=== PATIENT | female | born 1960 | race Caucasian/White ===

== ENCOUNTER 2018-03-06 05:23 | Inpatient (IN) ==
[2018-03-06] MEDS ORDERED: Scopalamine 1.5 MG Patch T-DERMAL SCH (06:45)
[2018-03-06] MEDS ORDERED: ceFAZolin 2 GM IV; once IV.SIG SCH (06:45)
[2018-03-06] MEDS ORDERED: Metoprolol Tartrate 25 MG Tablet PO SCH (06:45)
[2018-03-06] MEDS ORDERED: Chlorhexidine Gluconate 2% 1 Pack (2 Cloths) TOPICAL SCH (06:45)
[2018-03-06] MEDS ORDERED: Propofol Inj 500 MG/50 ML Vial ONE (06:48)
[2018-03-06] MEDS ORDERED: Sugammadex Inj 200 MG/2 ML Vial IV.PUSH ONE (06:48)
[2018-03-06] MEDS ORDERED: Dexmedetomidine Inj 200 MCG/2 ML Vial ONE (06:48)
[2018-03-06] MEDS ORDERED: Ketamine Inj 50 MG/5 ML Syringe IV.PUSH ONE (06:49)
[2018-03-06] MEDS ORDERED: Sodium Chlor 0.9% Inj 500 ML IV.SIG SCH (07:00)
[2018-03-06] MEDS ORDERED: Bupivacaine/Epinephrine 0.5% Inj 50 ML Vial ONE (07:02)
[2018-03-06] MEDS ORDERED: Bupivacaine PF 0.25% Inj 30 ML Vial ONE (07:07)
[2018-03-06] MEDS ORDERED: Acetaminophen-HYDROcodone 325/7.5 Liq 15 ML UDC PO PRN (09:27)
[2018-03-06] MEDS ORDERED: Post-op Orders (for Pharmacy) OTHER STA (09:27)
[2018-03-06] MEDS ORDERED: diphenhydrAMINE HCl 12.5 MG/5 ML Elixir UDC PO PRN (09:27)
[2018-03-06] MEDS ORDERED: Dextrose 50% in Water 50 ML Vial IV.PUSH PRN (09:31)
[2018-03-06] MEDS ORDERED: Morphine Inj 30 MG/30 ML PCA.VIAL PCA PRN (09:34)
[2018-03-06] MEDS ORDERED: Naloxone Inj 0.4 MG/ML Vial IV.PUSH PRN (09:34)
[2018-03-06] MEDS ORDERED: *morphine SULFATE 4 MG/ML PERIprocedure ONLY ONE ×2 (09:45→09:56)
[2018-03-06] MEDS ORDERED: Morphine Inj 4 MG/ML Vial ONE (09:47)
[2018-03-06] MEDS ORDERED: *Meperidine Inj 25 MG/ML Vial PERIprocedural Use ONLY ONE (09:52)
[2018-03-06] MEDS ORDERED: HYDROmorphone PF Inj 2 MG/ML Vial ONE (09:59)
[2018-03-06] MEDS: KCL 20 mEq/NACL 0.45% Inj 1,000 ML IV.CONT SCH ×4 (10:45→20:00)
[2018-03-06] MEDS ORDERED: Phenylephrine/NS 1000 MCG/10ML Syringe IV.PUSH ONE (12:00)
[2018-03-06] MEDS ORDERED: Glycopyrrolate Inj 1 MG/5 ML Syringe IV.PUSH ONE (12:00)
[2018-03-06] MEDS ORDERED: Lidocaine PF 1% Inj 5 ML Syringe INFILTRATN ONE (12:00)
[2018-03-06] MEDS ORDERED: Neostigmine Inj 5 MG/5 ML Syringe IV.PUSH ONE (12:00)
[2018-03-06] MEDS ORDERED: Ketorolac Inj 30 MG/ML (IVP) Vial IV.PUSH ONE (12:00)
[2018-03-06] MEDS: Enoxaparin Inj 40 MG/0.4 ML Syringe SQ SCH (13:40)
[2018-03-06] MEDS: Verapamil SR 240 MG Tablet PO SCH (13:41)
[2018-03-06] MEDS: Insulin NovoLIN Regular Correctional Sugar Inj SQ SCH (18:02)
[2018-03-07] MEDS: KCL 20 mEq/NACL 0.45% Inj 1,000 ML IV.CONT SCH (04:08)
[2018-03-07 05:43] LABS: Hematocrit 37.5 % (35.0-46.0); Hemoglobin 12.7 gm/dL (11.6-15.3); Lymph # (Auto) 1.1 th/mm3 (1.0-4.8); Lymph % (Auto) 9.2 % (9.0-44.0); Mean Corpuscular HGB Conc 33.9 % (32.0-36.0); Mean Corpuscular Hemoglobin 28.5 pg (27.0-34.0); Mean Corpuscular Volume 84.1 fL (80.0-100.0); Mean Platelet Volume 8.5 fL (7.0-11.0); Mono # (Auto) 0.4 th/mm3 (0.0-0.9); Mono % (Auto) 3.5 % (0.0-8.0); Neut # (Auto) 10.7 th/mm3 (1.8-7.7); Neut % (Auto) 87.3 % (16.0-70.0); Platelet Count 274 th/mm3 (150-450); Red Blood Count 4.46 mil/mm3 (4.00-5.30); Red Cell Distribution Width 13.7 % (11.6-17.2); White Blood Count 12.3 th/mm3 (4.0-11.0)
[2018-03-07] MEDS: Insulin NovoLIN Regular Correctional Sugar Inj SQ SCH ×5 (05:44→23:54)
[2018-03-07 05:46] LABS: Calcium 9.2 mg/dL (8.5-10.1); Carbon Dioxide 24.7 meq/L (21.0-32.0); Magnesium 2.4 mg/dL (1.5-2.5); Potassium 5.9 meq/L (3.5-5.1)
[2018-03-07] MEDS: Verapamil SR 240 MG Tablet PO SCH (08:18)
--- NOTE | 2018-03-07 08:38 | MP ---
cc: Chip Trotter MD DATE OF OPERATION: 03/06/2018 DATE OF OPERATION: 03/06/2018 PREOPERATIVE DIAGNOSIS: Severe obesity with a body mass index of 36, complicated by hypercholesterolemia, hypertension, type 2 diabetes. POSTOPERATIVE DIAGNOSIS: Severe obesity with a body mass index of 36, complicated by hypercholesterolemia, hypertension, type 2 diabetes. PROCEDURE PERFORMED: Laparoscopic vertical sleeve gastrectomy over a 36-T[place]is[place] ViSiGi bougie. SURGEON: Chip Trotter MD ANESTHESIA: General endotracheal anesthesia. ESTIMATED BLOOD LOSS: Scant. FINDINGS: Fatty liver. SPECIMENS: None. COMPLICATIONS: None. PROCEDURE IN DETAIL: The patient was brought to the operating room and placed on the operating table in supine position, bilateral sequential inflation device placed on lower extremities. General anesthesia was instituted. Antibiotics was initiated. The abdomen was prepped and draped sterilely. A point 15 cm distal to the xiphoid in the midline was anesthetized with 0.25% Marcaine with epinephrine. A skin incision was made, 5-mm OptiView port placed under direct vision and pneumoperitoneum created. Under direct vision, three 5-mm left upper quadrant, a 15-mm right upper quadrant, 5-mm right upper quadrant ports placed. Prior to placement of all ports the skin and peritoneum were anesthetized with 0.25% Marcaine with epinephrine. The patient was placed in reverse Trendelenburg position left side up, the Kelly-Flex retractor was placed. The left lobe of the liver was retracted. The vasculature along the greater curvature of the stomach was using harmonic scalpel starting a distance 5-cm proximal to the pylorus and carried towards the angle of His. The angle of His was taken down bluntly. Posterior ligamentous attachments were sharply . A 36-[place] ViSiGi bougie was placed at the start of the case, was placed on suction. Division of the stomach started 5 cm proximal to the pylorus and carried towards the angle of His to completely excise approximately 80% of the stomach. This was performed using an [employer] Flex stapler at the pylorus. The first firing was with a black load, followed by a green load and four gold loads. All staple loads were reinforced with SeamGuard. A distance of 2 cm was left from the angle incisura and the staple line and a distance of 1 cm left from the GE junction and the staple line. The pylorus was then occluded, methylene blue tinged saline was instilled. There was no evidence of extravasation. The gastrocolic ligament was then sutured to the posterior leaflet of the SeamGuard using a 2-0 Vicryl suture. Bleeding points were controlled with Evicel. The excised stomach was removed from the peritoneal cavity through the 15-mm port site. The fascia at the 15-mm port site was approximated with 0 Vicryl suture. The CO2 was then released, all ports were removed, all skin incisions closed with 4-0 Monocryl. The abdominal wall was cleaned. A sterile dressing was placed. The patient was awakened and taken to the recovery room. MD LALYA Hatfield/KEITH , 08:27 AM , 08:37 AM [place]
[2018-03-07] MEDS: Sod Chloride 0.9% Inj 1,000 ML IV.CONT SCH (09:56)
[2018-03-07] MEDS: Enoxaparin Inj 40 MG/0.4 ML Syringe SQ SCH (12:30)
--- NOTE | 2018-03-07 13:28 | P.PNGS ---
Subjective Patient reports: no new complaints Physical Exam Vital signs: Vital Signs 03/06/18 13:24 03/06/18 16:00 03/06/18 16:38 Temperature 98.7 F Pulse Rate 51 L Respiratory Rate 18 Blood Pressure 113/57 L Pulse Oximetry 97 99 98 03/06/18 20:00 03/06/18 22:36 03/07/18 00:00 Temperature 97.2 F L 97.6 F Pulse Rate 72 50 L Respiratory Rate 18 18 18 Blood Pressure 119/61 123/57 L Pulse Oximetry 98 98 03/07/18 04:00 03/07/18 08:00 03/07/18 08:18 Temperature 97.5 F L 98.1 F Pulse Rate 56 L 60 Respiratory Rate 18 18 Blood Pressure 117/59 L 121/58 L Pulse Oximetry 100 97 96 03/07/18 12:00 Temperature 97.7 F Pulse Rate 51 L Respiratory Rate 18 Blood Pressure 114/58 L Pulse Oximetry 96 Intake & Output 03/06/18 03/07/18 03/07/18 18:59 06:59 18:59 Intake Total 1100 / 1100 1340 / 1340 Balance 1100 / 1100 1340 / 1340 Intake: IV 1100 / 1100 1100 / 1100 Potassium Chlor 20 mEq/NACL 0. 1000 / 1000 1000 / 1000 45% Inj 1,000 ML @ 125 mls/hr IV.CONT .Q8H ELIZABETH Rx#:[id number] Ancef Inj 1,000 MG In NS Inj 100 / 100 100 / 100 100 ML @ 200 mls/hr IV.SIG Q8H ELIZABETH Rx#:[id number] Oral 240 / 240 Other: # Voids 3 Narrative: Laboratory Results - last 12 hr 03/07/18 03/07/18 03/07/18 04:56 05:00 05:00 WBC 12.3 H RBC 4.46 Hgb 12.7 Hct 37.5 MCV 84.1 MCH 28.5 MCHC 33.9 RDW 13.7 Plt Count 274 MPV 8.5 Neut % (Auto) 87.3 H Lymph % (Auto) 9.2 Gray % (Auto) 3.5 Eos % (Auto) 0.0 Baso % (Auto) 0.0 Neut # (Auto) 10.7 H Lymph # (Auto) 1.1 Gray # (Auto) 0.4 Eos # (Auto) 0.0 Baso # (Auto) 0.0 WBC Differential . Differential Comment Auto diff final Sodium 140 Potassium 5.9 H Chloride 105 Carbon Dioxide 24.7 Anion Gap 10 BUN 14 Creatinine 0.70 Estimated GFR 86 L POC Glucose 228 H Random Glucose 220 H Calcium 9.2 Magnesium 2.4 03/07/18 12:26 WBC RBC Hgb Hct MCV MCH MCHC RDW Plt Count MPV Neut % (Auto) Lymph % (Auto) Gray % (Auto) Eos % (Auto) Baso % (Auto) Neut # (Auto) Lymph # (Auto) Gray # (Auto) Eos # (Auto) Baso # (Auto) WBC Differential Differential Comment Sodium Potassium Chloride Carbon Dioxide Anion Gap BUN Creatinine Estimated GFR POC Glucose 198 H Random Glucose Calcium Magnesium - Constitutional no acute distress - Routine Respiratory Exam Present: CTA bilaterally - Routine Cardiovascular Exam Present: RRR - Routine Abdominal Exam Present: tenderness Comments: surgical incisions CDI Assessment and Plan - Assessment (1) Status post laparoscopic sleeve gastrectomy Code(s): Z98.84 - Bariatric surgery status Status: Acute Onset Date: ~ - Plan Change Reglan to scheduled and add carafate for reflux 10 units Levemir QHS and watch glucose trends Increase fluids as tolerated D/C potassium in IVF, check BMP in AM Discharge Planning: D/C home tomorrow - Attending Attestation The exam, history, and the medical decision-making described in the above note were completed with the assistance of the mid-level provider. I reviewed and agree with the findings presented. I attest that I had a [id number] encounter with the patient on the same day, and personally performed and documented my assessment and findings in the medical record.
[2018-03-07] MEDS: Sucralfate Liq 1 GM/10 ML UDC PO SCH ×3 (14:09→20:25)
[2018-03-07] MEDS ORDERED: Insulin Detemir Inj 1,000 UNIT/10 ML Vial SQ SCH (21:00)
[2018-03-08] MEDS: Insulin NovoLIN Regular Correctional Sugar Inj SQ SCH ×3 (05:29→18:35)
[2018-03-08] MEDS: Verapamil SR 240 MG Tablet PO SCH (08:38)
[2018-03-08] MEDS: Sucralfate Liq 1 GM/10 ML UDC PO SCH ×3 (08:38→16:15)
[2018-03-08 09:30] LABS: Anion Gap 10 meq/L (5-15); Blood Urea Nitrogen 14 mg/dL (7-18); Calcium 8.8 mg/dL (8.5-10.1); Chloride 105 meq/L (98-107); Glomerular Filtration Rate Greater Than 89 mL/min (>89); Glucose,Random 186 mg/dL (74-106); Potassium 4.1 meq/L (3.5-5.1); Sodium 141 meq/L (136-145)
[2018-03-08] MEDS: Sod Chloride 0.9% Inj 1,000 ML IV.CONT SCH (10:03)
[2018-03-08] MEDS: Enoxaparin Inj 40 MG/0.4 ML Syringe SQ SCH (12:42)
[2018-03-08] MEDS ORDERED: Promethazine 25 MG Supp RECTAL PRN (13:08)
--- NOTE | 2018-03-08 15:00 | P.PNGS ---
Subjective Patient reports: no new complaints, flatus Physical Exam Vital signs: Vital Signs 03/07/18 16:00 03/07/18 20:00 03/08/18 00:00 Temperature 98.4 F 98.3 F 97.8 F Pulse Rate 51 L 54 L 63 Respiratory Rate 19 18 15 Blood Pressure 120/59 L 128/71 156/69 H Pulse Oximetry 97 98 95 03/08/18 08:00 03/08/18 11:29 03/08/18 12:13 Temperature 98.0 F 98.2 F Pulse Rate 63 61 Respiratory Rate 24 17 Blood Pressure 156/72 H 164/75 H Pulse Oximetry 95 95 96 Intake & Output 03/07/18 03/08/18 03/08/18 18:59 06:59 18:59 Intake Total 640 / 640 240 / 240 1000 / 1000 Balance 640 / 640 240 / 240 1000 / 1000 Weight 100 kg Intake: IV 1000 / 1000 NS Inj 1,000 ML @ 42 mls/hr IV. 1000 / 1000 CONT .[id number] ELIZABETH Rx#:[id number] Oral 640 / 640 240 / 240 Other: # Voids 8 Narrative: Laboratory Results - last 12 hr - Constitutional no acute distress - Routine Abdominal Exam Present: soft, tenderness (normal post operative tenderness, surgical incisions CDI) Assessment and Plan - Assessment (1) Status post laparoscopic sleeve gastrectomy Code(s): Z98.84 - Bariatric surgery status Status: Acute Onset Date: ~ - Plan Will D/C home today with Carafate Meds as per discharge orders Continue to increase fluids as tolerated Continue with frequent ambulation Discharge Planning: D/C home today - Attending Attestation The exam, history, and the medical decision-making described in the above note were completed with the assistance of the mid-level provider. I reviewed and agree with the findings presented. I attest that I had a [id number] encounter with the patient on the same day, and personally performed and documented my assessment and findings in the medical record.
== END 2018-03-08 18:45 | disposition home or self-care (01) ==
LOC: HSDI 05:23 → N07 12:47
PROVIDERS: ADMIT Surgery; ATTEND Surgery
DX: Z85.828 Personal history of other malignant neoplasm of skin; K21.9 Gastro-esophageal reflux disease without esophagitis; I10 Essential (primary) hypertension; E78.00 Pure hypercholesterolemia, unspecified; E11.9 Type 2 diabetes mellitus without complications; E66.01 Morbid (severe) obesity due to excess calories; Z68.35 Body mass index [BMI] 35.0-35.9, adult; Z88.8 Allergy status to other drugs, medicaments and biological substances; Z79.4 Long term (current) use of insulin; K76.0 Fatty (change of) liver, not elsewhere classified

== ENCOUNTER 2018-05-12 03:30 | Inpatient (IN) ==
[2018-05-12 04:04] LABS: Baso # (Auto) 0.1 th/mm3 (0.0-0.2); Baso % (Auto) 0.6 % (0.0-2.0); Eos % (Auto) 0.1 % (0.0-4.0); Hematocrit 48.6 % (35.0-46.0); Hemoglobin 16.2 gm/dL (11.6-15.3); Lymph # (Auto) 1.8 th/mm3 (1.0-4.8); Lymph % (Auto) 14.1 % (9.0-44.0); Mean Corpuscular HGB Conc 33.4 % (32.0-36.0); Mean Corpuscular Hemoglobin 29.5 pg (27.0-34.0); Mean Corpuscular Volume 88.2 fL (80.0-100.0); Mean Platelet Volume 8.5 fL (7.0-11.0); Mono # (Auto) 0.9 th/mm3 (0.0-0.9); Mono % (Auto) 6.9 % (0.0-8.0); Neut # (Auto) 10.1 th/mm3 (1.8-7.7); Neut % (Auto) 78.3 % (16.0-70.0); Platelet Count 335 th/mm3 (150-450); Red Blood Count 5.51 mil/mm3 (4.00-5.30); Red Cell Distribution Width 15.7 % (11.6-17.2); White Blood Count 12.9 th/mm3 (4.0-11.0)
[2018-05-12] MEDS ORDERED: Pantoprazole Inj 80 MG in Sodium Chlor 0.9% Inj 35 ML IV.SIG ONE (04:08)
[2018-05-12] MEDS ORDERED: Sod Chloride 0.9% Inj 1,000 ML IV.SIG SCH ×2 (04:15→06:00)
[2018-05-12 04:19] LABS: Alanine Aminotransferase 23 U/L (10-53); Albumin 4.7 g/dL (3.4-5.0); Anion Gap 21 meq/L (5-15); Aspartate Aminotransferase 17 U/L (15-37); Blood Urea Nitrogen 14 mg/dL (7-18); Calcium 9.9 mg/dL (8.5-10.1); Carbon Dioxide 9.9 meq/L (21.0-32.0); Chloride 110 meq/L (98-107); Glomerular Filtration Rate 54 mL/min (>89); Glucose,Random 174 mg/dL (74-106); Potassium 4.4 meq/L (3.5-5.1); Sodium 141 meq/L (136-145)
[2018-05-12 04:23] LABS: Alkaline Phosphatase 95 U/L (45-117); Total Protein 9.4 g/dL (6.4-8.2)
--- NOTE | 2018-05-12 04:36 | ED ---
HPI General Chief complaint: Chest Pain Stated complaint: vomiting, shoulder pain Time Seen by Provider: 05/12/18 03:45 Source: patient and old records reviewed Mode of arrival: ambulatory Limitations: no limitations History of Present Illness HPI narrative: This patient presents with a chief complaint of chest pain and inability to tolerate oral food or fluids. Onset was about 2 days ago. She reports 1 or 2 episodes of emesis. This patient's pertinent history is that she is status post gastric sleeve gastrectomy on 03/06. This was done by Dr. Mobley. She is on a proton pump inhibitor and has been compliant with her medication. She states that she was doing well until a couple of days ago when her symptoms started. She is feeling weak and dizzy. Her mouth is dry. Onset (ago): day(s) (2) Severity: moderate Relieving factors: none Exacerbating factors: none Associated symptoms: chest pain, loss of appetite, nausea/vomiting and weakness Related Data Home Medications Medication Instructions Recorded Confirmed pantoprazole 40 mg PO DAILY 03/03/18 05/12/18 pravastatin 40 mg PO DAILY 03/03/18 05/12/18 verapamil 240 mg PO QAM 03/03/18 05/12/18 empagliflozin [Jardiance] 25 mg PO DAILY 05/12/18 05/12/18 Allergies Allergy/AdvReac Type Severity Reaction Status Date / Time epinephrine Allergy Severe HEART Verified 05/12/18 03:35 RACES SVT Review of Systems ROS: all other systems reviewed are negative [facility] Medical History Medical History Diabetes (Acute) High cholesterol (Acute) Hx of fracture of patella (Acute) Hypertension (Acute) Obesity (Acute) Pain, joint, knee, left (Acute) Pain, joint, knee, right (Acute) Surgical History Surgical History History of (Acute) History of cervical discectomy (Acute) History of renal stent (Acute) Hx of cataract removal with insertion of prosthetic lens (Acute) Hx of cholecystectomy (Acute) Hx of tonsillectomy (Acute) Social History Social History Substance History: No History of Abuse Second Hand Smoke Exposure: No Smoking Status: Never smoker How Often Do You Have a Drink Containing Alcohol: Never Recent Travel in [facility] within the Last 8 Weeks: No Recent Out of Country Travel within the Last 8 Weeks: No Immunization History Tetanus Immunization: >5 Years Hx Influenza Vaccine This Season: No Exam Const General: cooperative, healthy appearing, comfortable, no acute distress and well developed Orientation: alert, awake and oriented x3 HENMT Head: normal to inspection, normocephalic and atraumatic Mouth: moist mucous membranes abnormal (Mucous membranes are slightly dry) Eyes Alignment and Position: alignment normal and position abnormal Conjunctivae: conjunctivae normal Sclera: sclerae normal EOM: EOM intact bilaterally Neck Neck: normal visual inspection and full ROM Chest Chest: normal inspection of the chest Resp Effort & Inspection: normal respiratory effort and able to speak in complete sentences Auscultation: clear to auscultation bilaterally Cardio Rate: regular rate Rhythm: regular rhythm GI Inspection: normal to inspection Palpation: soft Back/Spine/Pelvis Cervical Spine: cervical ROM normal Thoracic/Lumbar Spine: thoraco-lumbar ROM normal Skin General: no rashes or lesions noted, turgor normal and dry skin Neuro General: alert, awake, oriented x3, moves all extremities and CN's II-XI intact bilaterally Extrem General: normal to inspection and full ROM Psych Appearance: grossly normal Mental Status: mental status grossly normal Speech and Movement: speech and movement normal Mood: congruent mood Affect: normal affect Attitude: cooperative Thought Process: normal Thought Content: normal Judgment: judgment good Course Reevaluation(s) Reevaluation #1: I have explained the laboratory findings with the patient and her and have told her that she needs to be admitted to the hospital for further evaluation and treatment. She is feeling much better. Time: 05:53 Consultations Consultation #1: Dr. Paniagua will see the patient. She will be admitted to their service. He has suggested an upper GI series which has been ordered. Time: 05:52 Initial Documented Vital Signs Temperature 98.1 F 05/12/18 03:35 Pulse Rate 88 05/12/18 03:35 Respiratory Rate 16 05/12/18 03:35 Blood Pressure 146/74 H 05/12/18 03:35 Pulse Oximetry 100 05/12/18 03:35 Last Documented Vital Signs Temperature 98.1 F 05/12/18 03:35 Pulse Rate 87 05/12/18 03:51 Respiratory Rate 16 05/12/18 03:35 Blood Pressure 146/74 H 05/12/18 03:35 Pulse Oximetry 98 05/12/18 03:53 Medical Decision Making MDM Narrative Medical decision making narrative: This patient is 2 months status post gastric sleeve gastrectomy. She has been doing well postoperatively until couple of days ago. She has developed some chest discomfort associated with inability to tolerate oral fluids or food. She reports compliance with her PPI. An IV has been started. She is being given a fluid bolus. She is being given a dose of IV Reglan as well as a Protonix bolus and drip. Laboratory evaluation is concerning for acidosis. A lactic acid level has been added. Medical Screen Exam Complete: Yes Emergency Medical Condition: Yes Differential Diagnosis Differential Diagnosis: Differential diagnosis includes but is not limited to viral gastritis, food poisoning, pancreatitis, pneumonia, hepatitis, acute coronary syndrome, Medical Records Medical records reviewed: Yes I reviewed the patient's medical records. Lab Data Lab results reviewed: Yes I reviewed the patient's lab results. Result diagrams: 05/12/18 03:55 05/12/18 03:55 Lab Results 05/12/18 05/12/18 05/12/18 Range/Units 03:55 03:55 05:04 WBC 12.9 H (4.0-11.0) th/mm3 RBC 5.51 H (4.00-5.30) mil/mm3 Hgb 16.2 H (11.6-15.3) gm/dL Hct 48.6 H (35.0-46.0) % MCV 88.2 (80.0-100.0) fL MCH 29.5 (27.0-34.0) pg MCHC 33.4 (32.0-36.0) % RDW 15.7 (11.6-17.2) % Plt Count 335 (150-450) th/mm3 MPV 8.5 (7.0-11.0) fL Neut % (Auto) 78.3 H (16.0-70.0) % Lymph % (Auto) 14.1 (9.0-44.0) % Webb % (Auto) 6.9 (0.0-8.0) % Eos % (Auto) 0.1 (0.0-4.0) % Baso % (Auto) 0.6 (0.0-2.0) % Neut # (Auto) 10.1 H (1.8-7.7) th/mm3 Lymph # (Auto) 1.8 (1.0-4.8) th/mm3 Webb # (Auto) 0.9 (0.0-0.9) th/mm3 Eos # (Auto) 0.0 (0.0-0.4) th/mm3 Baso # (Auto) 0.1 (0.0-0.2) th/mm3 WBC Differential . Differential Comment Auto diff final Sodium 141 (136-145) meq/L Potassium 4.4 (3.5-5.1) meq/L Chloride 110 H (98-107) meq/L Carbon Dioxide 9.9 L (21.0-32.0) meq/L Anion Gap 21 H (5-15) meq/L BUN 14 (7-18) mg/dL Creatinine 1.04 H (0.50-1.00) mg/dL Estimated GFR 54 L (>89) mL/min Random Glucose 174 H (74-106) mg/dL Lactic Acid 1.0 (0.4-2.0) mmol/L Calcium 9.9 (8.5-10.1) mg/dL Total Bilirubin 0.7 (0.2-1.0) mg/dL AST 17 (15-37) U/L ALT 23 (10-53) U/L Alkaline Phosphatase 95 (45-117) U/L Troponin I Less than 0.02 L (0.02-0.05) ng/mL Total Protein 9.4 H (6.4-8.2) g/dL Albumin 4.7 (3.4-5.0) g/dL Imaging Data Radiologist's impression: Chest X-Ray 05/12/18 03:48 CONCLUSION: No evidence of acute cardiopulmonary disease. ECG Data EKG Prior to Arrival: No Attestation: I personally reviewed and interpreted this ECG as follows: (EKG shows sinus rhythm with a ventricular rate of 81. No acute STT wave changes.) Discharge Plan Discharge Disposition Patient Disposition: 30 Still Patient Discharge Details Diagnosis: Acidosis, metabolic, Dysphagia Physicians Team ED Provider: Gisela Savage Primary Care Provider: Ghada Vaughn Attending Provider: Mikey Paniagua Status ED Status: Admitted Patient
[2018-05-12] MEDS ORDERED: Pantoprazole Inj 80 MG in Sodium Chlor 0.9% Inj 100 ML IV.CONT SCH (05:00)
--- NOTE | 2018-05-12 05:03 | XR ---
EXAM DATE: 05/12/2018 4:48 AM EDT AGE/SEX: 57 years / Female INDICATIONS: Chest pain. CLINICAL DATA: This is the patient's initial encounter. Patient reports that signs and symptoms have been present for 1 day and indicates a pain score of 4/10. MEDICAL/SURGICAL HISTORY: Diabetes mellitus type II. SVT. Gastric bypass. section. Cholecystectomy. C-spine discectomy. COMPARISON: No prior exams available for comparison. FINDINGS: A single AP view of the chest demonstrates the lungs to be symmetrically aerated without evidence of mass, infiltrate or effusion. The cardiomediastinal contours are unremarkable. Osseous structures a re intact. CONCLUSION: No evidence of acute cardiopulmonary disease. Electronically signed by: Javi Dawson MD 05/12/2018 5:02 AM EDT
[2018-05-12] MEDS ORDERED: Diatrizoate Meglum/Diatrizoate Sod Liq 120 ML Bottle (for RAD diag) PO ONE (09:30)
--- NOTE | 2018-05-12 10:01 | FL ---
EXAM DATE: 05/12/2018 9:47 AM EDT AGE/SEX: 57 years / Female INDICATIONS: Nausea and vomiting with loss of appetite and weakness. CLINICAL DATA: This is the patient's initial encounter. Patient reports that signs and symptoms have been present for 3 days and indicates a pain score of 0/10. MEDICAL/SURGICAL HISTORY: None. . February 2018 gastric sleeve surgery. COMPARISON: No prior exams available for comparison. FLUORO TIME: 1.9 IMAGE COUNT: 8 FINDINGS: Patient has had a gastric sleeve. There is a small gastric pouch that empties poorly in the upright p osition. Gastrografin remains pooled within the esophagus for 5 minutes. On a delayed film 50 minutes post procedure contrast is seen going through a normal-appearing sleeve into the distal stomach. CONCLUSION: Initial films have suggested obstruction of the sleeve. The sleeve is not obstructed but poorly empties even in the upright position. Electronically signed by: Javier Wright MD 05/12/2018 9:59 AM EDT
[2018-05-12] MEDS ORDERED: Morphine Sulfate Inj 2 MG/ML Vial IV.PUSH PRN (11:37)
[2018-05-12] MEDS: Sod Chloride 0.9% Inj 1,000 ML IV.CONT SCH ×2 (13:36→19:50)
--- NOTE | 2018-05-12 13:55 | P.CONGI ---
History of Present Illness Consult date: 05/12/18 Consult reason: Dysphagia with emesis post gastric sleeve. Chief complaint: Dysphagia following Gastric Sleeve, Acidosis History of Present Illness: Ms. Gandhi is a 57-year-old female who presented to the emergency room today with complaint of difficulty swallowing solid food and liquids with persistent nausea and vomiting over the last 2-3 days. Patient's history significant for gastric sleeve gastrectomy on March 06, 2018. Patient takes PPI as home medication and reports that she has been taking same without interruption. She denies use of any blood thinners. Patient n.p.o. at this time. She reports last EGD done prior to gastric sleeve surgery. Last colonoscopy done at age 48 per patient with no abnormalities found at that time. Patient denies any noted blood in emesis or stools. States she has a bowel movement every 3-4 days and that is her norm. Patient denies any abdominal pain. She endorses increasing generalized weakness over the last few days which she attributes to the nausea and vomiting. This practice has been consulted to evaluate patient for dysphagia, nausea and vomiting. Plan for EGD today. <Mary Pritchett - Last Filed: 05/12/18 13:59> Review of Systems Constitutional: Reports fatigue, Reports weakness, Denies body ache(s), Denies chills Ears, Nose, Mouth, and Throat: Reports difficulty swallowing, Reports dry mouth Cardiovascular: Reports lightheadedness, Denies chest pain Comments: Patient reported chest wall pain while driving to hospital but denies same at this time and states it was not related to eating a meal. Respiratory: Denies cough, Denies shortness of breath Gastrointestinal: Reports difficulty swallowing, Reports nausea, Reports vomiting, Denies abdominal pain, Denies bright, red blood in stools, Denies change in bowel habits, Denies change in stools, Denies coffee ground vomit, Denies heartburn, Denies vomiting blood <Mary Pritchett - Last Filed: 05/12/18 13:59> PMFSH - History History Provided By: Patient - Medical History Medical History: Medical History (Last Reviewed 05/12/18 @ 04:33 by Gisela Savage) Diabetes High cholesterol Hx of fracture of patella Hypertension Obesity Pain, joint, knee, left Pain, joint, knee, right - Surgical History Surgical History: Surgical History (Last Reviewed 05/12/18 @ 04:33 by Gisela Savage) History of History of cervical discectomy History of renal stent Hx of cataract removal with insertion of prosthetic lens Hx of cholecystectomy Hx of tonsillectomy - Tobacco History Second Hand Smoke Exposure: No Smoking Status: Never smoker - Alcohol History How Often Do You Have a Drink Containing Alcohol: Never - Substance Use History Substance History: No History of Abuse - Travel History Recent Travel in the [place] Within the Last 8 Weeks: No Recent Travel Out of the Country Within the Last 8 Weeks: No - Immunization History Tetanus Immunization: >5 Years Hx Influenza Vaccine This Season: No <Mary Pritchett - Last Filed: 05/12/18 13:59> - Medical History Medical History: Medical History (Last Reviewed 05/12/18 @ 04:33 by Gisela Savage) Diabetes High cholesterol Hx of fracture of patella Hypertension Obesity Pain, joint, knee, left Pain, joint, knee, right - Surgical History Surgical History: Surgical History (Last Reviewed 05/12/18 @ 04:33 by Gisela Savage) History of History of cervical discectomy History of renal stent Hx of cataract removal with insertion of prosthetic lens Hx of cholecystectomy Hx of tonsillectomy <Jerrell Casper - Last Filed: 05/12/18 18:17> Medications and Allergies Active Medications: Active Medications Pantoprazole Sodium 80 mg/ (Sodium Chloride) 100 mls @ 10 mls/hr IV.CONT CONT ELIZABETH Last Admin: 05/12/18 05:34 Dose: 10 mls/hr Sodium Chloride (Ns Inj) 1,000 mls @ 0 mls/hr IV.SIG BOLUS ELIZABETH Last Infusion: 05/12/18 07:19 Dose: Infused Sodium Chloride (Ns Inj) 1,000 mls @ 0 mls/hr IV.SIG BOLUS ELIZABETH Last Infusion: 05/12/18 08:31 Dose: Infused Sodium Chloride (Ns Inj) 1,000 mls @ 125 mls/hr IV.CONT .Q8H ELIZABETH Last Admin: 05/12/18 13:36 Dose: 125 mls/hr Morphine Sulfate (Morphine Inj) 2 mg IV.PUSH Q4H PRN PRN Reason: PAIN SCALE 1 TO 5 Ondansetron HCl (Zofran Inj) 4 mg IV.PUSH Q6H PRN PRN Reason: NAUSEA Last Admin: 05/12/18 12:01 Dose: 4 mg Oxycodone/Acetaminophen (Percocet 5/325 Mg) 1 tab PO Q4H PRN PRN Reason: PAIN SCALE 1 TO 5 Sodium Chloride (Ns Flush) 2 ml IV.FLUSH BID ELIZABETH Sodium Chloride (Ns Flush) 2 ml IV.FLUSH UNSCH PRN PRN Reason: FLUSH AFTER USING IV ACCESS <Mary Pritchett - Last Filed: 05/12/18 13:59> Active Medications: Active Medications Pantoprazole Sodium 80 mg/ (Sodium Chloride) 100 mls @ 10 mls/hr IV.CONT CONT ELIZABETH Last Infusion: 05/12/18 16:25 Dose: 10 mls/hr Sodium Chloride (Ns Inj) 1,000 mls @ 125 mls/hr IV.CONT .Q8H ELIZABETH Last Admin: 05/12/18 13:36 Dose: 125 mls/hr Miscellaneous Information ([facility] Nursing Information) 1 each OTHER UNSCH PRN PRN Reason: SEE LABEL COMMENTS Stop: 05/13/18 17:32 Morphine Sulfate (Morphine Inj) 2 mg IV.PUSH Q4H PRN PRN Reason: PAIN SCALE 1 TO 5 Ondansetron HCl (Zofran Inj) 4 mg IV.PUSH Q6H PRN PRN Reason: NAUSEA Last Admin: 05/12/18 12:01 Dose: 4 mg Oxycodone/Acetaminophen (Percocet 5/325 Mg) 1 tab PO Q4H PRN PRN Reason: PAIN SCALE 1 TO 5 Sodium Chloride (Ns Flush) 2 ml IV.FLUSH BID ELIZABETH Sodium Chloride (Ns Flush) 2 ml IV.FLUSH UNSCH PRN PRN Reason: FLUSH AFTER USING IV ACCESS <Jerrell Casper - Last Filed: 05/12/18 18:17> Allergies Allergy/AdvReac Type Severity Reaction Status Date / Time epinephrine Allergy Severe HEART Verified 05/12/18 03:35 RACES SVT Home Medications Medication Instructions Recorded Confirmed Type pantoprazole 40 mg PO DAILY 03/03/18 05/12/18 History pravastatin 40 mg PO DAILY 03/03/18 05/12/18 History verapamil 240 mg PO QAM 03/03/18 05/12/18 History empagliflozin [Jardiance] 25 mg PO DAILY 05/12/18 05/12/18 History Exam Vital signs: Vital Signs 05/12/18 03:35 05/12/18 03:51 05/12/18 03:53 Temperature 98.1 F Pulse Rate 88 87 Respiratory Rate 16 Blood Pressure 146/74 H Pulse Oximetry 100 98 05/12/18 07:20 05/12/18 07:21 05/12/18 08:00 Temperature Pulse Rate 92 H 87 Respiratory Rate 22 16 Blood Pressure 120/61 146/67 H Pulse Oximetry 99 99 99 05/12/18 12:00 Temperature 97.8 F Pulse Rate 85 Respiratory Rate 16 Blood Pressure 140/64 Pulse Oximetry 97 Intake & Output 05/11/18 05/12/18 05/12/18 18:59 06:59 18:59 Intake Total 35 / 35 1999 Balance 35 / 35 1999 Weight 82.554 kg Intake: IV 35 / 35 1999 Protonix Inj 80 MG In NS Inj 35 35 / 35 ML @ 420 mls/hr IV.SIG BOLUS ONE Rx#:[id number] NS Inj 1,000 ML @ Wide Open IV. 1999 SIG BOLUS ELIZABETH Rx#:[id number] - Constitutional no acute distress, mild distress - Routine HEENT Exam Head: Present: normocephalic - Routine Neck Exam Present: supple, full ROM - Routine Chest/Breast/Axilla Exam Chest wall: Absent: tenderness - Routine Respiratory Exam Present: CTA bilaterally. Absent: accessory muscle use - Routine Cardiovascular Exam Present: RRR - Routine Abdominal Exam Present: soft, normoactive bowel sounds. Absent: tenderness, distended, guarding, firm - Routine Extremities Exam Present: full ROM. Absent: edema - Routine Skin Exam Present: intact, dry, warm - Routine Neurological Exam Present: alert, oriented X3 <Pritchett,Mary - Last Filed: 05/12/18 13:59> Vital signs: Vital Signs 05/12/18 03:35 05/12/18 03:51 05/12/18 03:53 Temperature 98.1 F Pulse Rate 88 87 Respiratory Rate 16 Blood Pressure 146/74 H Pulse Oximetry 100 98 05/12/18 07:20 05/12/18 07:21 05/12/18 08:00 Temperature Pulse Rate 92 H 87 Respiratory Rate 22 16 Blood Pressure 120/61 146/67 H Pulse Oximetry 99 99 99 05/12/18 12:00 05/12/18 16:00 05/12/18 17:20 Temperature 97.8 F 98.0 F 98 F Pulse Rate 85 97 H 129 H Respiratory Rate 16 16 22 Blood Pressure 140/64 154/72 H 166/76 H Pulse Oximetry 97 97 100 05/12/18 17:30 05/12/18 17:45 05/12/18 18:00 Temperature 97.5 F L Pulse Rate 116 H 109 H 105 H Respiratory Rate 22 25 H 22 Blood Pressure 138/56 L 131/62 131/60 Pulse Oximetry 99 100 100 Intake & Output 05/11/18 05/12/18 05/12/18 18:59 06:59 18:59 Intake Total 1999 Balance 1999 Weight 82.554 kg Intake: IV 1999 Protonix Inj 80 MG In NS Inj 0 / 0 100 ML @ 10 mls/hr IV.CONT CONT ELIZABETH Rx#:[id number] Protonix Inj 80 MG In NS Inj 35 35 ML @ 420 mls/hr IV.SIG BOLUS ONE Rx#:[id number] NS Inj 1,000 ML @ Wide Open IV. 1999 SIG BOLUS ELIZABETH Rx#:[id number] <Jerrell Casper E - Last Filed: 05/12/18 18:17> Results - Labs CBC & Chem 7: 05/12/18 03:55 05/12/18 03:55 Labs: Laboratory Results - last 24 hr 05/12/18 05/12/18 05/12/18 03:55 03:55 05:04 WBC 12.9 H RBC 5.51 H Hgb 16.2 H Hct 48.6 H MCV 88.2 MCH 29.5 MCHC 33.4 RDW 15.7 Plt Count 335 MPV 8.5 Neut % (Auto) 78.3 H Lymph % (Auto) 14.1 [place] % (Auto) 6.9 Eos % (Auto) 0.1 Baso % (Auto) 0.6 Neut # (Auto) 10.1 H Lymph # (Auto) 1.8 [place] # (Auto) 0.9 Eos # (Auto) 0.0 Baso # (Auto) 0.1 WBC Differential . Differential Comment Auto diff final Sodium 141 Potassium 4.4 Chloride 110 H Carbon Dioxide 9.9 L Anion Gap 21 H BUN 14 Creatinine 1.04 H Estimated GFR 54 L POC Glucose Random Glucose 174 H Lactic Acid 1.0 Calcium 9.9 Total Bilirubin 0.7 AST 17 ALT 23 Alkaline Phosphatase 95 Troponin I Less than 0.02 L Total Protein 9.4 H Albumin 4.7 05/12/18 13:37 WBC RBC Hgb Hct MCV MCH MCHC RDW Plt Count MPV Neut % (Auto) Lymph % (Auto) [place] % (Auto) Eos % (Auto) Baso % (Auto) Neut # (Auto) Lymph # (Auto) [place] # (Auto) Eos # (Auto) Baso # (Auto) WBC Differential Differential Comment Sodium Potassium Chloride Carbon Dioxide Anion Gap BUN Creatinine Estimated GFR POC Glucose 159 H Random Glucose Lactic Acid Calcium Total Bilirubin AST ALT Alkaline Phosphatase Troponin I Total Protein Albumin - Imaging Impressions Chest X-Ray 05/12/18 03:48 CONCLUSION: No evidence of acute cardiopulmonary disease. Gastrografin Study 05/12/18 05:51 CONCLUSION: Initial films have suggested obstruction of the sleeve. The sleeve is not obstructed but poorly empties even in the upright position. <Mary Pritchett - Last Filed: 05/12/18 13:59> - Labs CBC & Chem 7: 05/12/18 03:55 05/12/18 03:55 Labs: Laboratory Results - last 24 hr 05/12/18 05/12/18 05/12/18 03:55 03:55 05:04 WBC 12.9 H RBC 5.51 H Hgb 16.2 H Hct 48.6 H MCV 88.2 MCH 29.5 MCHC 33.4 RDW 15.7 Plt Count 335 MPV 8.5 Neut % (Auto) 78.3 H Lymph % (Auto) 14.1 [place] % (Auto) 6.9 Eos % (Auto) 0.1 Baso % (Auto) 0.6 Neut # (Auto) 10.1 H Lymph # (Auto) 1.8 [place] # (Auto) 0.9 Eos # (Auto) 0.0 Baso # (Auto) 0.1 WBC Differential . Differential Comment Auto diff final Sodium 141 Potassium 4.4 Chloride 110 H Carbon Dioxide 9.9 L Anion Gap 21 H BUN 14 Creatinine 1.04 H Estimated GFR 54 L POC Glucose Random Glucose 174 H Lactic Acid 1.0 Calcium 9.9 Total Bilirubin 0.7 AST 17 ALT 23 Alkaline Phosphatase 95 Troponin I Less than 0.02 L Total Protein 9.4 H Albumin 4.7 05/12/18 05/12/18 13:37 17:46 WBC RBC Hgb Hct MCV MCH MCHC RDW Plt Count MPV Neut % (Auto) Lymph % (Auto) [place] % (Auto) Eos % (Auto) Baso % (Auto) Neut # (Auto) Lymph # (Auto) [place] # (Auto) Eos # (Auto) Baso # (Auto) WBC Differential Differential Comment Sodium Potassium Chloride Carbon Dioxide Anion Gap BUN Creatinine Estimated GFR POC Glucose 159 H 159 H Random Glucose Lactic Acid Calcium Total Bilirubin AST ALT Alkaline Phosphatase Troponin I Total Protein Albumin - Imaging Impressions Chest X-Ray 05/12/18 03:48 CONCLUSION: No evidence of acute cardiopulmonary disease. Gastrografin Study 05/12/18 05:51 CONCLUSION: Initial films have suggested obstruction of the sleeve. The sleeve is not obstructed but poorly empties even in the upright position. <Jerrell Casper E - Last Filed: 05/12/18 18:17> Assessment and Plan (1) Nausea & vomiting Status: Acute Code(s): R11.2 - Nausea with vomiting, unspecified - Plan Ms. Gandhi is a 57-year-old female who presented to the emergency room today with complaint of difficulty swallowing solid food and liquids with persistent nausea and vomiting over the last 2-3 days. Patient's history significant for gastric sleeve gastrectomy on March 06, 2018. Patient takes PPI as home medication and reports that she has been taking same without interruption. She denies use of any blood thinners. Patient n.p.o. at this time. She reports last EGD done prior to gastric sleeve surgery. Last colonoscopy done at age 48 per patient with no abnormalities found at that time. Patient denies any noted blood in emesis or stools. States she has a bowel movement every 3-4 days and that is her norm. Patient denies any abdominal pain. She endorses increasing generalized weakness over the last few days which she attributes to the nausea and vomiting. This practice has been consulted to evaluate patient for dysphagia, nausea and vomiting. Plan for EGD today. Procedure discussed with patient who verbalizes agreement and understanding. Plan: -N.p.o. status -Consent for EGD -Schedule for procedure -Supportive care -Further recommendations based on future findings This patient has been seen by myself and Dr. Casper and this note is written on his behalf - Attending Attestation Dr. Barksdale <Mary Pritchett - Last Filed: 05/12/18 13:59> (1) Nausea & vomiting Status: Acute Code(s): R11.2 - Nausea with vomiting, unspecified - Plan Patient seen and examined Agree with above Continue with current supportive care Monitor labs We will proceed with upper endoscopy next further recommendations she will follow <Jerrell Casper - Last Filed: 05/12/18 18:17>
[2018-05-12] MEDS ORDERED: Succinylcholine Inj 100 MG/5 ML Syringe IV.PUSH ONE (16:45)
[2018-05-12] MEDS ORDERED: Lidocaine PF 1% Inj 5 ML Syringe OTHER ONE (16:45)
[2018-05-12] MEDS ORDERED: *Promethazine Inj 25 MG/ML Vial PERIprocedural use ONLY ONE (17:36)
[2018-05-12] MEDS ORDERED: fentaNYL Citrate Inj 100 MCG/2 ML Ampul ONE (17:42)
--- NOTE | 2018-05-12 18:20 | P.PCN ---
Date of procedure: 05/12/18 Pre-op diagnosis: Nausea and vomiting with dysphagia, 1 month post gastric sleeve surgery Procedure: PROCEDURE PERFORMED EGD with biopsy PROCEDURE: The procedure, risks and benefits were discussed with Patient/POA and informed consent was obtained. Anesthesia sedated Patient with Diprivan. Patient was placed in the left lateral decubitus position. EGD: The Pentax videoscope was introduced through the oropharynx and advanced to the second portion of the duodenum under direct visualization. Retroflexion was performed in the stomach. FINDINGS: The esophagus this appeared to be unremarkable with normal limits all the way to the GE junction The stomach and did have a narrower lumen secondary to the recent gastric sleeve surgery the gastric mucosa appeared to be diffusely erythemic and a punctate and patchy fashion with some edema but the lumen was open and I was able to advance the scope with ease into the antrum there was a mild kink at the distal end of the gastric body the antrum had the same appearance as far as the mucosa as the gastric body biopsies were taken from the antrum for further evaluation The duodenum this appeared to be unremarkable with normal limits ESTIMATED BLOOD LOSS: Minimal SPECIMENS REMOVED: Antral biopsies COMPLICATIONS: None IMPRESSION: Nunez gastritis Surgical changes consistent with gastric sleeve PLAN: Await biopsies Continue with PPI Precautionary measures with intake Phenergan 25 mg every 4-6 as needed to help with nausea and vomiting If symptoms persist may consider dilation with the 3 cm achalasia balloon Case discussed with Dr. Mobley Anesthesia: PREETI Surgeon: Jerrell Casper Condition: stable Disposition: floor
--- NOTE | 2018-05-13 01:06 | ECG ---
Date Performed: 05/12/2018 Time Performed: 03:46:57 PTAGE: 57 years EKG: Sinus rhythm NONSPECIFIC T-WAVE ABNORMALITY BORDERLINE ECG PREVIOUS TRACING : 01/31/2007 15.25 Compared to previous tracing, now with non-specific ST/T w ave changes DOCTOR: Leonidas Nicholas Interpretating Date/Time 05/13/2018 01:04:48
[2018-05-13] MEDS ORDERED: Dextrose 50% in Water 50 ML Vial IV.PUSH PRN ×2 (03:30→10:51)
[2018-05-13] MEDS: Insulin NovoLOG Aspart Correctional Sugar Inj SQ SCH ×3 (03:45→12:15)
[2018-05-13] MEDS: Sod Chloride 0.9% Inj 1,000 ML IV.CONT SCH ×2 (04:40→12:15)
[2018-05-13 10:38] LABS: ABG Base Excess -28.1 mmol/L (-2-2)
[2018-05-13 10:43] LABS: ABG PCO2 10 mmHg (38-42); ABG PO2 107 mmHg (61-120)
[2018-05-13] MEDS ORDERED: Insulin Regular (For Infusion) 100 UNIT in Sodium Chlor 0.9% Inj 99 ML IV.CONT PRN (10:51)
[2018-05-13] MEDS ORDERED: Sodium Bicarbonate 8.4% Inj 50 MEQ/50 ML Syringe ONE (10:53)
[2018-05-13 11:16] LABS: Baso # (Auto) 0.1 th/mm3 (0.0-0.2); Baso % (Auto) 0.4 % (0.0-2.0); Hematocrit 47.9 % (35.0-46.0); Hemoglobin 15.2 gm/dL (11.6-15.3); Lymph # (Auto) 1.3 th/mm3 (1.0-4.8); Lymph % (Auto) 5.4 % (9.0-44.0); Mean Corpuscular HGB Conc 31.7 % (32.0-36.0); Mean Corpuscular Hemoglobin 29.7 pg (27.0-34.0); Mean Corpuscular Volume 93.7 fL (80.0-100.0); Mean Platelet Volume 8.5 fL (7.0-11.0); Neut # (Auto) 21.4 th/mm3 (1.8-7.7); Neut % (Auto) 86.2 % (16.0-70.0); Platelet Count 403 th/mm3 (150-450); Red Blood Count 5.11 mil/mm3 (4.00-5.30); Red Cell Distribution Width 16.6 % (11.6-17.2); White Blood Count 24.9 th/mm3 (4.0-11.0)
[2018-05-13] MEDS ORDERED: Piperacil/Tazo 4.5 GM Premix 4.5 GM/100 ML BAG IV.SIG STA (11:27)
--- NOTE | 2018-05-13 11:33 | P.CONCC ---
History of Present Illness Service: Critical Care Medicine Consult date: 05/13/18 Requesting Physician: Mikey Paniagua Reason for Consult: severe acidosis Primary Care Provider: Ghada Vaughn MD Family Provider: Ghada Vaughn MD History of Present Illness: 57yF who presents by rapid response for acute altered mentation. per chart review, she had a gastric sleeve in 02/2018 and has had recent dysphagia. gastrographin swallow demonstrated delayed movement of contrast through the gastric sleeve, but EGD did not demonstrate any strictures. She was admitted with an anion gap of 21 and given iv fluids. she has a history of diabetes and has been npo with glucose of 285 mg/dL on my evaluation. Per nursing report, she never returned back to neurologic baseline after anesthesia for EGD. this morning, ABG was ordered with was 6.9/10/137 with BE -28 and a calculated bicarb of 2. She arrives in acute distress. ROS unobtainable due to mental status. emergently given 4L LR and 1 amp bicarb. CXR and KUB did not demonstrate free air. no additional information is available from the patient. Review of Systems unobtainable due to mental status PMFSH - History History Provided By: Medical Record - Medical History Medical History: Medical History (Last Reviewed 05/13/18 @ 11:23 by Pa Maynard MD) Diabetes High cholesterol Hx of fracture of patella Hypertension Obesity Pain, joint, knee, left Pain, joint, knee, right - Surgical History Surgical History: Surgical History (Last Reviewed 05/13/18 @ 11:23 by Pa Maynard MD) History of History of cervical discectomy History of renal stent Hx of cataract removal with insertion of prosthetic lens Hx of cholecystectomy Hx of tonsillectomy - Family History Family History: Family History (Last Updated 05/13/18 @ 11:23 by Pa Maynard MD) Other Family history non-contributory - Social History I have reviewed the patient's Social History: Yes - Tobacco History Second Hand Smoke Exposure: No Smoking Status: Former smoker - Alcohol History How Often Do You Have a Drink Containing Alcohol: Monthly or less - Substance Use History Substance History: No History of Abuse - Travel History Recent Travel in the [place] Within the Last 8 Weeks: No Recent Travel Out of the Country Within the Last 8 Weeks: No - Immunization History Tetanus Immunization: >5 Years Hx Influenza Vaccine This Season: No Medications and Allergies Active Medications: Active Medications Dextrose (D50w Vial) 50 ml IV.PUSH UNSCH PRN PRN Reason: PER HYPOGLYCEMIA PROTOCOL Dextrose (D50w Vial) 50 ml IV.PUSH UNSCH PRN PRN Reason: PER HYPOGLYCEMIA PROTOCOL Glucagon (Glucagon Inj) 1 mg OTHER PRN PRN PRN Reason: for Hypoglycemia Protocol Pantoprazole Sodium 80 mg/ (Sodium Chloride) 100 mls @ 10 mls/hr IV.CONT CONT ELIZABETH Last Infusion: 05/13/18 02:23 Dose: 10 mls/hr Sodium Chloride (Ns Inj) 1,000 mls @ 125 mls/hr IV.CONT .Q8H ELIZABETH Last Admin: 05/13/18 04:40 Dose: 125 mls/hr Lactated Ringer's (Lr 1000 Ml Inj) 2,000 mls @ 0 mls/hr IV.SIG BOLUS ONE Stop: 05/13/18 10:50 Insulin Human Regular 100 unit (/ Sodium Chloride) 100 mls @ 0 mls/hr IV.CONT TITRATE PRN; Protocol PRN Reason: See protocol Piperacillin/Tazobactam/Dextrose (Zosyn 4.5 Gm Premix) 4.5 gm in 100 mls @ 200 mls/hr IV.SIG ONCE STA Stop: 05/13/18 11:43 Insulin Aspart (Novolog Insulin Correctional Sugar Inj) 0 unit SQ ACHS [facility]; Protocol Last Admin: 05/13/18 09:06 Dose: 5 unit Miscellaneous Information ([facility] Nursing Information) 1 each OTHER UNSCH PRN PRN Reason: SEE LABEL COMMENTS Stop: 05/13/18 17:32 Morphine Sulfate (Morphine Inj) 2 mg IV.PUSH Q4H PRN PRN Reason: PAIN SCALE 1 TO 5 Ondansetron HCl (Zofran Inj) 4 mg IV.PUSH Q6H PRN PRN Reason: NAUSEA Last Admin: 05/12/18 19:52 Dose: 4 mg Oxycodone/Acetaminophen (Percocet 5/325 Mg) 1 tab PO Q4H PRN PRN Reason: PAIN SCALE 1 TO 5 Last Admin: 05/13/18 02:14 Dose: 1 tab Promethazine HCl (Phenergan) 25 mg PO Q4H PRN PRN Reason: VOMITING Sodium Chloride (Ns Flush) 2 ml IV.FLUSH BID [facility] Last Admin: 05/13/18 09:07 Dose: Not Given Sodium Chloride (Ns Flush) 2 ml IV.FLUSH UNSCH PRN PRN Reason: FLUSH AFTER USING IV ACCESS Allergies Allergy/AdvReac Type Severity Reaction Status Date / Time epinephrine Allergy Severe HEART Verified 05/12/18 03:35 RACES SVT Home Medications Medication Instructions Recorded Confirmed Type pantoprazole 40 mg PO DAILY 03/03/18 05/12/18 History pravastatin 40 mg PO DAILY 03/03/18 05/12/18 History verapamil 240 mg PO QAM 03/03/18 05/12/18 History empagliflozin [Jardiance] 25 mg PO DAILY 05/12/18 05/12/18 History Physical Exam Vital signs: Vital Signs 05/12/18 12:00 05/12/18 16:00 05/12/18 17:20 Temperature 36.6 C 36.7 C 36.6 C Pulse Rate 85 97 H 129 H Respiratory Rate 16 16 22 Blood Pressure 140/64 154/72 H 166/76 H Pulse Oximetry 97 97 100 05/12/18 17:30 05/12/18 17:45 05/12/18 18:00 Temperature 36.4 C L Pulse Rate 116 H 109 H 105 H Respiratory Rate 22 25 H 22 Blood Pressure 138/56 L 131/62 131/60 Pulse Oximetry 99 100 100 05/12/18 20:00 05/13/18 00:20 05/13/18 02:47 Temperature 36.5 C 36.3 C L Pulse Rate 75 115 H Respiratory Rate 21 20 18 Blood Pressure 157/75 H 146/71 H Pulse Oximetry 97 97 05/13/18 08:10 Temperature 36.4 C L Pulse Rate 126 H Respiratory Rate 20 Blood Pressure 143/80 H Pulse Oximetry 74 L Intake & Output 05/12/18 05/13/18 05/13/18 18:59 06:59 18:59 Intake Total 1999 Balance 1999 Intake: IV 1999 Protonix Inj 80 MG In NS Inj 0 / 0 0 / 0 100 ML @ 10 mls/hr IV.CONT CONT ELIZABETH Rx#:[id number] NS Inj 1,000 ML @ 125 mls/hr IV 1999 .CONT .Q8H [facility] Rx#:[id number] NS Inj 1,000 ML @ Wide Open IV. 1999 SIG BOLUS ELIZABETH Rx#:[id number] Oral 60 / 60 Other: # Voids 2 Narrative: gen: middle-aged female in acute distress, altered, tachypneic. heent: nc. at. perrl. mucous membranes very dry. neck: no jvd. trachea midline. chest: nc o2. kussmaul respirations. using accessory muscles to breath. tachypneic. in distress. clear to auscultation. cv: tachycardic rate in the 130s, regular rhythm. sinus. sbp 150s. abd: soft, mildly distended, nontender, no guarding or rebound. extr: no edema. very poor skin turger. distal pulses 1+. delayed cap refill. neuro: RASS -3. arouses to loud voice. follows commands weakly. Septic Shock Reassessment Septic shock perfusion: reassessment completed Assessment and Plan - Assessment and Plan Plan: Assessment: 57yF s/p gastric sleeve in 02/2018 presents with severe life- threatening anion-gap metabolic acidosis, dehydration, diabetic ketoacidosis. critically ill. Neuro: Acute metabolic encephalopathy - likely secondary to metabolic derangements - frequent neuro checks - avoid long-acting sedatives Resp: Kussmaul respirations Respiratory distress Acute hypoxemia - wean o2 by nc for goal spo2 > 90% - serial abg - resp distress secondary to metabolic acidosis - will hold off on intubation for now - stat CXR - stat CT chest CV: Sinus tachycardia - likely secondary to dehydration - may be severe sepsis? - 4L LR bolus - LR mivf Renal: Acute kidney injury - likely secondary to severe dehydration - place jones catheter for q1h i/o's - strict i/o's - LR boluses and mivf - daily bmp FEN/GI: Severe life-threatening anion-gap metabolic acidosis s/p gastric sleeve 02/2018 acute dysphagia Severe dehydration Acute intravascular volume depletion hyperkalemia in the setting of total body potassium depletion - Dr. Paniagua with bariatric surgery updated - NPO - stat cmp, mg, phos, lactate - serial abg - 4L LR Bolus - d5 LR @ 150 cc/hr - trend electrolytes - ICU electrolyte protocol - aggressive K replacement Heme/ID: Possible Aspiration pneumonia Possible Severe Sepsis - given dysphagia, cannot rule out. start empiric zosyn and check blood cultures - urine culture, u/a. Endo: Diabetes DKA - insulin bolus and drip - q1h accuchecks - send urine and serum ketones Prophylaxis: SCDs SQH Lines: piv place jones Dispo: admit to ICU. very critically ill. Critical care time: 79 minutes, exclusive of separately billable procedures. actively managed the patient at bedside while she was in extremis, managing fluids, metabolic derangements, frequent re-evaluations, and multiple discussions with consultants.
--- NOTE | 2018-05-13 11:44 | XR ---
EXAM DATE: 05/13/2018 11:29 AM EDT AGE/SEX: 57 years / Female INDICATIONS: S/P EGD to rule out perforation. CLINICAL DATA: This is the patient's initial encounter. Patient reports that signs and symptoms have been present for 1 day and indicates a pain score of Nonresponsive. MEDICAL/SURGICAL HISTORY: Diabetes mellitus type II. SVT. Gastric bypass. section. Cholecystectomy. C-spine discectomy. COMPARISON: C, CHEST 1V SINGLE AP, 05/12/2018. . FINDINGS: The heart is enlarged. Mild interstitial changes are evident. There is a rounded consolidation, pleur al effusion or pneumothorax. There is no mediastinal air. CONCLUSION: Mild interstitial prominence otherwise negative Electronically signed by: Javier Wright MD 05/13/2018 11:43 AM EDT
--- NOTE | 2018-05-13 11:45 | XR ---
EXAM DATE: 05/13/2018 11:30 AM EDT AGE/SEX: 57 years / Female INDICATIONS: Distention. S/P EGD. CLINICAL DATA: This is the patient's initial encounter. Patient reports that signs and symptoms have been present for 1 day and indicates a pain score of Nonresponsive. MEDICAL/SURGICAL HISTORY: Diabetes. SVT. Gastric bypass. Cholecystectomy. section. C-spine discectomy. COMPARISON: [facility] [place], UPPER GI W GASTROGRAFIN, 05/12/2018. . FINDINGS: Abdomen is relatively gasless. There is no definite free air or obstruction. Portable skeleton visua lized is unremarkable. CONCLUSION: Nonspecific abdomen. Electronically signed by: Javier Wright MD 05/13/2018 11:44 AM EDT
[2018-05-13 11:59] LABS: Alanine Aminotransferase 27 U/L (10-53); Albumin 3.9 g/dL (3.4-5.0); Alkaline Phosphatase 104 U/L (45-117); Anion Gap 23 meq/L (5-15); Aspartate Aminotransferase 31 U/L (15-37); Blood Urea Nitrogen 25 mg/dL (7-18); Calcium 9.3 mg/dL (8.5-10.1); Carbon Dioxide 5.5 meq/L (21.0-32.0); Chloride 124 meq/L (98-107); Glomerular Filtration Rate 32 mL/min (>89); Glucose,Random 295 mg/dL (74-106); Magnesium 2.6 mg/dL (1.5-2.5); Phosphorus 1.9 mg/dL (2.5-4.9); Potassium 5.4 meq/L (3.5-5.1); Sodium 152 meq/L (136-145); Total Protein 8.1 g/dL (6.4-8.2)
[2018-05-13] MEDS: Insulin Regular (For Infusion) 100 UNIT in Sodium Chlor 0.9% Inj 99 ML IV.CONT PRN (12:00)
[2018-05-13] MEDS ORDERED: Sodium Bicarbonate 8.4% Inj 50 MEQ/50 ML Syringe IV.PUSH ONE (12:00)
[2018-05-13 12:07] LABS: Lymphocytes 7 % (9-44); Metamyelocytes 2 % (0-1); Monocytes 11 % (0-8); Platelet Estimate Normal (Normal); Platelet Morphology Normal (Normal); RBC Morphology Normal (Normal)
[2018-05-13 12:08] LABS: Beta Hydroxybutyric Acid 12.81 mmol/L (0.00-0.39)
[2018-05-13] MEDS ORDERED: Potassium Phosphate 500 MG Soluble Tablet PO PRN ×2 (12:08)
[2018-05-13] MEDS ORDERED: Magnesium Sulfate Inj 2 GM in Sodium Chlor 0.9% Inj 96 ML IV.SIG PRN (12:08)
[2018-05-13] MEDS ORDERED: Potassium Chlor 20 mEq Premix 20 MEQ/100 ML PIGGYBACK IV.SIG PRN ×7 (12:08→12:12)
[2018-05-13] MEDS ORDERED: Magnesium Sulfate Inj 4 GM in Sodium Chlor 0.9% Inj 92 ML IV.SIG PRN (12:08)
[2018-05-13] MEDS ORDERED: Magnesium Oxide 400 MG Tablet PO PRN (12:08)
[2018-05-13] MEDS ORDERED: Potassium Chloride 25 MEQ Effervescent Tablet PO PRN (12:08)
[2018-05-13] MEDS ORDERED: Sodium Phosphate Inj 30 MMOL in Sodium Chlor 0.9% Inj 250 ML IV.SIG PRN (12:08)
[2018-05-13] MEDS ORDERED: Potassium Phosphate Inj 30 MMOL in Sodium Chlor 0.9% Inj 250 ML IV.SIG PRN (12:08)
[2018-05-13] MEDS ORDERED: Potassium Chlor 40 mEq Premix 40 MEQ/100 ML PIGGYBACK IV.SIG PRN ×4 (12:08→12:12)
[2018-05-13] MEDS ORDERED: Sodium Phosphate Inj 15 MMOL in Sodium Chlor 0.9% Inj 100 ML IV.SIG PRN (12:12)
[2018-05-13] MEDS: Dextrose 5%/Lactated Ringer's 1,000 ML IV.CONT SCH ×2 (12:13→17:31)
[2018-05-13 12:33] LABS: ABG Base Excess -21.7 mmol/L (-2-2); ABG PCO2 15 mmHg (38-42); ABG PO2 108 mmHG (61-120)
[2018-05-13 12:36] LABS: VBG Base Excess -21.5 mmol/L (-2-2); VBG Blood Gas Oxygen Content 15.1 Vol % (9.0-17.0); VBG PCO2 17 mmHG (44-48); VBG PH 7.16 (7.360-7.400); VBG PO2 38 mmHG (35-40)
--- NOTE | 2018-05-13 13:07 | P.PNGS ---
Subjective Interval history: Pt lethargic mornings events noted Physical Exam Vital signs: Vital Signs 05/12/18 16:00 05/12/18 17:20 05/12/18 17:30 Temperature 98.0 F 98 F Pulse Rate 97 H 129 H 116 H Respiratory Rate 16 22 22 Blood Pressure 154/72 H 166/76 H 138/56 L Pulse Oximetry 97 100 99 05/12/18 17:45 05/12/18 18:00 05/12/18 20:00 Temperature 97.5 F L 97.7 F Pulse Rate 109 H 105 H 75 Respiratory Rate 25 H 22 21 Blood Pressure 131/62 131/60 157/75 H Pulse Oximetry 100 100 97 05/13/18 00:20 05/13/18 02:47 05/13/18 08:10 Temperature 97.4 F L 97.5 F L Pulse Rate 115 H 126 H Respiratory Rate 20 18 20 Blood Pressure 146/71 H 143/80 H Pulse Oximetry 97 74 L Intake & Output 05/12/18 05/13/18 05/13/18 18:59 06:59 18:59 Intake Total 1999 3200 / 3200 Balance 1999 3200 / 3200 Intake: IV 1999 3200 / 3200 Protonix Inj 80 MG In NS Inj 0 / 0 0 / 0 100 / 100 100 ML @ 10 mls/hr IV.CONT CONT ELIZABETH Rx#:[id number] NS Inj 1,000 ML @ 125 mls/hr IV 1999 1000 / 1000 .CONT .Q8H ELIZABETH Rx#:[id number] LR 1000 mL Inj 2,000 ML @ Wide 1999 Open IV.SIG BOLUS ONE Rx#: [id number] Zosyn 4.5 GM Premix 4.5 gm In 100 / 100 100 ml @ 200 mls/hr IV.SIG ONCE STA Rx#:[id number] NS Inj 1,000 ML @ Wide Open IV. 1999 SIG BOLUS ELIZABETH Rx#:[id number] Oral 60 / 60 Other: # Voids 2 - Constitutional somnolent - Routine HEENT Exam Head: Present: normocephalic - Routine Cardiovascular Exam Present: tachycardia - Routine Abdominal Exam Present: soft, tenderness Results - Labs 05/13/18 10:51 05/13/18 10:51 Laboratory Results - last 24 hr 05/12/18 05/12/18 05/13/18 13:37 17:46 02:10 WBC RBC Hgb Hct MCV MCH MCHC RDW Plt Count MPV Prelim Diff (Auto) Neut % (Auto) Lymph % (Auto) [place] % (Auto) Eos % (Auto) Baso % (Auto) Neut # (Auto) Lymph # (Auto) [place] # (Auto) Eos # (Auto) Baso # (Auto) WBC Differential Seg Neuts % (Manual) Band Neuts % (Manual) Lymphocytes % (Manual) Monocytes % (Manual) Metamyelocytes % (Man) Abs Neuts (Manual) Differential Comment Platelet Estimate Platelet Morphology RBC Morphology Puncture Site Patient Temperature O2 Saturation ABG pH ABG pCO2 ABG pO2 ABG HCO3 ABG O2 Content ABG Base Excess ABG Methemoglobin Sheldon Test VBG pH VBG pCO2 VBG pO2 VBG HCO3 VBG O2 Saturation VBG O2 Content VBG Base Excess VBG Carboxyhemoglobin VBG Methemoglobin Hemoglobin Carboxyhemoglobin O2 Delivery Device Inspired O2 Critical Value Sodium Potassium Chloride Carbon Dioxide Anion Gap BUN Creatinine Estimated GFR POC Glucose 159 H 159 H 317 H Random Glucose Lactic Acid Calcium Phosphorus Magnesium Total Bilirubin AST ALT Alkaline Phosphatase Total Protein Albumin Beta-Hydroxybutyric Acd 05/13/18 05/13/18 05/13/18 08:11 10:34 10:51 WBC 24.9 H RBC 5.11 Hgb 15.2 Hct 47.9 H MCV 93.7 D MCH 29.7 MCHC 31.7 L RDW 16.6 Plt Count 403 MPV 8.5 Prelim Diff (Auto) Slide review pending Neut % (Auto) 86.2 H Lymph % (Auto) 5.4 L [place] % (Auto) 8.0 Eos % (Auto) 0.0 Baso % (Auto) 0.4 Neut # (Auto) 21.4 H Lymph # (Auto) 1.3 [place] # (Auto) 2.0 H Eos # (Auto) 0.0 Baso # (Auto) 0.1 WBC Differential Manual diff final Seg Neuts % (Manual) 76 H Band Neuts % (Manual) 4 Lymphocytes % (Manual) 7 L Monocytes % (Manual) 11 H Metamyelocytes % (Man) 2 H Abs Neuts (Manual) 20.4 H Differential Comment . Platelet Estimate Normal Platelet Morphology Normal RBC Morphology Normal Puncture Site Left radial Patient Temperature 98.6 O2 Saturation 95 ABG pH 6.94 L* ABG pCO2 10 L* ABG pO2 107 ABG HCO3 2 L* ABG O2 Content 21.6 H ABG Base Excess -28.1 L ABG Methemoglobin 1.0 Sheldon Test Y VBG pH VBG pCO2 VBG pO2 VBG HCO3 VBG O2 Saturation VBG O2 Content VBG Base Excess VBG Carboxyhemoglobin VBG Methemoglobin Hemoglobin 16.0 Carboxyhemoglobin 1.8 O2 Delivery Device Room air Inspired O2 21 Critical Value Yes Sodium Potassium Chloride Carbon Dioxide Anion Gap BUN Creatinine Estimated GFR POC Glucose 299 H Random Glucose Lactic Acid Calcium Phosphorus Magnesium Total Bilirubin AST ALT Alkaline Phosphatase Total Protein Albumin Beta-Hydroxybutyric Acd 05/13/18 05/13/18 05/13/18 10:51 10:51 10:51 WBC RBC Hgb Hct MCV MCH MCHC RDW Plt Count MPV Prelim Diff (Auto) Neut % (Auto) Lymph % (Auto) [place] % (Auto) Eos % (Auto) Baso % (Auto) Neut # (Auto) Lymph # (Auto) [place] # (Auto) Eos # (Auto) Baso # (Auto) WBC Differential Seg Neuts % (Manual) Band Neuts % (Manual) Lymphocytes % (Manual) Monocytes % (Manual) Metamyelocytes % (Man) Abs Neuts (Manual) Differential Comment Platelet Estimate Platelet Morphology RBC Morphology Puncture Site Patient Temperature O2 Saturation ABG pH ABG pCO2 ABG pO2 ABG HCO3 ABG O2 Content ABG Base Excess ABG Methemoglobin Sheld[place] Test VBG pH VBG pCO2 VBG pO2 VBG HCO3 VBG O2 Saturation VBG O2 Content VBG Base Excess VBG Carboxyhemoglobin VBG Methemoglobin Hemoglobin Carboxyhemoglobin O2 Delivery Device Inspired O2 Critical Value Sodium 152 H D Potassium 5.4 H D Chloride 124 H D Carbon Dioxide 5.5 L Anion Gap 23 H BUN 25 H Creatinine 1.65 H Estimated GFR 32 L POC Glucose Random Glucose 295 H D Lactic Acid 1.1 Calcium 9.3 Phosphorus 1.9 L Magnesium 2.6 H Total Bilirubin 0.6 AST 31 ALT 27 Alkaline Phosphatase 104 Total Protein 8.1 D Albumin 3.9 D Beta-Hydroxybutyric Acd 12.81 H Cancelled 05/13/18 05/13/18 05/13/18 10:58 12:00 12:18 WBC RBC Hgb Hct MCV MCH MCHC RDW Plt Count MPV Prelim Diff (Auto) Neut % (Auto) Lymph % (Auto) [place] % (Auto) Eos % (Auto) Baso % (Auto) Neut # (Auto) Lymph # (Auto) [place] # (Auto) Eos # (Auto) Baso # (Auto) WBC Differential Seg Neuts % (Manual) Band Neuts % (Manual) Lymphocytes % (Manual) Monocytes % (Manual) Metamyelocytes % (Man) Abs Neuts (Manual) Differential Comment Platelet Estimate Platelet Morphology RBC Morphology Puncture Site Iv Patient Temperature 98.6 O2 Saturation ABG pH ABG pCO2 ABG pO2 ABG HCO3 ABG O2 Content ABG Base Excess ABG Methemoglobin Sheldon Test VBG pH 7.16 L* VBG pCO2 17 L* VBG pO2 38 VBG HCO3 6 L* VBG O2 Saturation 79 H VBG O2 Content 15.1 VBG Base Excess -21.5 L VBG Carboxyhemoglobin 1.4 VBG Methemoglobin 1.7 Hemoglobin 13.6 Carboxyhemoglobin O2 Delivery Device Ra Inspired O2 Critical Value Yes Sodium Potassium Chloride Carbon Dioxide Anion Gap BUN Creatinine Estimated GFR POC Glucose 285 H 236 H Random Glucose Lactic Acid Calcium Phosphorus Magnesium Total Bilirubin AST ALT Alkaline Phosphatase Total Protein Albumin Beta-Hydroxybutyric Acd 05/13/18 12:19 WBC RBC Hgb Hct MCV MCH MCHC RDW Plt Count MPV Prelim Diff (Auto) Neut % (Auto) Lymph % (Auto) [place] % (Auto) Eos % (Auto) Baso % (Auto) Neut # (Auto) Lymph # (Auto) [place] # (Auto) Eos # (Auto) Baso # (Auto) WBC Differential Seg Neuts % (Manual) Band Neuts % (Manual) Lymphocytes % (Manual) Monocytes % (Manual) Metamyelocytes % (Man) Abs Neuts (Manual) Differential Comment Platelet Estimate Platelet Morphology RBC Morphology Puncture Site Left radial Patient Temperature 98.6 O2 Saturation 95 ABG pH 7.18 L* ABG pCO2 15 L* ABG pO2 108 ABG HCO3 6 L* ABG O2 Content 18.3 ABG Base Excess -21.7 L ABG Methemoglobin 1.6 [place] Test VBG pH VBG pCO2 VBG pO2 VBG HCO3 VBG O2 Saturation VBG O2 Content VBG Base Excess VBG Carboxyhemoglobin VBG Methemoglobin Hemoglobin 13.6 Carboxyhemoglobin 1.5 O2 Delivery Device Ra Inspired O2 Critical Value Yes Sodium Potassium Chloride Carbon Dioxide Anion Gap BUN Creatinine Estimated GFR POC Glucose Random Glucose Lactic Acid Calcium Phosphorus Magnesium Total Bilirubin AST ALT Alkaline Phosphatase Total Protein Albumin Beta-Hydroxybutyric Acd - Imaging Imaging: ITS Impressions Gastrografin Study 05/12/18 05:51 CONCLUSION: Initial films have suggested obstruction of the sleeve. The sleeve is not obstructed but poorly empties even in the upright position. Abdomen X-Ray 05/13/18 00:00 CONCLUSION: Nonspecific abdomen. Chest X-Ray 05/13/18 10:48 CONCLUSION: Mild interstitial prominence otherwise negative Assessment and Plan - Assessment (1) Acidosis, metabolic Code(s): E87.2 - Acidosis Status: Acute (2) Dysphagia Code(s): R13.10 - Dysphagia, unspecified Status: Acute (3) Nausea & vomiting Code(s): R11.2 - Nausea with vomiting, unspecified Status: Acute - Plan Pt being hydrated insulin drip started cont PPI Ct chest abdomen and pelvis (2) Dysphagia Qualifiers: Dysphagia type: unspecified Qualified Code(s): R13.10 - Dysphagia, unspecified
--- NOTE | 2018-05-13 13:22 | MH ---
cc: Chip Trotter MD DATE OF ADMISSION: 05/12/2018 HISTORY: This is a patient who is known to me, had a laparoscopic vertical sleeve gastrectomy on 03/06/2018. The patient was doing well until approximately 3 days prior, when she began having difficulties with eating. She states that whenever she eats, she would vomit. She denies any change in bowel habits. She does have pain in her chest from vomiting. No shortness of breath. PAST MEDICAL HISTORY: Significant for obesity, hypercholesterolemia, hypertension, type 2 diabetes. PAST SURGICAL HISTORY: Significant for , diskectomy, renal stent placement, cholecystectomy. SOCIAL HISTORY: The patient does not smoke, does not drink alcohol. MEDICATIONS: Can be obtained from the medical record. REVIEW OF SYSTEMS: Significant for above. PHYSICAL EXAMINATION: GENERAL: The patient is lying in bed in no acute distress. HEENT: Her pupils are equal and reactive. NECK: Trachea is midline. LUNGS: Respirations clear. CARDIOVASCULAR: Regular. GASTROINTESTINAL: Soft, flat, nontender. MUSCULOSKELETAL: No deformities. NEUROLOGICAL: Nonfocal. RADIOLOGIC IMAGES: Chest x-ray performed. No acute disease. Gastrografin upper GI reveals nonobstruction of the sleeve, poor emptying. ASSESSMENT: This is a patient with emesis, questionably obstruction. The patient will obtain a GI evaluation with endoscopy. Will continue IV hydration, n.p.o. Further recommendations pending results of her upper endoscopy. MD LAYLA Hatfield/gary , 12:59 PM , 01:09 PM
--- NOTE | 2018-05-13 14:00 | CT ---
EXAM DATE: 05/13/2018 1:56 PM EDT AGE/SEX: 57 years / Female INDICATIONS: Severe acidosis post gastric bypass. CLINICAL DATA: This is the patient's initial encounter. Patient reports that signs and symptoms have been present for 1 day and indicates a pain score of 5/10. MEDICAL/SURGICAL HISTORY: Diabetes. Hypertension. Gastric bypass. Cholecystectomy. Renal stent. RADIATION DOSE: 6.80 CTDI (mGy) ; Combined studies COMPARISON: [facility], CHEST 1V SINGLE AP, 05/13/2018. . TECHNIQUE: Multiple contiguous axial images were obtained through the chest during bolus infusion of 50 ml Visipaque 320 (iodixanol) nonionic water-soluble contrast as a cumulative dose for multiple e xams. Images were obtained in suspended respiration using multiple row detector helical technique. Using automated exposure control and adjustment of the mA and/or kV according to patient size, radia tion dose was kept as low as reasonably achievable to obtain optimal diagnostic quality images. DICO M format image data is available electronically for review and comparison. FINDINGS: Mild dependent atelectatic changes are seen. No pleural effusions are identified. No adenopathy. Smal l pericardial effusion. There is a staple line along the greater curvature of the stomach. The osseou s structures are intact. CONCLUSION: 1. Small pericardial effusion and mild dependent atelectasis. 2. Otherwise unremarkable. Electronically signed by: Ricardo Key MD 05/13/2018 1:59 PM EDT
--- NOTE | 2018-05-13 14:02 | CT ---
EXAM DATE: 05/13/2018 1:57 PM EDT AGE/SEX: 57 years / Female INDICATIONS: Severe acidosis post gastric bypass. CLINICAL DATA: This is the patient's initial encounter. Patient reports that signs and symptoms have been present for 1 day and indicates a pain score of 5/10. MEDICAL/SURGICAL HISTORY: Diabetes. Hypertension. Gastric bypass. Cholecystectomy. Renal sten t. ORAL CONTRAST: No oral contrast ingested. RADIATION DOSE: 6.80 CTDI (mGy) ; Combined studies COMPARISON: [facility], UPPER GI W GASTROGRAFIN, 05/12/2018. [facility] [place], CT CHEST W CONTRAST, 05/13/2018. [facility] [place], ABDOMEN 1V KUB, 05/13/2018. . TECHNIQUE: Multiple contiguous axial images were obtained through the abdomen and pelvis following b olus infusion of 50 ml Visipaque 320 (iodixanol) nonionic water-soluble contrast as a cumulative do se for multiple exams. No oral contrast ingested. Using automated exposure control and adjustment of the mA and/or kV according to patient size, radiation dose was kept as low as reasonably achievable to obtain optimal diagnostic quality images. DICOM format image data is available electronically for review and comparison. FINDINGS: There is trace pericardial fluid. Spleen, pancreas, adrenal glands are unremarkable. Patient has had a gastric sleeve procedure with the staple line along the stomach. There is a Vargas catheter in the u rinary bladder. Uterus unremarkable. No evidence of bowel obstruction, free fluid or free air. Append ix normal. There is a fat-containing infraumbilical ventral hernia measuring 2.4 cm. There is no martín opathy or aneurysm. Dependent atelectatic changes are seen. CONCLUSION: 1. No acute findings. Electronically signed by: Ricardo Key MD 05/13/2018 2:01 PM EDT
[2018-05-13 14:13] LABS: Amorphous Sediment,Urine Occasional /hpf; Bacteria,Urine Few /hpf; Bilirubin,Urine Negative (Negative); Clarity,Urine Hazy (Clear); Color,Urine Yellow (Yellw/Straw); Glucose,Urine (UA) 500 or Greater mg/dL (Negative); Leukocyte Esterase,Urine Negative (Negative); Mucus,Urine Few /lpf (Occasional); Nitrite,Urine Negative (Negative); Specific Gravity,Urine 1.018 (1.002-1.035); Squamous Epithelial Cell,Urine 1 /hpf (0-5)
[2018-05-13] MEDS: Piperacil/Tazo 4.5 GM Premix 4.5 GM/100 ML BAG IV.SIG SCH (17:31)
[2018-05-13 18:30] LABS: Phosphorus 0.4 mg/dL (2.5-4.9); Potassium 3.6 meq/L (3.5-5.1)
--- NOTE | 2018-05-13 22:12 | P.PNGI ---
Subjective Interval history: Patient lethargic in bed she was just recently transferred to the ICU due to lethargy and acidosis Physical Exam Vital signs: Vital Signs 05/13/18 00:20 05/13/18 02:47 05/13/18 08:10 Temperature 97.4 F L 97.5 F L Pulse Rate 115 H 126 H Respiratory Rate 20 18 20 Blood Pressure 146/71 H 143/80 H Pulse Oximetry 97 74 L 05/13/18 10:20 05/13/18 12:00 05/13/18 16:49 Temperature 96.5 F L Pulse Rate 125 H 124 H Respiratory Rate 36 H 43 H Blood Pressure 137/71 151/80 H Pulse Oximetry 89 L 96 Intake & Output 05/13/18 05/13/18 05/14/18 06:59 18:59 06:59 Intake Total 2059 / 2059 4300 / 4300 Output Total 3400 / 3400 Balance 2059 / 2059 900 / 900 Intake: IV 1999 4300 / 4300 D5W/LR Inj 1,000 ML @ 150 mls/ 1000 / 1000 hr IV.CONT .Q6H40M [facility] Rx#: [id number] Protonix Inj 80 MG In NS Inj 0 / 0 100 / 100 100 ML @ 10 mls/hr IV.CONT CONT [facility] Rx#:[id number] NS Inj 1,000 ML @ 125 mls/hr IV 1999 / 1999 1000 / 1000 .CONT .Q8H [facility] Rx#:[id number] LR 1000 mL Inj 2,000 ML @ Wide 1999 / 1999 Open IV.SIG BOLUS ONE Rx#: [id number] Zosyn 4.5 GM Premix 4.5 gm In 200 / 200 100 ml @ 200 mls/hr IV.SIG Q6H [facility] Rx#:[id number] Oral 60 / 60 0 / 0 Output: Urine Amount (Catheter) 3400 / 3400 Indwelling Urethral Catheter 3400 / 3400 Other: # Voids 2 - Constitutional mild distress - Routine HEENT Exam Head: Present: normocephalic Eye: Present: EOMI - Routine Neck Exam Present: supple - Routine Respiratory Exam Present: accessory muscle use - Routine Cardiovascular Exam Present: RRR, S1, S2 - Routine Abdominal Exam Present: soft, normoactive bowel sounds. Absent: tenderness, distended - Routine Extremities Exam Absent: cyanosis, clubbing, edema - Urinary Catheter Management Indwelling Urethral Catheter Cath placed during this visit: yes Reason for continuing: Acute urinary retention Insertion date: 05/13/18 Insertion time: 14:35 Results - Labs CBC & Chem 7: 05/13/18 10:51 05/13/18 17:27 Laboratory Results - last 24 hr 05/13/18 05/13/18 05/13/18 02:10 08:11 10:34 WBC RBC Hgb Hct MCV MCH MCHC RDW Plt Count MPV Prelim Diff (Auto) Neut % (Auto) Lymph % (Auto) [place] % (Auto) Eos % (Auto) Baso % (Auto) Neut # (Auto) Lymph # (Auto) [place] # (Auto) Eos # (Auto) Baso # (Auto) WBC Differential Seg Neuts % (Manual) Band Neuts % (Manual) Lymphocytes % (Manual) Monocytes % (Manual) Metamyelocytes % (Man) Abs Neuts (Manual) Differential Comment Platelet Estimate Platelet Morphology RBC Morphology Puncture Site Left radial Patient Temperature 98.6 O2 Saturation 95 ABG pH 6.94 L* ABG pCO2 10 L* ABG pO2 107 ABG HCO3 2 L* ABG O2 Content 21.6 H ABG Base Excess -28.1 L ABG Methemoglobin 1.0 Sheldon Test Y VBG pH VBG pCO2 VBG pO2 VBG HCO3 VBG O2 Saturation VBG O2 Content VBG Base Excess VBG Carboxyhemoglobin VBG Methemoglobin Hemoglobin 16.0 Carboxyhemoglobin 1.8 O2 Delivery Device Room air Inspired O2 21 Critical Value Yes Sodium Potassium Chloride Carbon Dioxide Anion Gap BUN Creatinine Estimated GFR POC Glucose 317 H 299 H Random Glucose Lactic Acid Calcium Phosphorus Magnesium Total Bilirubin AST ALT Alkaline Phosphatase Total Protein Albumin Beta-Hydroxybutyric Acd Urine Color Urine Clarity Urine pH Ur Specific [place] Urine Protein Urine Glucose (UA) Urine Ketones Urine Occult Blood Urine Nitrate Urine Bilirubin Urine Urobilinogen Ur Leukocyte Esterase Urine RBC Urine WBC Ur Squamous Epith Cells Amorphous Sediment Urine Bacteria Granular Casts Urine Mucus Micro UA Comment Ur Microscopic Review Urine Culture Comments 05/13/18 05/13/18 05/13/18 10:51 10:51 10:51 WBC 24.9 H RBC 5.11 Hgb 15.2 Hct 47.9 H MCV 93.7 D MCH 29.7 MCHC 31.7 L RDW 16.6 Plt Count 403 MPV 8.5 Prelim Diff (Auto) Slide review pending Neut % (Auto) 86.2 H Lymph % (Auto) 5.4 L [place] % (Auto) 8.0 Eos % (Auto) 0.0 Baso % (Auto) 0.4 Neut # (Auto) 21.4 H Lymph # (Auto) 1.3 [place] # (Auto) 2.0 H Eos # (Auto) 0.0 Baso # (Auto) 0.1 WBC Differential Manual diff final Seg Neuts % (Manual) 76 H Band Neuts % (Manual) 4 Lymphocytes % (Manual) 7 L Monocytes % (Manual) 11 H Metamyelocytes % (Man) 2 H Abs Neuts (Manual) 20.4 H Differential Comment . Platelet Estimate Normal Platelet Morphology Normal RBC Morphology Normal Puncture Site Patient Temperature O2 Saturation ABG pH ABG pCO2 ABG pO2 ABG HCO3 ABG O2 Content ABG Base Excess ABG Methemoglobin Sheldon Test VBG pH VBG pCO2 VBG pO2 VBG HCO3 VBG O2 Saturation VBG O2 Content VBG Base Excess VBG Carboxyhemoglobin VBG Methemoglobin Hemoglobin Carboxyhemoglobin O2 Delivery Device Inspired O2 Critical Value Sodium 152 H D Potassium 5.4 H D Chloride 124 H D Carbon Dioxide 5.5 L Anion Gap 23 H BUN 25 H Creatinine 1.65 H Estimated GFR 32 L POC Glucose Random Glucose 295 H D Lactic Acid 1.1 Calcium 9.3 Phosphorus 1.9 L Magnesium 2.6 H Total Bilirubin 0.6 AST 31 ALT 27 Alkaline Phosphatase 104 Total Protein 8.1 D Albumin 3.9 D Beta-Hydroxybutyric Acd 12.81 H Urine Color Urine Clarity Urine pH Ur Specific [place] Urine Protein Urine Glucose (UA) Urine Ketones Urine Occult Blood Urine Nitrate Urine Bilirubin Urine Urobilinogen Ur Leukocyte Esterase Urine RBC Urine WBC Ur Squamous Epith Cells Amorphous Sediment Urine Bacteria Granular Casts Urine Mucus Micro UA Comment Ur Microscopic Review Urine Culture Comments 05/13/18 05/13/18 05/13/18 10:51 10:58 11:30 WBC RBC Hgb Hct MCV MCH MCHC RDW Plt Count MPV Prelim Diff (Auto) Neut % (Auto) Lymph % (Auto) [place] % (Auto) Eos % (Auto) Baso % (Auto) Neut # (Auto) Lymph # (Auto) [place] # (Auto) Eos # (Auto) Baso # (Auto) WBC Differential Seg Neuts % (Manual) Band Neuts % (Manual) Lymphocytes % (Manual) Monocytes % (Manual) Metamyelocytes % (Man) Abs Neuts (Manual) Differential Comment Platelet Estimate Platelet Morphology RBC Morphology Puncture Site Patient Temperature O2 Saturation ABG pH ABG pCO2 ABG pO2 ABG HCO3 ABG O2 Content ABG Base Excess ABG Methemoglobin Sheldon Test VBG pH VBG pCO2 VBG pO2 VBG HCO3 VBG O2 Saturation VBG O2 Content VBG Base Excess VBG Carboxyhemoglobin VBG Methemoglobin Hemoglobin Carboxyhemoglobin O2 Delivery Device Inspired O2 Critical Value Sodium Potassium Chloride Carbon Dioxide Anion Gap BUN Creatinine Estimated GFR POC Glucose 285 H Random Glucose Lactic Acid Calcium Phosphorus Magnesium Total Bilirubin AST ALT Alkaline Phosphatase Total Protein Albumin Beta-Hydroxybutyric Acd Cancelled Urine Color Yellow Urine Clarity Hazy H Urine pH 5.0 Ur Specific [place] 1.018 Urine Protein 100 H Urine Glucose (UA) 500 or greater Urine Ketones 80 or greater H Urine Occult Blood Large H Urine Nitrate Negative Urine Bilirubin Negative Urine Urobilinogen Less than 2 Ur Leukocyte Esterase Negative Urine RBC 11 H Urine WBC 4 Ur Squamous Epith Cells 1 Amorphous Sediment Occasional H Urine Bacteria Few H Granular Casts 1 Urine Mucus Few H Micro UA Comment Cath-culture ind Ur Microscopic Review Not Reportable Urine Culture Comments Cath-cult indicated 05/13/18 05/13/18 05/13/18 12:00 12:18 12:19 WBC RBC Hgb Hct MCV MCH MCHC RDW Plt Count MPV Prelim Diff (Auto) Neut % (Auto) Lymph % (Auto) [place] % (Auto) Eos % (Auto) Baso % (Auto) Neut # (Auto) Lymph # (Auto) [place] # (Auto) Eos # (Auto) Baso # (Auto) WBC Differential Seg Neuts % (Manual) Band Neuts % (Manual) Lymphocytes % (Manual) Monocytes % (Manual) Metamyelocytes % (Man) Abs Neuts (Manual) Differential Comment Platelet Estimate Platelet Morphology RBC Morphology Puncture Site Iv Left radial Patient Temperature 98.6 98.6 O2 Saturation 95 ABG pH 7.18 L* ABG pCO2 15 L* ABG pO2 108 ABG HCO3 6 L* ABG O2 Content 18.3 ABG Base Excess -21.7 L ABG Methemoglobin 1.6 Sheldon Test VBG pH 7.16 L* VBG pCO2 17 L* VBG pO2 38 VBG HCO3 6 L* VBG O2 Saturation 79 H VBG O2 Content 15.1 VBG Base Excess -21.5 L VBG Carboxyhemoglobin 1.4 VBG Methemoglobin 1.7 Hemoglobin 13.6 13.6 Carboxyhemoglobin 1.5 O2 Delivery Device Ra Ra Inspired O2 Critical Value Yes Yes Sodium Potassium Chloride Carbon Dioxide Anion Gap BUN Creatinine Estimated GFR POC Glucose 236 H Random Glucose Lactic Acid Calcium Phosphorus Magnesium Total Bilirubin AST ALT Alkaline Phosphatase Total Protein Albumin Beta-Hydroxybutyric Acd Urine Color Urine Clarity Urine pH Ur Specific [place] Urine Protein Urine Glucose (UA) Urine Ketones Urine Occult Blood Urine Nitrate Urine Bilirubin Urine Urobilinogen Ur Leukocyte Esterase Urine RBC Urine WBC Ur Squamous Epith Cells Amorphous Sediment Urine Bacteria Granular Casts Urine Mucus Micro UA Comment Ur Microscopic Review Urine Culture Comments 05/13/18 05/13/18 05/13/18 13:40 15:00 16:21 WBC RBC Hgb Hct MCV MCH MCHC RDW Plt Count MPV Prelim Diff (Auto) Neut % (Auto) Lymph % (Auto) [place] % (Auto) Eos % (Auto) Baso % (Auto) Neut # (Auto) Lymph # (Auto) [place] # (Auto) Eos # (Auto) Baso # (Auto) WBC Differential Seg Neuts % (Manual) Band Neuts % (Manual) Lymphocytes % (Manual) Monocytes % (Manual) Metamyelocytes % (Man) Abs Neuts (Manual) Differential Comment Platelet Estimate Platelet Morphology RBC Morphology Puncture Site Patient Temperature O2 Saturation ABG pH ABG pCO2 ABG pO2 ABG HCO3 ABG O2 Content ABG Base Excess ABG Methemoglobin Sheldon Test VBG pH VBG pCO2 VBG pO2 VBG HCO3 VBG O2 Saturation VBG O2 Content VBG Base Excess VBG Carboxyhemoglobin VBG Methemoglobin Hemoglobin Carboxyhemoglobin O2 Delivery Device Inspired O2 Critical Value Sodium Potassium Chloride Carbon Dioxide Anion Gap BUN Creatinine Estimated GFR POC Glucose 220 H 202 H 147 H Random Glucose Lactic Acid Calcium Phosphorus Magnesium Total Bilirubin AST ALT Alkaline Phosphatase Total Protein Albumin Beta-Hydroxybutyric Acd Urine Color Urine Clarity Urine pH Ur Specific [place] Urine Protein Urine Glucose (UA) Urine Ketones Urine Occult Blood Urine Nitrate Urine Bilirubin Urine Urobilinogen Ur Leukocyte Esterase Urine RBC Urine WBC Ur Squamous Epith Cells Amorphous Sediment Urine Bacteria Granular Casts Urine Mucus Micro UA Comment Ur Microscopic Review Urine Culture Comments 05/13/18 05/13/18 05/13/18 17:15 17:27 18:25 WBC RBC Hgb Hct MCV MCH MCHC RDW Plt Count MPV Prelim Diff (Auto) Neut % (Auto) Lymph % (Auto) [place] % (Auto) Eos % (Auto) Baso % (Auto) Neut # (Auto) Lymph # (Auto) [place] # (Auto) Eos # (Auto) Baso # (Auto) WBC Differential Seg Neuts % (Manual) Band Neuts % (Manual) Lymphocytes % (Manual) Monocytes % (Manual) Metamyelocytes % (Man) Abs Neuts (Manual) Differential Comment Platelet Estimate Platelet Morphology RBC Morphology Puncture Site Patient Temperature O2 Saturation ABG pH ABG pCO2 ABG pO2 ABG HCO3 ABG O2 Content ABG Base Excess ABG Methemoglobin Sheldon Test VBG pH VBG pCO2 VBG pO2 VBG HCO3 VBG O2 Saturation VBG O2 Content VBG Base Excess VBG Carboxyhemoglobin VBG Methemoglobin Hemoglobin Carboxyhemoglobin O2 Delivery Device Inspired O2 Critical Value Sodium 154 H Potassium 3.6 D Chloride 125 H Carbon Dioxide 12.0 L Anion Gap 17 H BUN 20 H Creatinine 1.27 H Estimated GFR 43 L POC Glucose 157 H 136 H Random Glucose 163 H D Lactic Acid Calcium 9.0 Phosphorus 0.4 L D Magnesium 2.0 D Total Bilirubin AST ALT Alkaline Phosphatase Total Protein Albumin Beta-Hydroxybutyric Acd Urine Color Urine Clarity Urine pH Ur Specific [place] Urine Protein Urine Glucose (UA) Urine Ketones Urine Occult Blood Urine Nitrate Urine Bilirubin Urine Urobilinogen Ur Leukocyte Esterase Urine RBC Urine WBC Ur Squamous Epith Cells Amorphous Sediment Urine Bacteria Granular Casts Urine Mucus Micro UA Comment Ur Microscopic Review Urine Culture Comments 05/13/18 05/13/18 05/13/18 19:28 19:59 20:59 WBC RBC Hgb Hct MCV MCH MCHC RDW Plt Count MPV Prelim Diff (Auto) Neut % (Auto) Lymph % (Auto) [place] % (Auto) Eos % (Auto) Baso % (Auto) Neut # (Auto) Lymph # (Auto) [place] # (Auto) Eos # (Auto) Baso # (Auto) WBC Differential Seg Neuts % (Manual) Band Neuts % (Manual) Lymphocytes % (Manual) Monocytes % (Manual) Metamyelocytes % (Man) Abs Neuts (Manual) Differential Comment Platelet Estimate Platelet Morphology RBC Morphology Puncture Site Patient Temperature O2 Saturation ABG pH ABG pCO2 ABG pO2 ABG HCO3 ABG O2 Content ABG Base Excess ABG Methemoglobin Sheldon Test VBG pH VBG pCO2 VBG pO2 VBG HCO3 VBG O2 Saturation VBG O2 Content VBG Base Excess VBG Carboxyhemoglobin VBG Methemoglobin Hemoglobin Carboxyhemoglobin O2 Delivery Device Inspired O2 Critical Value Sodium Potassium Chloride Carbon Dioxide Anion Gap BUN Creatinine Estimated GFR POC Glucose 149 H 167 H 191 H Random Glucose Lactic Acid Calcium Phosphorus Magnesium Total Bilirubin AST ALT Alkaline Phosphatase Total Protein Albumin Beta-Hydroxybutyric Acd Urine Color Urine Clarity Urine pH Ur Specific [place] Urine Protein Urine Glucose (UA) Urine Ketones Urine Occult Blood Urine Nitrate Urine Bilirubin Urine Urobilinogen Ur Leukocyte Esterase Urine RBC Urine WBC Ur Squamous Epith Cells Amorphous Sediment Urine Bacteria Granular Casts Urine Mucus Micro UA Comment Ur Microscopic Review Urine Culture Comments - Imaging Impressions Abdomen X-Ray 05/13/18 00:00 CONCLUSION: Nonspecific abdomen. Chest X-Ray 05/13/18 10:48 CONCLUSION: Mild interstitial prominence otherwise negative Abdomen/Pelvis CT 05/13/18 12:03 CONCLUSION: 1. No acute findings. Chest CT 05/13/18 12:03 CONCLUSION: 1. Small pericardial effusion and mild dependent atelectasis. 2. Otherwise unremarkable. Assessment and Plan (1) Nausea & vomiting Status: Acute Code(s): R11.2 - Nausea with vomiting, unspecified - Plan Patient with nausea and vomiting with a recent history of a gastric sleeve Endoscopy showing Nunez gastritis biopsies pending Agree with current supportive care Recommend aggressive hydration Monitor labs Continue with anti-emetics Low residue diet when patient is able Further recommendations she will depend on her hospital course
[2018-05-13 23:03] LABS: Calcium 9.2 mg/dL (8.5-10.1); Carbon Dioxide 15.1 meq/L (21.0-32.0); Phosphorus 0.3 mg/dL (2.5-4.9); Potassium 3.5 meq/L (3.5-5.1)
[2018-05-14] MEDS: Piperacil/Tazo 4.5 GM Premix 4.5 GM/100 ML BAG IV.SIG SCH ×4 (00:51→18:48)
[2018-05-14] MEDS: Dextrose 5%/Lactated Ringer's 1,000 ML IV.CONT SCH ×2 (00:51→09:51)
[2018-05-14 04:30] LABS: Hemoglobin 13.5 gm/dL (11.6-15.3); Mean Corpuscular HGB Conc 33.7 % (32.0-36.0); Mean Corpuscular Hemoglobin 29.5 pg (27.0-34.0); Mean Corpuscular Volume 87.6 fL (80.0-100.0); Mean Platelet Volume 8.2 fL (7.0-11.0); Platelet Count 258 th/mm3 (150-450); Red Blood Count 4.57 mil/mm3 (4.00-5.30); Red Cell Distribution Width 16.4 % (11.6-17.2); White Blood Count 15.8 th/mm3 (4.0-11.0)
[2018-05-14 05:03] LABS: Calcium 9.1 mg/dL (8.5-10.1); Magnesium 2.2 mg/dL (1.5-2.5); Phosphorus 0.4 mg/dL (2.5-4.9); Potassium 3.3 meq/L (3.5-5.1)
[2018-05-14 05:13] LABS: Beta Hydroxybutyric Acid 5.19 mmol/L (0.00-0.39)
[2018-05-14 05:21] LABS: ABG Base Excess -6.9 mmol/L (-2-2); ABG PCO2 33 mmHg (38-42); ABG PO2 94 mmHG (61-120)
--- NOTE | 2018-05-14 08:01 | P.PNCC ---
Subjective Subjective Remarks/Hospital Course: Hospital Course: 57yF who presents by rapid response for acute altered mentation. per chart review, she had a gastric sleeve in 02/2018 and has had recent dysphagia. gastrographin swallow demonstrated delayed movement of contrast through the gastric sleeve, but EGD did not demonstrate any strictures. She was admitted with an anion gap of 21 and given iv fluids. she has a history of diabetes and has been npo with glucose of 285 mg/dL on my evaluation. Per nursing report, she never returned back to neurologic baseline after anesthesia for EGD. this morning, ABG was ordered with was 6.9/137 with BE -28 and a calculated bicarb of 2. She arrives in acute distress. ROS unobtainable due to mental status. emergently given 4L LR and 1 amp bicarb. CXR and KUB did not demonstrate free air. no additional information is available from the patient. Subjective: 05/14: improvements in metabolic derrangements, but remains in DKA and acidotic. mental status is also a continued concern: she arouses to voice but only repeats "yeah". does not follow commands. briskly purposeful. Objective Vital Signs / I&O: Vital Signs 05/13/18 08:10 05/13/18 10:20 05/13/18 12:00 Temperature 36.4 C L 35.8 C L Pulse Rate 126 H 125 H 124 H Respiratory Rate 20 36 H 43 H Blood Pressure 143/80 H 137/71 151/80 H Pulse Oximetry 74 L 89 L 05/13/18 16:49 05/13/18 20:00 05/14/18 00:00 Temperature 36.1 C L 37.5 C Pulse Rate 106 H 108 H Respiratory Rate 16 24 Blood Pressure 140/64 151/70 H Pulse Oximetry 96 100 100 05/14/18 04:00 Temperature 37.1 C Pulse Rate 80 Respiratory Rate 22 Blood Pressure 139/63 Pulse Oximetry 100 Intake & Output 05/13/18 05/14/18 05/14/18 18:59 06:59 18:59 Intake Total 4300 / 4300 1200 / 1200 Output Total 3400 / 3400 1745 / 1745 Balance 900 / 900 -545 / -545 Weight 88.5 kg Intake: IV 4300 / 4300 1200 / 1200 D5W/LR Inj 1,000 ML @ 150 mls/ 1000 / 1000 1000 / 1000 hr IV.CONT .Q6H40M [facility] Rx#: [id number] Protonix Inj 80 MG In NS Inj 100 / 100 100 ML @ 10 mls/hr IV.CONT CONT [facility] Rx#:[id number] NS Inj 1,000 ML @ 125 mls/hr IV 1000 / 1000 .CONT .Q8H [facility] Rx#:[id number] LR 1000 mL Inj 2,000 ML @ Wide 2000 / 1999 Open IV.SIG BOLUS ONE Rx#: [id number] Zosyn 4.5 GM Premix 4.5 gm In 200 / 200 200 / 200 100 ml @ 200 mls/hr IV.SIG Q6H [facility] Rx#:[id number] Oral 0 / 0 Output: Urine Amount (Catheter) 3400 / 3400 1745 / 1745 Indwelling Urethral Catheter 3400 / 3400 1745 / 1745 Result Diagrams: 05/14/18 03:46 05/14/18 03:46 Objective Remarks: gen: middle-aged female, altered. heent: nc. at. perrl. mucous membranes moist neck: no jvd. trachea midline. chest: room air. improved respirations. no accessory muscle use today. cv: tachycardic rate in the 100s, regular rhythm. sinus. abd: soft, mildly distended, nontender, no guarding or rebound. extr: no edema. distal pulses 2+. improved cap refill. neuro: RASS -3. arouses to loud voice. does not follow commands. repeats "yeah" . briskly purposeful. moves all extremities. Assessment and Plan - Assessment and Plan Plan: Assessment: 57yF s/p gastric sleeve in 02/2018 presents with severe life- threatening anion-gap metabolic acidosis, dehydration, diabetic ketoacidosis. although her metabolic derangements are somewhat improving, her encephalopathy has worsened and is very concerning. will obtain MRI brain today. continue insulin drip and ongoing fluid resuscitation. remains critically ill and still in DKA, off pathway, despite 24h of aggressive therapy. Neuro: Acute metabolic encephalopathy- worsening. - likely secondary to metabolic derangements - frequent neuro checks - avoid long-acting sedatives - MRI brain today. Resp: Kussmaul respirations- improving. Respiratory distress- improving. Acute hypoxemia- improving. - wean o2 by nc for goal spo2 > 90% - serial abg - CT chest without evidence of infection. CV: Sinus tachycardia- improving. - likely secondary to dehydration - may be severe sepsis? - mivf Renal: Acute kidney injury- persistent. - likely secondary to severe dehydration - continue jones today. - strict i/o's - mivf - daily bmp FEN/GI: Severe life-threatening anion-gap metabolic acidosis- persistent. s/p gastric sleeve 02/2018 acute dysphagia Severe dehydration- improving. Acute intravascular volume depletion hypokalemia- persistent despite replacement Hypernatremia Hypophosphatemia - full liquid diet per GI, but mental status prevents safe feeding - serial abg - change maintenance fluids to d5w with 15mmol k-acetate and 60 meq na-acetate to help with hypernatremia and hypokalemia, still at 150cc/hr. - trend electrolytes - ICU electrolyte protocol - aggressive K replacement - aggressive phos replacement. - serial bmp, mg, phos - serial BHB. Heme/ID: Possible Severe Sepsis - given dysphagia, cannot rule out. continue empiric zosyn - CXR/CT not consistent with aspiration - blood and urine cultures currently NGTD. Endo: Diabetes DKA- persistent - continue insulin drip - q1h accuchecks - trend serum ketones Prophylaxis: SCDs SQH Lines: piv must keep jones today: persistent jerson and need to trend accurate i/o's. Dispo: remain in ICU. very critically ill. Critical care time: 42 minutes, exclusive of separately billable procedures. continued to actively manage electrolyte derrangements, worsening encephalopathy , frequent re-evaluations for serial neurologic exams. discussions with consultants and family.
[2018-05-14] MEDS ORDERED: Potassium Phosphate Inj 30 MMOL in Sodium Chlor 0.9% Inj 250 ML IV.SIG ONE (09:00)
[2018-05-14] MEDS: [UNRECOGNIZED DRUG - OTHER] IV.CONT SCH ×6 (10:22→18:24)
[2018-05-14] MEDS: DEXTROSE 5% IV.CONT SCH ×6 (10:22→18:24)
[2018-05-14] MEDS: SODIUM ACETATE IV.CONT SCH ×6 (10:22→18:24)
[2018-05-14] MEDS: POTASSIUM ACETATE IV.CONT SCH ×6 (10:22→18:24)
[2018-05-14] MEDS: Potassium Chlor 20 mEq Premix 20 MEQ/100 ML PIGGYBACK IV.SIG PRN ×2 (10:23→12:15)
[2018-05-14 14:34] LABS: Beta Hydroxybutyric Acid 3.75 mmol/L (0.00-0.39); Calcium 8.9 mg/dL (8.5-10.1); Phosphorus 0.8 mg/dL (2.5-4.9); Potassium 3.5 meq/L (3.5-5.1)
--- NOTE | 2018-05-14 14:56 | MR ---
EXAM DATE: 05/14/2018 2:51 PM EDT AGE/SEX: 57 years / Female INDICATIONS: Altered mental status. CLINICAL DATA: This is the patient's initial encounter. Patient reports that signs and symptoms have been present for 2 days and indicates a pain score of 0/10. MEDICAL/SURGICAL HISTORY: Hypertension. Hypercholesterolemia. Diabetes mellitus type II. Sandi zulay bypass. section. Discectomy, cervical. COMPARISON: No prior exams available for comparison. TECHNIQUE: Multiplanar, multisequence examination of the brain was performed without contrast. FINDINGS: Diffusion weighted images demonstrate no evidence for acute infarction. Ventricles and cisterns are o f normal size and configuration. The signal intensity of the brain is normal. There is no evidence fo r intracranial hemorrhage or mass. CONCLUSION: 1. Negative MR Brain non contrast. Electronically signed by: Ricardo Key MD 05/14/2018 2:54 PM EDT
--- NOTE | 2018-05-14 16:38 | P.PNGI ---
Subjective Interval history: Patient continues in the ICU setting nausea but no vomiting no obvious abdominal pain Drowsy and sleeping but did respond briefly, status post pain meds <Jennifer Chan M - Last Filed: 05/14/18 16:41> Physical Exam Vital signs: Vital Signs 05/13/18 16:49 05/13/18 20:00 05/14/18 00:00 Temperature 97 F L 99.5 F Pulse Rate 106 H 108 H Respiratory Rate 16 24 Blood Pressure 140/64 151/70 H Pulse Oximetry 96 100 100 05/14/18 04:00 05/14/18 08:00 05/14/18 09:00 Temperature 98.8 F Pulse Rate 80 94 H Respiratory Rate 22 Blood Pressure 139/63 Pulse Oximetry 100 100 05/14/18 09:02 05/14/18 12:00 Temperature 98.6 F Pulse Rate 109 H Respiratory Rate 20 Blood Pressure 127/63 Pulse Oximetry 99 98 Intake & Output 05/13/18 05/14/18 05/14/18 18:59 06:59 18:59 Intake Total 4300 / 4300 1200 / 1200 1300 / 1300 Output Total 3400 / 3400 1745 / 1745 Balance 900 / 900 -545 / -545 1300 / 1300 Weight 88.5 kg Intake: IV 4300 / 4300 1200 / 1200 1300 / 1300 D5W/LR Inj 1,000 ML @ 150 mls/ 1000 / 1000 1000 / 1000 1000 / 1000 hr IV.CONT .Q6H40M [facility] Rx#: [id number] Protonix Inj 80 MG In NS Inj 100 / 100 100 ML @ 10 mls/hr IV.CONT CONT [facility] Rx#:[id number] NS Inj 1,000 ML @ 125 mls/hr IV 1000 / 1000 .CONT .Q8H [facility] Rx#:[id number] LR 1000 mL Inj 2,000 ML @ Wide 2000 / 2000 Open IV.SIG BOLUS ONE Rx#: [id number] Zosyn 4.5 GM Premix 4.5 gm In 200 / 200 200 / 200 100 / 100 100 ml @ 200 mls/hr IV.SIG Q6H [facility] Rx#:[id number] KCl 20 mEq Premix Inj 20 meq In 200 / 200 100 ml @ 50 mls/hr IV.SIG Q2H PRN Rx#:[id number] Oral 0 / 0 Output: Urine Amount (Catheter) 3400 / 3400 1745 / 1745 Indwelling Urethral Catheter 3400 / 3400 1745 / 1745 - Constitutional obese, disheveled, somnolent - Routine HEENT Exam Head: Present: normocephalic ENT: Present: mucous membranes dry - Routine Respiratory Exam Present: accessory muscle use - Routine Cardiovascular Exam Present: S1, S2 (No obvious shortness of breath) - Routine Abdominal Exam Present: soft (Round,), normoactive bowel sounds, distended (Mild) - Urinary Catheter Management Indwelling Urethral Catheter Cath placed during this visit: yes Reason for continuing: Acute urinary retention Insertion date: 05/13/18 Insertion time: 14:35 <Jennifer Chan - Last Filed: 05/14/18 16:41> Vital signs: Vital Signs 05/13/18 20:00 05/14/18 00:00 05/14/18 04:00 Temperature 97 F L 99.5 F 98.8 F Pulse Rate 106 H 108 H 80 Respiratory Rate 16 24 22 Blood Pressure 140/64 151/70 H 139/63 Pulse Oximetry 100 100 100 05/14/18 08:00 05/14/18 09:00 05/14/18 09:02 Temperature Pulse Rate 94 H Respiratory Rate Blood Pressure Pulse Oximetry 100 99 05/14/18 12:00 05/14/18 16:00 Temperature 98.6 F 98.7 F Pulse Rate 109 H 98 H Respiratory Rate 20 14 Blood Pressure 127/63 135/66 Pulse Oximetry 98 100 Intake & Output 05/13/18 05/14/18 05/14/18 18:59 06:59 18:59 Intake Total 4300 / 4300 1200 / 1200 1300 / 1300 Output Total 3400 / 3400 1745 / 1745 Balance 900 / 900 -545 / -545 1300 / 1300 Weight 88.5 kg Intake: IV 4300 / 4300 1200 / 1200 1300 / 1300 D5W/LR Inj 1,000 ML @ 150 mls/ 1000 / 1000 1000 / 1000 1000 / 1000 hr IV.CONT .Q6H40M [facility] Rx#: [id number] Protonix Inj 80 MG In NS Inj 100 / 100 100 ML @ 10 mls/hr IV.CONT CONT [facility] Rx#:[id number] NS Inj 1,000 ML @ 125 mls/hr IV 1000 / 1000 .CONT .Q8H [facility] Rx#:[id number] LR 1000 mL Inj 2,000 ML @ Wide 2000 / 1999 Open IV.SIG BOLUS ONE Rx#: [id number] Zosyn 4.5 GM Premix 4.5 gm In 200 / 200 200 / 200 100 / 100 100 ml @ 200 mls/hr IV.SIG Q6H [facility] Rx#:[id number] KCl 20 mEq Premix Inj 20 meq In 200 / 200 100 ml @ 50 mls/hr IV.SIG Q2H PRN Rx#:[id number] Oral 0 / 0 Output: Urine Amount (Catheter) 3400 / 3400 1745 / 1745 Indwelling Urethral Catheter 3400 / 3400 1745 / 1745 - Urinary Catheter Management Indwelling Urethral Catheter Cath placed during this visit: no <Jerrell Casper E - Last Filed: 05/14/18 16:55> Results - Labs CBC & Chem 7: 05/14/18 03:46 05/14/18 12:57 Laboratory Results - last 24 hr 05/13/18 05/13/18 05/13/18 17:15 17:27 18:25 WBC RBC Hgb Hct MCV MCH MCHC RDW Plt Count MPV Puncture Site Patient Temperature O2 Saturation ABG pH ABG pCO2 ABG pO2 ABG HCO3 ABG O2 Content ABG Base Excess ABG Methemoglobin Sheldon Test Hemoglobin Carboxyhemoglobin Inspired O2 Critical Value Sodium 154 H Potassium 3.6 D Chloride 125 H Carbon Dioxide 12.0 L Anion Gap 17 H BUN 20 H Creatinine 1.27 H Estimated GFR 43 L POC Glucose 157 H 136 H Random Glucose 163 H D Calcium 9.0 Phosphorus 0.4 L D Magnesium 2.0 D Beta-Hydroxybutyric Acd 05/13/18 05/13/18 05/13/18 19:28 19:59 20:59 WBC RBC Hgb Hct MCV MCH MCHC RDW Plt Count MPV Puncture Site Patient Temperature O2 Saturation ABG pH ABG pCO2 ABG pO2 ABG HCO3 ABG O2 Content ABG Base Excess ABG Methemoglobin Sheldon Test Hemoglobin Carboxyhemoglobin Inspired O2 Critical Value Sodium Potassium Chloride Carbon Dioxide Anion Gap BUN Creatinine Estimated GFR POC Glucose 149 H 167 H 191 H Random Glucose Calcium Phosphorus Magnesium Beta-Hydroxybutyric Acd 05/13/18 05/13/18 05/13/18 22:19 22:32 23:11 WBC RBC Hgb Hct MCV MCH MCHC RDW Plt Count MPV Puncture Site Patient Temperature O2 Saturation ABG pH ABG pCO2 ABG pO2 ABG HCO3 ABG O2 Content ABG Base Excess ABG Methemoglobin Sheldon Test Hemoglobin Carboxyhemoglobin Inspired O2 Critical Value Sodium 154 H Potassium 3.5 Chloride 125 H Carbon Dioxide 15.1 L Anion Gap 14 BUN 20 H Creatinine 1.44 H Estimated GFR 37 L POC Glucose 200 H 202 H Random Glucose 199 H Calcium 9.2 Phosphorus 0.3 L Magnesium 2.0 Beta-Hydroxybutyric Acd 05/14/18 05/14/18 05/14/18 00:05 00:55 01:55 WBC RBC Hgb Hct MCV MCH MCHC RDW Plt Count MPV Puncture Site Patient Temperature O2 Saturation ABG pH ABG pCO2 ABG pO2 ABG HCO3 ABG O2 Content ABG Base Excess ABG Methemoglobin Sheldon Test Hemoglobin Carboxyhemoglobin Inspired O2 Critical Value Sodium Potassium Chloride Carbon Dioxide Anion Gap BUN Creatinine Estimated GFR POC Glucose 216 H 171 H 143 H Random Glucose Calcium Phosphorus Magnesium Beta-Hydroxybutyric Acd 05/14/18 05/14/18 05/14/18 02:39 03:31 03:46 WBC RBC Hgb Hct MCV MCH MCHC RDW Plt Count MPV Puncture Site Patient Temperature O2 Saturation ABG pH ABG pCO2 ABG pO2 ABG HCO3 ABG O2 Content ABG Base Excess ABG Methemoglobin Sheldon Test Hemoglobin Carboxyhemoglobin Inspired O2 Critical Value Sodium 157 H* Potassium 3.3 L Chloride 125 H Carbon Dioxide 16.0 L Anion Gap 16 H BUN 18 Creatinine 1.31 H Estimated GFR 42 L POC Glucose 155 H 159 H Random Glucose 174 H Calcium 9.1 Phosphorus 0.4 L Magnesium 2.2 Beta-Hydroxybutyric Acd 5.19 H D 05/14/18 05/14/18 05/14/18 03:46 05:10 05:15 WBC 15.8 H RBC 4.57 Hgb 13.5 Hct 40.0 MCV 87.6 D MCH 29.5 MCHC 33.7 RDW 16.4 Plt Count 258 D MPV 8.2 Puncture Site Right radial Patient Temperature 98.6 O2 Saturation 95 ABG pH 7.35 L ABG pCO2 33 L ABG pO2 94 ABG HCO3 18 L ABG O2 Content 17.8 ABG Base Excess -6.9 L ABG Methemoglobin 1.6 Sheldon Test Present Hemoglobin 13.2 Carboxyhemoglobin 1.6 Inspired O2 21 Critical Value No Sodium Potassium Chloride Carbon Dioxide Anion Gap BUN Creatinine Estimated GFR POC Glucose 190 H Random Glucose Calcium Phosphorus Magnesium Beta-Hydroxybutyric Acd 05/14/18 05/14/18 05/14/18 06:17 07:12 08:24 WBC RBC Hgb Hct MCV MCH MCHC RDW Plt Count MPV Puncture Site Patient Temperature O2 Saturation ABG pH ABG pCO2 ABG pO2 ABG HCO3 ABG O2 Content ABG Base Excess ABG Methemoglobin Sheldon Test Hemoglobin Carboxyhemoglobin Inspired O2 Critical Value Sodium Potassium Chloride Carbon Dioxide Anion Gap BUN Creatinine Estimated GFR POC Glucose 166 H 166 H 148 H Random Glucose Calcium Phosphorus Magnesium Beta-Hydroxybutyric Acd 05/14/18 05/14/18 05/14/18 09:16 10:35 11:27 WBC RBC Hgb Hct MCV MCH MCHC RDW Plt Count MPV Puncture Site Patient Temperature O2 Saturation ABG pH ABG pCO2 ABG pO2 ABG HCO3 ABG O2 Content ABG Base Excess ABG Methemoglobin Sheldon Test Hemoglobin Carboxyhemoglobin Inspired O2 Critical Value Sodium Potassium Chloride Carbon Dioxide Anion Gap BUN Creatinine Estimated GFR POC Glucose 169 H 207 H 189 H Random Glucose Calcium Phosphorus Magnesium Beta-Hydroxybutyric Acd 05/14/18 05/14/18 05/14/18 12:51 12:57 14:30 WBC RBC Hgb Hct MCV MCH MCHC RDW Plt Count MPV Puncture Site Patient Temperature O2 Saturation ABG pH ABG pCO2 ABG pO2 ABG HCO3 ABG O2 Content ABG Base Excess ABG Methemoglobin Sheldon Test Hemoglobin Carboxyhemoglobin Inspired O2 Critical Value Sodium 158 H* Potassium 3.5 Chloride 125 H Carbon Dioxide 22.0 Anion Gap 11 BUN 17 Creatinine 1.25 H Estimated GFR 44 L POC Glucose 191 H 190 H Random Glucose 189 H Calcium 8.9 Phosphorus 0.8 L Magnesium 2.0 Beta-Hydroxybutyric Acd 3.75 H D 05/14/18 05/14/18 15:09 16:26 WBC RBC Hgb Hct MCV MCH MCHC RDW Plt Count MPV Puncture Site Patient Temperature O2 Saturation ABG pH ABG pCO2 ABG pO2 ABG HCO3 ABG O2 Content ABG Base Excess ABG Methemoglobin Sheldon Test Hemoglobin Carboxyhemoglobin Inspired O2 Critical Value Sodium Potassium Chloride Carbon Dioxide Anion Gap BUN Creatinine Estimated GFR POC Glucose 185 H 233 H Random Glucose Calcium Phosphorus Magnesium Beta-Hydroxybutyric Acd Microbiology 05/13/18 11:30 Catheterized Urine Urine Culture - Preliminary No growth in 24 hours 05/13/18 17:27 Blood - Peripheral Aerobic Blood Culture - Preliminary No growth in 1 day 05/13/18 17:27 Blood - Peripheral Anaerobic Blood Culture - Preliminary No growth in 1 day 05/13/18 17:22 Blood - Peripheral Aerobic Blood Culture - Preliminary No growth in 1 day 05/13/18 17:22 Blood - Peripheral Anaerobic Blood Culture - Preliminary No growth in 1 day - Imaging Impressions Head MRI 05/14/18 00:00 CONCLUSION: 1. Negative MR Brain non contrast. <Jennifer Chan - Last Filed: 05/14/18 16:41> - Labs CBC & Chem 7: 05/14/18 03:46 05/14/18 12:57 Laboratory Results - last 24 hr 05/13/18 05/13/18 05/13/18 17:15 17:27 18:25 WBC RBC Hgb Hct MCV MCH MCHC RDW Plt Count MPV Puncture Site Patient Temperature O2 Saturation ABG pH ABG pCO2 ABG pO2 ABG HCO3 ABG O2 Content ABG Base Excess ABG Methemoglobin Sheldon Test Hemoglobin Carboxyhemoglobin Inspired O2 Critical Value Sodium 154 H Potassium 3.6 D Chloride 125 H Carbon Dioxide 12.0 L Anion Gap 17 H BUN 20 H Creatinine 1.27 H Estimated GFR 43 L POC Glucose 157 H 136 H Random Glucose 163 H D Calcium 9.0 Phosphorus 0.4 L D Magnesium 2.0 D Beta-Hydroxybutyric Acd 05/13/18 05/13/18 05/13/18 19:28 19:59 20:59 WBC RBC Hgb Hct MCV MCH MCHC RDW Plt Count MPV Puncture Site Patient Temperature O2 Saturation ABG pH ABG pCO2 ABG pO2 ABG HCO3 ABG O2 Content ABG Base Excess ABG Methemoglobin Sheldon Test Hemoglobin Carboxyhemoglobin Inspired O2 Critical Value Sodium Potassium Chloride Carbon Dioxide Anion Gap BUN Creatinine Estimated GFR POC Glucose 149 H 167 H 191 H Random Glucose Calcium Phosphorus Magnesium Beta-Hydroxybutyric Acd 05/13/18 05/13/18 05/13/18 22:19 22:32 23:11 WBC RBC Hgb Hct MCV MCH MCHC RDW Plt Count MPV Puncture Site Patient Temperature O2 Saturation ABG pH ABG pCO2 ABG pO2 ABG HCO3 ABG O2 Content ABG Base Excess ABG Methemoglobin Sheldon Test Hemoglobin Carboxyhemoglobin Inspired O2 Critical Value Sodium 154 H Potassium 3.5 Chloride 125 H Carbon Dioxide 15.1 L Anion Gap 14 BUN 20 H Creatinine 1.44 H Estimated GFR 37 L POC Glucose 200 H 202 H Random Glucose 199 H Calcium 9.2 Phosphorus 0.3 L Magnesium 2.0 Beta-Hydroxybutyric Acd 05/14/18 05/14/18 05/14/18 00:05 00:55 01:55 WBC RBC Hgb Hct MCV MCH MCHC RDW Plt Count MPV Puncture Site Patient Temperature O2 Saturation ABG pH ABG pCO2 ABG pO2 ABG HCO3 ABG O2 Content ABG Base Excess ABG Methemoglobin Sheldon Test Hemoglobin Carboxyhemoglobin Inspired O2 Critical Value Sodium Potassium Chloride Carbon Dioxide Anion Gap BUN Creatinine Estimated GFR POC Glucose 216 H 171 H 143 H Random Glucose Calcium Phosphorus Magnesium Beta-Hydroxybutyric Acd 05/14/18 05/14/18 05/14/18 02:39 03:31 03:46 WBC RBC Hgb Hct MCV MCH MCHC RDW Plt Count MPV Puncture Site Patient Temperature O2 Saturation ABG pH ABG pCO2 ABG pO2 ABG HCO3 ABG O2 Content ABG Base Excess ABG Methemoglobin Sheldon Test Hemoglobin Carboxyhemoglobin Inspired O2 Critical Value Sodium 157 H* Potassium 3.3 L Chloride 125 H Carbon Dioxide 16.0 L Anion Gap 16 H BUN 18 Creatinine 1.31 H Estimated GFR 42 L POC Glucose 155 H 159 H Random Glucose 174 H Calcium 9.1 Phosphorus 0.4 L Magnesium 2.2 Beta-Hydroxybutyric Acd 5.19 H D 05/14/18 05/14/18 05/14/18 03:46 05:10 05:15 WBC 15.8 H RBC 4.57 Hgb 13.5 Hct 40.0 MCV 87.6 D MCH 29.5 MCHC 33.7 RDW 16.4 Plt Count 258 D MPV 8.2 Puncture Site Right radial Patient Temperature 98.6 O2 Saturation 95 ABG pH 7.35 L ABG pCO2 33 L ABG pO2 94 ABG HCO3 18 L ABG O2 Content 17.8 ABG Base Excess -6.9 L ABG Methemoglobin 1.6 Sheldon Test Present Hemoglobin 13.2 Carboxyhemoglobin 1.6 Inspired O2 21 Critical Value No Sodium Potassium Chloride Carbon Dioxide Anion Gap BUN Creatinine Estimated GFR POC Glucose 190 H Random Glucose Calcium Phosphorus Magnesium Beta-Hydroxybutyric Acd 05/14/18 05/14/18 05/14/18 06:17 07:12 08:24 WBC RBC Hgb Hct MCV MCH MCHC RDW Plt Count MPV Puncture Site Patient Temperature O2 Saturation ABG pH ABG pCO2 ABG pO2 ABG HCO3 ABG O2 Content ABG Base Excess ABG Methemoglobin Sheldon Test Hemoglobin Carboxyhemoglobin Inspired O2 Critical Value Sodium Potassium Chloride Carbon Dioxide Anion Gap BUN Creatinine Estimated GFR POC Glucose 166 H 166 H 148 H Random Glucose Calcium Phosphorus Magnesium Beta-Hydroxybutyric Acd 05/14/18 05/14/18 05/14/18 09:16 10:35 11:27 WBC RBC Hgb Hct MCV MCH MCHC RDW Plt Count MPV Puncture Site Patient Temperature O2 Saturation ABG pH ABG pCO2 ABG pO2 ABG HCO3 ABG O2 Content ABG Base Excess ABG Methemoglobin Sheldon Test Hemoglobin Carboxyhemoglobin Inspired O2 Critical Value Sodium Potassium Chloride Carbon Dioxide Anion Gap BUN Creatinine Estimated GFR POC Glucose 169 H 207 H 189 H Random Glucose Calcium Phosphorus Magnesium Beta-Hydroxybutyric Acd 05/14/18 05/14/18 05/14/18 12:51 12:57 14:30 WBC RBC Hgb Hct MCV MCH MCHC RDW Plt Count MPV Puncture Site Patient Temperature O2 Saturation ABG pH ABG pCO2 ABG pO2 ABG HCO3 ABG O2 Content ABG Base Excess ABG Methemoglobin Sheldon Test Hemoglobin Carboxyhemoglobin Inspired O2 Critical Value Sodium 158 H* Potassium 3.5 Chloride 125 H Carbon Dioxide 22.0 Anion Gap 11 BUN 17 Creatinine 1.25 H Estimated GFR 44 L POC Glucose 191 H 190 H Random Glucose 189 H Calcium 8.9 Phosphorus 0.8 L Magnesium 2.0 Beta-Hydroxybutyric Acd 3.75 H D 05/14/18 05/14/18 15:09 16:26 WBC RBC Hgb Hct MCV MCH MCHC RDW Plt Count MPV Puncture Site Patient Temperature O2 Saturation ABG pH ABG pCO2 ABG pO2 ABG HCO3 ABG O2 Content ABG Base Excess ABG Methemoglobin Sheldon Test Hemoglobin Carboxyhemoglobin Inspired O2 Critical Value Sodium Potassium Chloride Carbon Dioxide Anion Gap BUN Creatinine Estimated GFR POC Glucose 185 H 233 H Random Glucose Calcium Phosphorus Magnesium Beta-Hydroxybutyric Acd Microbiology 05/13/18 11:30 Catheterized Urine Urine Culture - Preliminary No growth in 24 hours 05/13/18 17:27 Blood - Peripheral Aerobic Blood Culture - Preliminary No growth in 1 day 05/13/18 17:27 Blood - Peripheral Anaerobic Blood Culture - Preliminary No growth in 1 day 05/13/18 17:22 Blood - Peripheral Aerobic Blood Culture - Preliminary No growth in 1 day 05/13/18 17:22 Blood - Peripheral Anaerobic Blood Culture - Preliminary No growth in 1 day - Imaging Impressions Head MRI 05/14/18 00:00 CONCLUSION: 1. Negative MR Brain non contrast. <Jerrell Casper E - Last Filed: 05/14/18 16:55> Assessment and Plan (1) Nausea & vomiting Status: Acute Code(s): R11.2 - Nausea with vomiting, unspecified - Plan 05/13/2018 status post EGD on 05/12/2018 Patient with nausea and vomiting with a recent history of a gastric sleeve Endoscopy showing Nunez gastritis biopsies pending Agree with current supportive care Recommend aggressive hydration Monitor labs Continue with anti-emetics Low residue diet when patient is able Further recommendations she will depend on her hospital course Ms. Gandhi is a 57-year-old female who presented to the emergency room today with complaint of difficulty swallowing solid food and liquids with persistent nausea and vomiting over the last 2-3 days. Patient's history significant for gastric sleeve gastrectomy on March 06, 2018. Patient takes PPI as home medication and reports that she has been taking same without interruption. She denies use of any blood thinners. Patient n.p.o. at this time. She reports last EGD done prior to gastric sleeve surgery. Last colonoscopy done at age 48 per patient with no abnormalities found at that time. Patient denies any noted blood in emesis or stools. States she has a bowel movement every 3-4 days and that is her norm. Patient denies any abdominal pain. She endorses increasing generalized weakness over the last few days which she attributes to the nausea and vomiting. This practice has been consulted to evaluate patient for dysphagia, nausea and vomiting. Plan for EGD today. Procedure discussed with patient who verbalizes agreement and understanding. 05/14/2018 patient is continues to rest in the intensive care setting but appears to be very drowsy at this time status post recent pain medication patient does note some nausea but no vomiting and no abdominal pain current hemoglobin 13.5, WBC count decreased to 15.8. Still appears to have some generalized weakness and fatigue. Pangastritis per EGD Plan: Diet as tolerated, encourage hydration, consider low residue diet Biopsies pending Monitor labs Monitor symptoms of nausea and vomiting and any obvious bleeding PPI drip, continue for now due to patient's nausea symptoms Bowel regimen Supportive care This patient has been seen by myself and Dr. Casper and this note is written on his behalf <Jennifer Chan M - Last Filed: 05/14/18 16:41> (1) Nausea & vomiting Status: Acute Code(s): R11.2 - Nausea with vomiting, unspecified - Plan Patient seen and examined Agree with above Continue with current supportive care Monitor labs Patient still lethargic but arousable and more responsive. Sister at bedside tells me she thinks patient is getting better Encourage hydration and low residue diet <Jerrell Casper - Last Filed: 05/14/18 16:55>
--- NOTE | 2018-05-14 18:19 | P.PNGS ---
Subjective Interval history: Pt confused Physical Exam Vital signs: Vital Signs 05/13/18 20:00 05/14/18 00:00 05/14/18 04:00 Temperature 97 F L 99.5 F 98.8 F Pulse Rate 106 H 108 H 80 Respiratory Rate 16 24 22 Blood Pressure 140/64 151/70 H 139/63 Pulse Oximetry 100 100 100 05/14/18 08:00 05/14/18 09:00 05/14/18 09:02 Temperature Pulse Rate 94 H Respiratory Rate Blood Pressure Pulse Oximetry 100 99 05/14/18 12:00 05/14/18 16:00 Temperature 98.6 F 98.7 F Pulse Rate 109 H 98 H Respiratory Rate 20 14 Blood Pressure 127/63 135/66 Pulse Oximetry 98 100 Intake & Output 05/13/18 05/14/18 05/14/18 18:59 06:59 18:59 Intake Total 4300 / 4300 1200 / 1200 1300 / 1300 Output Total 3400 / 3400 1745 / 1745 Balance 900 / 900 -545 / -545 1300 / 1300 Weight 88.5 kg Intake: IV 4300 / 4300 1200 / 1200 1300 / 1300 D5W/LR Inj 1,000 ML @ 150 mls/ 1000 / 1000 1000 / 1000 1000 / 1000 hr IV.CONT .Q6H40M ELIZ[facility]ETH Rx#: [id number] Protonix Inj 80 MG In NS Inj 100 / 100 100 ML @ 10 mls/hr IV.CONT CONT ELIZABETH Rx#:[id number] NS Inj 1,000 ML @ 125 mls/hr IV 1000 / 1000 .CONT .Q8H ELIZABETH Rx#:[id number] LR 1000 mL Inj 2,000 ML @ Wide 1999 / 1999 Open IV.SIG BOLUS ONE Rx#: [id number] Zosyn 4.5 GM Premix 4.5 gm In 200 / 200 200 / 200 100 / 100 100 ml @ 200 mls/hr IV.SIG Q6H ELIZABETH Rx#:[id number] KCl 20 mEq Premix Inj 20 meq In 200 / 200 100 ml @ 50 mls/hr IV.SIG Q2H PRN Rx#:[id number] Oral 0 / 0 Output: Urine Amount (Catheter) 3400 / 3400 1745 / 1745 Indwelling Urethral Catheter 3400 / 3400 1745 / 1745 - Constitutional no acute distress - Routine Cardiovascular Exam Present: RRR - Routine Abdominal Exam Present: soft, tenderness - Urinary Catheter Management Indwelling Urethral Catheter Cath placed during this visit: yes Reason for continuing: Acute urinary retention Insertion date: 05/13/18 Insertion time: 14:35 Results - Labs 05/14/18 03:46 05/14/18 12:57 Laboratory Results - last 24 hr 05/13/18 05/13/18 05/13/18 17:27 18:25 19:28 WBC RBC Hgb Hct MCV MCH MCHC RDW Plt Count MPV Puncture Site Patient Temperature O2 Saturation ABG pH ABG pCO2 ABG pO2 ABG HCO3 ABG O2 Content ABG Base Excess ABG Methemoglobin Sheldon Test Hemoglobin Carboxyhemoglobin Inspired O2 Critical Value Sodium 154 H Potassium 3.6 D Chloride 125 H Carbon Dioxide 12.0 L Anion Gap 17 H BUN 20 H Creatinine 1.27 H Estimated GFR 43 L POC Glucose 136 H 149 H Random Glucose 163 H D Calcium 9.0 Phosphorus 0.4 L D Magnesium 2.0 D Beta-Hydroxybutyric Acd 05/13/18 05/13/18 05/13/18 19:59 20:59 22:19 WBC RBC Hgb Hct MCV MCH MCHC RDW Plt Count MPV Puncture Site Patient Temperature O2 Saturation ABG pH ABG pCO2 ABG pO2 ABG HCO3 ABG O2 Content ABG Base Excess ABG Methemoglobin Sheldon Test Hemoglobin Carboxyhemoglobin Inspired O2 Critical Value Sodium Potassium Chloride Carbon Dioxide Anion Gap BUN Creatinine Estimated GFR POC Glucose 167 H 191 H 200 H Random Glucose Calcium Phosphorus Magnesium Beta-Hydroxybutyric Acd 05/13/18 05/13/18 05/14/18 22:32 23:11 00:05 WBC RBC Hgb Hct MCV MCH MCHC RDW Plt Count MPV Puncture Site Patient Temperature O2 Saturation ABG pH ABG pCO2 ABG pO2 ABG HCO3 ABG O2 Content ABG Base Excess ABG Methemoglobin Sheldon Test Hemoglobin Carboxyhemoglobin Inspired O2 Critical Value Sodium 154 H Potassium 3.5 Chloride 125 H Carbon Dioxide 15.1 L Anion Gap 14 BUN 20 H Creatinine 1.44 H Estimated GFR 37 L POC Glucose 202 H 216 H Random Glucose 199 H Calcium 9.2 Phosphorus 0.3 L Magnesium 2.0 Beta-Hydroxybutyric Acd 05/14/18 05/14/18 05/14/18 00:55 01:55 02:39 WBC RBC Hgb Hct MCV MCH MCHC RDW Plt Count MPV Puncture Site Patient Temperature O2 Saturation ABG pH ABG pCO2 ABG pO2 ABG HCO3 ABG O2 Content ABG Base Excess ABG Methemoglobin Sheldon Test Hemoglobin Carboxyhemoglobin Inspired O2 Critical Value Sodium Potassium Chloride Carbon Dioxide Anion Gap BUN Creatinine Estimated GFR POC Glucose 171 H 143 H 155 H Random Glucose Calcium Phosphorus Magnesium Beta-Hydroxybutyric Acd 05/14/18 05/14/18 05/14/18 03:31 03:46 03:46 WBC 15.8 H RBC 4.57 Hgb 13.5 Hct 40.0 MCV 87.6 D MCH 29.5 MCHC 33.7 RDW 16.4 Plt Count 258 D MPV 8.2 Puncture Site Patient Temperature O2 Saturation ABG pH ABG pCO2 ABG pO2 ABG HCO3 ABG O2 Content ABG Base Excess ABG Methemoglobin Sheldon Test Hemoglobin Carboxyhemoglobin Inspired O2 Critical Value Sodium 157 H* Potassium 3.3 L Chloride 125 H Carbon Dioxide 16.0 L Anion Gap 16 H BUN 18 Creatinine 1.31 H Estimated GFR 42 L POC Glucose 159 H Random Glucose 174 H Calcium 9.1 Phosphorus 0.4 L Magnesium 2.2 Beta-Hydroxybutyric Acd 5.19 H D 05/14/18 05/14/18 05/14/18 05:10 05:15 06:17 WBC RBC Hgb Hct MCV MCH MCHC RDW Plt Count MPV Puncture Site Right radial Patient Temperature 98.6 O2 Saturation 95 ABG pH 7.35 L ABG pCO2 33 L ABG pO2 94 ABG HCO3 18 L ABG O2 Content 17.8 ABG Base Excess -6.9 L ABG Methemoglobin 1.6 Sheldon Test Present Hemoglobin 13.2 Carboxyhemoglobin 1.6 Inspired O2 21 Critical Value No Sodium Potassium Chloride Carbon Dioxide Anion Gap BUN Creatinine Estimated GFR POC Glucose 190 H 166 H Random Glucose Calcium Phosphorus Magnesium Beta-Hydroxybutyric Acd 05/14/18 05/14/18 05/14/18 07:12 08:24 09:16 WBC RBC Hgb Hct MCV MCH MCHC RDW Plt Count MPV Puncture Site Patient Temperature O2 Saturation ABG pH ABG pCO2 ABG pO2 ABG HCO3 ABG O2 Content ABG Base Excess ABG Methemoglobin Sheldon Test Hemoglobin Carboxyhemoglobin Inspired O2 Critical Value Sodium Potassium Chloride Carbon Dioxide Anion Gap BUN Creatinine Estimated GFR POC Glucose 166 H 148 H 169 H Random Glucose Calcium Phosphorus Magnesium Beta-Hydroxybutyric Acd 05/14/18 05/14/18 05/14/18 10:35 11:27 12:51 WBC RBC Hgb Hct MCV MCH MCHC RDW Plt Count MPV Puncture Site Patient Temperature O2 Saturation ABG pH ABG pCO2 ABG pO2 ABG HCO3 ABG O2 Content ABG Base Excess ABG Methemoglobin Sheldon Test Hemoglobin Carboxyhemoglobin Inspired O2 Critical Value Sodium Potassium Chloride Carbon Dioxide Anion Gap BUN Creatinine Estimated GFR POC Glucose 207 H 189 H 191 H Random Glucose Calcium Phosphorus Magnesium Beta-Hydroxybutyric Acd 05/14/18 05/14/18 05/14/18 12:57 14:30 15:09 WBC RBC Hgb Hct MCV MCH MCHC RDW Plt Count MPV Puncture Site Patient Temperature O2 Saturation ABG pH ABG pCO2 ABG pO2 ABG HCO3 ABG O2 Content ABG Base Excess ABG Methemoglobin Sheldon Test Hemoglobin Carboxyhemoglobin Inspired O2 Critical Value Sodium 158 H* Potassium 3.5 Chloride 125 H Carbon Dioxide 22.0 Anion Gap 11 BUN 17 Creatinine 1.25 H Estimated GFR 44 L POC Glucose 190 H 185 H Random Glucose 189 H Calcium 8.9 Phosphorus 0.8 L Magnesium 2.0 Beta-Hydroxybutyric Acd 3.75 H D 05/14/18 05/14/18 05/14/18 16:26 17:24 17:59 WBC RBC Hgb Hct MCV MCH MCHC RDW Plt Count MPV Puncture Site Patient Temperature O2 Saturation ABG pH ABG pCO2 ABG pO2 ABG HCO3 ABG O2 Content ABG Base Excess ABG Methemoglobin Sheldon Test Hemoglobin Carboxyhemoglobin Inspired O2 Critical Value Sodium Potassium Chloride Carbon Dioxide Anion Gap BUN Creatinine Estimated GFR POC Glucose 233 H 247 H 204 H Random Glucose Calcium Phosphorus Magnesium Beta-Hydroxybutyric Acd - Imaging Imaging: ITS Impressions Gastrografin Study 05/12/18 05:51 CONCLUSION: Initial films have suggested obstruction of the sleeve. The sleeve is not obstructed but poorly empties even in the upright position. Abdomen X-Ray 05/13/18 00:00 CONCLUSION: Nonspecific abdomen. Chest X-Ray 05/13/18 10:48 CONCLUSION: Mild interstitial prominence otherwise negative Abdomen/Pelvis CT 05/13/18 12:03 CONCLUSION: 1. No acute findings. Chest CT 05/13/18 12:03 CONCLUSION: 1. Small pericardial effusion and mild dependent atelectasis. 2. Otherwise unremarkable. Head MRI 05/14/18 00:00 CONCLUSION: 1. Negative MR Brain non contrast. Assessment and Plan - Assessment (1) Acidosis, metabolic Code(s): E87.2 - Acidosis Status: Acute (2) Dysphagia Code(s): R13.10 - Dysphagia, unspecified Status: Acute (3) Nausea & vomiting Code(s): R11.2 - Nausea with vomiting, unspecified Status: Acute - Plan Pt being hydrated Cont ICU care if unable to take PO in next 24 hr will [address] place Dobbhoff catheter for feeding (2) Dysphagia Qualifiers: Dysphagia type: unspecified Qualified Code(s): R13.10 - Dysphagia, unspecified
[2018-05-14] MEDS: Insulin Regular (For Infusion) 100 UNIT in Sodium Chlor 0.9% Inj 99 ML IV.CONT PRN (18:28)
[2018-05-14 22:08] LABS: Calcium 9.1 mg/dL (8.5-10.1); Carbon Dioxide 24.9 meq/L (21.0-32.0); Phosphorus 0.6 mg/dL (2.5-4.9); Potassium 3.1 meq/L (3.5-5.1)
[2018-05-15] MEDS: [UNRECOGNIZED DRUG - OTHER] IV.CONT SCH ×6 (00:48→08:47)
[2018-05-15] MEDS: Potassium Chlor 20 mEq Premix 20 MEQ/100 ML PIGGYBACK IV.SIG PRN (00:48)
[2018-05-15] MEDS: SODIUM ACETATE IV.CONT SCH ×6 (00:48→08:47)
[2018-05-15] MEDS: POTASSIUM ACETATE IV.CONT SCH ×6 (00:48→08:47)
[2018-05-15] MEDS: DEXTROSE 5% IV.CONT SCH ×6 (00:48→08:47)
[2018-05-15] MEDS: Piperacil/Tazo 4.5 GM Premix 4.5 GM/100 ML BAG IV.SIG SCH ×2 (00:49→06:28)
[2018-05-15] MEDS ORDERED: DC Insulin drip 2 hrs post basal insulin dose OTHER ONE (02:00)
[2018-05-15] MEDS ORDERED: DC previous DKA orders (HMC 1917) OTHER ONE (02:00)
[2018-05-15] MEDS ORDERED: Dextrose 50% in Water 50 ML Vial IV.PUSH PRN (02:00)
[2018-05-15] MEDS ORDERED: Insulin Regular (For Infusion) 100 UNIT in Sodium Chlor 0.9% Inj 99 ML IV.CONT PRN (02:02)
[2018-05-15 04:18] LABS: Hematocrit 37.2 % (35.0-46.0); Hemoglobin 13.5 gm/dL (11.6-15.3); Mean Corpuscular Hemoglobin 30.4 pg (27.0-34.0); Mean Corpuscular Volume 83.9 fL (80.0-100.0); Mean Platelet Volume 8.3 fL (7.0-11.0); Platelet Count 223 th/mm3 (150-450); Red Blood Count 4.44 mil/mm3 (4.00-5.30); Red Cell Distribution Width 16.1 % (11.6-17.2); White Blood Count 12.2 th/mm3 (4.0-11.0)
[2018-05-15 04:32] LABS: ABG Base Excess -0.2 mmol/L (-2-2); ABG PCO2 33 mmHg (38-42); ABG PO2 85 mmHG (61-120)
[2018-05-15 04:42] LABS: Mean Corpuscular HGB Conc 36.2 % (32.0-36.0)
[2018-05-15 04:43] LABS: Beta Hydroxybutyric Acid 3.31 mmol/L (0.00-0.39); Calcium 8.8 mg/dL (8.5-10.1); Carbon Dioxide 26.3 meq/L (21.0-32.0); Magnesium 2.1 mg/dL (1.5-2.5); Phosphorus 0.7 mg/dL (2.5-4.9); Potassium 3.4 meq/L (3.5-5.1)
[2018-05-15] MEDS ORDERED: Potassium Chlor 20 mEq Premix 20 MEQ/100 ML PIGGYBACK IV.SIG PRN ×2 (06:13)
[2018-05-15] MEDS ORDERED: Potassium Phosphate 500 MG Soluble Tablet PO PRN ×2 (06:13)
[2018-05-15] MEDS ORDERED: Magnesium Oxide 400 MG Tablet PO PRN (06:13)
[2018-05-15] MEDS ORDERED: Magnesium Sulfate Inj 4 GM in Sodium Chlor 0.9% Inj 92 ML IV.SIG PRN (06:13)
[2018-05-15] MEDS ORDERED: Potassium Chloride 25 MEQ Effervescent Tablet PO PRN (06:13)
[2018-05-15] MEDS ORDERED: Magnesium Sulfate Inj 2 GM in Sodium Chlor 0.9% Inj 96 ML IV.SIG PRN (06:13)
[2018-05-15] MEDS ORDERED: Potassium Chlor 40 mEq Premix 40 MEQ/100 ML PIGGYBACK IV.SIG PRN ×2 (06:13)
[2018-05-15] MEDS ORDERED: Sodium Phosphate Inj 30 MMOL in Sodium Chlor 0.9% Inj 250 ML IV.SIG PRN (06:13)
[2018-05-15] MEDS: Insulin NovoLOG Aspart Correctional Sugar Inj SQ SCH ×5 (06:28→21:17)
[2018-05-15] MEDS: KCL 20 mEq/D5W/NaCl 0.45% Inj 1,000 ML IV.CONT SCH ×2 (06:29→17:15)
[2018-05-15] MEDS: Potassium Phosphate Inj 30 MMOL in Sodium Chlor 0.9% Inj 250 ML IV.SIG PRN ×2 (06:51→17:16)
[2018-05-15] MEDS: Insulin Detemir Inj 1,000 UNIT/10 ML Vial SQ SCH (06:51)
[2018-05-15 10:16] LABS: Calcium 8.9 mg/dL (8.5-10.1); Carbon Dioxide 29.1 meq/L (21.0-32.0); Magnesium 1.9 mg/dL (1.5-2.5); Potassium 3.1 meq/L (3.5-5.1)
[2018-05-15 10:17] LABS: Phosphorus 0.9 mg/dL (2.5-4.9)
[2018-05-15 10:19] LABS: Beta Hydroxybutyric Acid 1.81 mmol/L (0.00-0.39)
--- NOTE | 2018-05-15 10:45 | P.PNGI ---
Subjective Interval history: Eyes are closed patient is nonverbal moaning at intervals Did open her mouth for oral care but otherwise still appears lethargic. Taking no p.o. fluids or regular food yet <Jennifer Chan M - Last Filed: 05/15/18 10:46> Physical Exam Vital signs: Vital Signs 05/14/18 12:00 05/14/18 16:00 05/14/18 16:37 Temperature 98.6 F 98.7 F Pulse Rate 109 H 98 H 105 H Respiratory Rate 20 14 16 Blood Pressure 127/63 135/66 Pulse Oximetry 98 100 100 05/14/18 17:00 05/14/18 18:00 05/14/18 19:00 Temperature Pulse Rate 110 H 106 H 109 H Respiratory Rate 18 14 13 Blood Pressure 133/65 138/64 140/71 Pulse Oximetry 98 99 97 05/14/18 20:00 05/14/18 20:09 05/14/18 21:00 Temperature Pulse Rate 117 H 104 H Respiratory Rate 16 16 Blood Pressure 145/78 H 143/67 H Pulse Oximetry 98 96 98 05/14/18 22:00 05/14/18 23:00 05/15/18 00:00 Temperature Pulse Rate 110 H 106 H 105 H Respiratory Rate 23 16 21 Blood Pressure 146/73 H 138/99 H Pulse Oximetry 99 99 98 05/15/18 00:05 05/15/18 00:07 05/15/18 01:00 Temperature Pulse Rate 107 H 101 H 107 H Respiratory Rate 14 13 22 Blood Pressure 135/100 H 142/70 H 146/82 H Pulse Oximetry 98 97 99 05/15/18 02:00 05/15/18 03:00 05/15/18 04:00 Temperature Pulse Rate 101 H 106 H 100 H Respiratory Rate 18 21 15 Blood Pressure 143/68 H 139/82 148/67 H Pulse Oximetry 96 99 96 05/15/18 05:00 05/15/18 06:00 05/15/18 07:00 Temperature Pulse Rate 86 85 96 H Respiratory Rate 20 17 24 Blood Pressure 152/67 H 141/66 H 157/114 H Pulse Oximetry 98 99 97 05/15/18 07:11 05/15/18 07:22 05/15/18 08:00 Temperature 99.5 F Pulse Rate 80 86 Respiratory Rate 18 17 Blood Pressure 129/65 132/60 Pulse Oximetry 98 96 97 05/15/18 10:00 Temperature Pulse Rate 61 Respiratory Rate Blood Pressure Pulse Oximetry Intake & Output 05/14/18 05/15/18 05/15/18 18:59 06:59 18:59 Intake Total 2682.5 / 2682.5 1322.5 / 1322.5 100 / 100 Output Total 1000 / 1000 1275 / 1275 Balance 1682.5 / 1682.5 47.5 / 47.5 100 / 100 Weight 87.5 kg Intake: IV 2682.5 / 2682.5 1322.5 / 1322.5 100 / 100 D5W/LR Inj 1,000 ML @ 150 mls/ 1000 / 1000 hr IV.CONT .Q6H40M [facility] Rx#: [id number] NovoLIN R (IV Infusion) 100 100 / 100 UNIT In NS Inj 99 ML @ 8 UNITS/ HR 8 mls/hr IV.CONT TITRATE PRN Rx#:[id number] Potassium Acetate Inj 15 MEQ 1022.5 / 1022.5 1022.5 / 1022.5 Sodium Acetate Inj 60 MEQ In D5W Inj 1,000 ML @ 150 mls/hr IV.CONT .Q6H49M [facility] Rx#: [id number] Zosyn 4.5 GM Premix 4.5 gm In 100 / 100 200 / 200 100 / 100 100 ml @ 200 mls/hr IV.SIG Q6H [facility] Rx#:[id number] KCl 20 mEq Premix Inj 20 meq In 200 / 200 100 / 100 100 ml @ 50 mls/hr IV.SIG Q2H PRN Rx#:[id number] Potassium Phosphate Inj 30 MMOL 260 / 260 In NS Inj 250 ML @ 43.333 mls/ hr IV.SIG ONCE ONE Rx#:[id number] Output: Urine 1000 / 1000 Urine Amount (Catheter) 1275 / 1275 Indwelling Urethral Catheter 1275 / 1275 - Constitutional moderate distress, disheveled - Routine HEENT Exam Head: Present: normocephalic (Lethargic) ENT: Present: mucous membranes dry - Routine Respiratory Exam Present: accessory muscle use - Routine Cardiovascular Exam Present: S1 (No obvious wheezing or rhonchi or shortness of breath) - Routine Abdominal Exam Present: soft (Round, no obvious tenderness or discomfort noted with light palpation, soft bowel sounds) - Urinary Catheter Management Indwelling Urethral Catheter Cath placed during this visit: yes Reason for continuing: Acute urinary retention Insertion date: 05/13/18 Insertion time: 14:35 <Jennifer Chan M - Last Filed: 05/15/18 10:46> Vital signs: Vital Signs 05/14/18 16:00 05/14/18 16:37 05/14/18 17:00 Temperature 98.7 F Pulse Rate 98 H 105 H 110 H Respiratory Rate 14 16 18 Blood Pressure 135/66 133/65 Pulse Oximetry 100 100 98 05/14/18 18:00 05/14/18 19:00 05/14/18 20:00 Temperature Pulse Rate 106 H 109 H 117 H Respiratory Rate 14 13 16 Blood Pressure 138/64 140/71 145/78 H Pulse Oximetry 99 97 98 05/14/18 20:09 05/14/18 21:00 05/14/18 22:00 Temperature Pulse Rate 104 H 110 H Respiratory Rate 16 23 Blood Pressure 143/67 H 146/73 H Pulse Oximetry 96 98 99 05/14/18 23:00 05/15/18 00:00 05/15/18 00:05 Temperature Pulse Rate 106 H 105 H 107 H Respiratory Rate 16 21 14 Blood Pressure 138/99 H 135/100 H Pulse Oximetry 99 98 98 05/15/18 00:07 05/15/18 01:00 05/15/18 02:00 Temperature Pulse Rate 101 H 107 H 101 H Respiratory Rate 13 22 18 Blood Pressure 142/70 H 146/82 H 143/68 H Pulse Oximetry 97 99 96 05/15/18 03:00 05/15/18 04:00 05/15/18 05:00 Temperature Pulse Rate 106 H 100 H 86 Respiratory Rate 21 15 20 Blood Pressure 139/82 148/67 H 152/67 H Pulse Oximetry 99 96 98 05/15/18 06:00 05/15/18 07:00 05/15/18 07:11 Temperature Pulse Rate 85 96 H Respiratory Rate 17 24 Blood Pressure 141/66 H 157/114 H Pulse Oximetry 99 97 98 05/15/18 07:22 05/15/18 08:00 05/15/18 09:00 Temperature 99.5 F Pulse Rate 80 86 83 Respiratory Rate 18 17 20 Blood Pressure 129/65 132/60 Pulse Oximetry 96 97 100 05/15/18 09:09 05/15/18 10:00 05/15/18 11:00 Temperature Pulse Rate 75 71 80 Respiratory Rate 16 11 L 26 H Blood Pressure 121/70 120/63 148/74 H Pulse Oximetry 100 99 100 05/15/18 12:00 05/15/18 13:00 05/15/18 14:00 Temperature 99.2 F Pulse Rate 86 76 73 Respiratory Rate 23 16 Blood Pressure 152/91 H 117/67 Pulse Oximetry 100 97 Intake & Output 05/14/18 05/15/18 05/15/18 18:59 06:59 18:59 Intake Total 2682.5 / 2682.5 1322.5 / 1322.5 100 / 100 Output Total 1000 / 1000 1275 / 1275 Balance 1682.5 / 1682.5 47.5 / 47.5 100 / 100 Weight 87.5 kg Intake: IV 2682.5 / 2682.5 1322.5 / 1322.5 100 / 100 D5W/LR Inj 1,000 ML @ 150 mls/ 1000 / 1000 hr IV.CONT .Q6H40M [facility] Rx#: [id number] NovoLIN R (IV Infusion) 100 100 / 100 UNIT In NS Inj 99 ML @ 8 UNITS/ HR 8 mls/hr IV.CONT TITRATE PRN Rx#:[id number] Potassium Acetate Inj 15 MEQ 1022.5 / 1022.5 1022.5 / 1022.5 Sodium Acetate Inj 60 MEQ In D5W Inj 1,000 ML @ 150 mls/hr IV.CONT .Q6H49M [facility] Rx#: [id number] Zosyn 4.5 GM Premix 4.5 gm In 100 / 100 200 / 200 100 / 100 100 ml @ 200 mls/hr IV.SIG Q6H [facility] Rx#:[id number] KCl 20 mEq Premix Inj 20 meq In 200 / 200 100 / 100 100 ml @ 50 mls/hr IV.SIG Q2H PRN Rx#:[id number] Potassium Phosphate Inj 30 MMOL 260 / 260 In NS Inj 250 ML @ 43.333 mls/ hr IV.SIG ONCE ONE Rx#:[id number] Output: Urine 1000 / 1000 Urine Amount (Catheter) 1275 / 1275 Indwelling Urethral Catheter 1275 / 1275 - Urinary Catheter Management Indwelling Urethral Catheter Cath placed during this visit: no <Boni,Castro - Last Filed: 05/15/18 15:43> Results - Labs CBC & Chem 7: 05/15/18 03:10 05/15/18 09:20 Laboratory Results - last 24 hr 05/14/18 05/14/18 05/14/18 10:35 11:27 12:51 WBC RBC Hgb Hct MCV MCH MCHC RDW Plt Count MPV Puncture Site Patient Temperature O2 Saturation ABG pH ABG pCO2 ABG pO2 ABG HCO3 ABG O2 Content ABG Base Excess ABG Methemoglobin Sheldon Test Hemoglobin Carboxyhemoglobin Inspired O2 Critical Value Sodium Potassium Chloride Carbon Dioxide Anion Gap BUN Creatinine Estimated GFR POC Glucose 207 H 189 H 191 H Random Glucose Calcium Phosphorus Magnesium Beta-Hydroxybutyric Acd 05/14/18 05/14/18 05/14/18 12:57 14:30 15:09 WBC RBC Hgb Hct MCV MCH MCHC RDW Plt Count MPV Puncture Site Patient Temperature O2 Saturation ABG pH ABG pCO2 ABG pO2 ABG HCO3 ABG O2 Content ABG Base Excess ABG Methemoglobin Sheldon Test Hemoglobin Carboxyhemoglobin Inspired O2 Critical Value Sodium 158 H* Potassium 3.5 Chloride 125 H Carbon Dioxide 22.0 Anion Gap 11 BUN 17 Creatinine 1.25 H Estimated GFR 44 L POC Glucose 190 H 185 H Random Glucose 189 H Calcium 8.9 Phosphorus 0.8 L Magnesium 2.0 Beta-Hydroxybutyric Acd 3.75 H D 05/14/18 05/14/18 05/14/18 16:26 17:24 17:59 WBC RBC Hgb Hct MCV MCH MCHC RDW Plt Count MPV Puncture Site Patient Temperature O2 Saturation ABG pH ABG pCO2 ABG pO2 ABG HCO3 ABG O2 Content ABG Base Excess ABG Methemoglobin Sheldon Test Hemoglobin Carboxyhemoglobin Inspired O2 Critical Value Sodium Potassium Chloride Carbon Dioxide Anion Gap BUN Creatinine Estimated GFR POC Glucose 233 H 247 H 204 H Random Glucose Calcium Phosphorus Magnesium Beta-Hydroxybutyric Acd 05/14/18 05/14/18 05/14/18 18:44 20:10 21:05 WBC RBC Hgb Hct MCV MCH MCHC RDW Plt Count MPV Puncture Site Patient Temperature O2 Saturation ABG pH ABG pCO2 ABG pO2 ABG HCO3 ABG O2 Content ABG Base Excess ABG Methemoglobin Sheldon Test Hemoglobin Carboxyhemoglobin Inspired O2 Critical Value Sodium Potassium Chloride Carbon Dioxide Anion Gap BUN Creatinine Estimated GFR POC Glucose 182 H 215 H 185 H Random Glucose Calcium Phosphorus Magnesium Beta-Hydroxybutyric Acd 05/14/18 05/14/18 05/14/18 21:19 22:05 23:07 WBC RBC Hgb Hct MCV MCH MCHC RDW Plt Count MPV Puncture Site Patient Temperature O2 Saturation ABG pH ABG pCO2 ABG pO2 ABG HCO3 ABG O2 Content ABG Base Excess ABG Methemoglobin Sheldon Test Hemoglobin Carboxyhemoglobin Inspired O2 Critical Value Sodium 156 H* Potassium 3.1 L Chloride 121 H Carbon Dioxide 24.9 Anion Gap 10 BUN 15 Creatinine 1.16 H Estimated GFR 48 L POC Glucose 188 H 156 H Random Glucose 190 H Calcium 9.1 Phosphorus 0.6 L Magnesium 2.0 Beta-Hydroxybutyric Acd 05/15/18 05/15/18 05/15/18 00:06 01:17 01:46 WBC RBC Hgb Hct MCV MCH MCHC RDW Plt Count MPV Puncture Site Patient Temperature O2 Saturation ABG pH ABG pCO2 ABG pO2 ABG HCO3 ABG O2 Content ABG Base Excess ABG Methemoglobin Sheldon Test Hemoglobin Carboxyhemoglobin Inspired O2 Critical Value Sodium Potassium Chloride Carbon Dioxide Anion Gap BUN Creatinine Estimated GFR POC Glucose 158 H 120 H 95 Random Glucose Calcium Phosphorus Magnesium Beta-Hydroxybutyric Acd 05/15/18 05/15/18 05/15/18 02:38 03:10 03:10 WBC 12.2 H RBC 4.44 Hgb 13.5 Hct 37.2 MCV 83.9 D MCH 30.4 MCHC 36.2 H RDW 16.1 Plt Count 223 MPV 8.3 Puncture Site Patient Temperature O2 Saturation ABG pH ABG pCO2 ABG pO2 ABG HCO3 ABG O2 Content ABG Base Excess ABG Methemoglobin Sheldon Test Hemoglobin Carboxyhemoglobin Inspired O2 Critical Value Sodium 157 H* Potassium 3.4 L Chloride 117 H Carbon Dioxide 26.3 Anion Gap 14 BUN 13 Creatinine 1.00 Estimated GFR 57 L POC Glucose 139 H Random Glucose 162 H Calcium 8.8 Phosphorus 0.7 L Magnesium 2.1 Beta-Hydroxybutyric Acd 3.31 H D 05/15/18 05/15/18 05/15/18 03:14 04:05 04:12 WBC RBC Hgb Hct MCV MCH MCHC RDW Plt Count MPV Puncture Site Right radial Patient Temperature 98.6 O2 Saturation 94 ABG pH 7.46 H ABG pCO2 33 L ABG pO2 85 ABG HCO3 23 ABG O2 Content 17.4 ABG Base Excess -0.2 ABG Methemoglobin 1.6 Sheldon Test Present Hemoglobin 13.0 Carboxyhemoglobin 1.7 Inspired O2 21 Critical Value No Sodium Potassium Chloride Carbon Dioxide Anion Gap BUN Creatinine Estimated GFR POC Glucose 171 H 208 H Random Glucose Calcium Phosphorus Magnesium Beta-Hydroxybutyric Acd 05/15/18 05/15/18 05/15/18 05:05 06:04 07:23 WBC RBC Hgb Hct MCV MCH MCHC RDW Plt Count MPV Puncture Site Patient Temperature O2 Saturation ABG pH ABG pCO2 ABG pO2 ABG HCO3 ABG O2 Content ABG Base Excess ABG Methemoglobin Sheldon Test Hemoglobin Carboxyhemoglobin Inspired O2 Critical Value Sodium Potassium Chloride Carbon Dioxide Anion Gap BUN Creatinine Estimated GFR POC Glucose 213 H 202 H 173 H Random Glucose Calcium Phosphorus Magnesium Beta-Hydroxybutyric Acd 05/15/18 05/15/18 05/15/18 08:12 09:11 09:20 WBC RBC Hgb Hct MCV MCH MCHC RDW Plt Count MPV Puncture Site Patient Temperature O2 Saturation ABG pH ABG pCO2 ABG pO2 ABG HCO3 ABG O2 Content ABG Base Excess ABG Methemoglobin Sheldon Test Hemoglobin Carboxyhemoglobin Inspired O2 Critical Value Sodium 155 H Potassium 3.1 L Chloride 118 H Carbon Dioxide 29.1 Anion Gap 8 BUN 14 Creatinine 1.00 Estimated GFR 57 L POC Glucose 151 H 150 H Random Glucose 145 H Calcium 8.9 Phosphorus 0.9 L Magnesium 1.9 Beta-Hydroxybutyric Acd 1.81 H D Microbiology 05/13/18 11:30 Catheterized Urine Urine Culture - Final No growth in 48 hours 05/13/18 17:27 Blood - Peripheral Aerobic Blood Culture - Preliminary No growth in 1 day 05/13/18 17:27 Blood - Peripheral Anaerobic Blood Culture - Preliminary No growth in 1 day 05/13/18 17:22 Blood - Peripheral Aerobic Blood Culture - Preliminary No growth in 1 day 05/13/18 17:22 Blood - Peripheral Anaerobic Blood Culture - Preliminary No growth in 1 day - Imaging Impressions Head MRI 05/14/18 00:00 CONCLUSION: 1. Negative MR Brain non contrast. <Jennifer Chan - Last Filed: 05/15/18 10:46> - Labs CBC & Chem 7: 05/15/18 03:10 05/15/18 09:20 Laboratory Results - last 24 hr 05/14/18 05/14/18 05/14/18 16:26 17:24 17:59 WBC RBC Hgb Hct MCV MCH MCHC RDW Plt Count MPV Puncture Site Patient Temperature O2 Saturation ABG pH ABG pCO2 ABG pO2 ABG HCO3 ABG O2 Content ABG Base Excess ABG Methemoglobin Sheldon Test Hemoglobin Carboxyhemoglobin Inspired O2 Critical Value Sodium Potassium Chloride Carbon Dioxide Anion Gap BUN Creatinine Estimated GFR POC Glucose 233 H 247 H 204 H Random Glucose Calcium Phosphorus Magnesium Ammonia Beta-Hydroxybutyric Acd 05/14/18 05/14/18 05/14/18 18:44 20:10 21:05 WBC RBC Hgb Hct MCV MCH MCHC RDW Plt Count MPV Puncture Site Patient Temperature O2 Saturation ABG pH ABG pCO2 ABG pO2 ABG HCO3 ABG O2 Content ABG Base Excess ABG Methemoglobin Sheldon Test Hemoglobin Carboxyhemoglobin Inspired O2 Critical Value Sodium Potassium Chloride Carbon Dioxide Anion Gap BUN Creatinine Estimated GFR POC Glucose 182 H 215 H 185 H Random Glucose Calcium Phosphorus Magnesium Ammonia Beta-Hydroxybutyric Acd 05/14/18 05/14/18 05/14/18 21:19 22:05 23:07 WBC RBC Hgb Hct MCV MCH MCHC RDW Plt Count MPV Puncture Site Patient Temperature O2 Saturation ABG pH ABG pCO2 ABG pO2 ABG HCO3 ABG O2 Content ABG Base Excess ABG Methemoglobin Sheldon Test Hemoglobin Carboxyhemoglobin Inspired O2 Critical Value Sodium 156 H* Potassium 3.1 L Chloride 121 H Carbon Dioxide 24.9 Anion Gap 10 BUN 15 Creatinine 1.16 H Estimated GFR 48 L POC Glucose 188 H 156 H Random Glucose 190 H Calcium 9.1 Phosphorus 0.6 L Magnesium 2.0 Ammonia Beta-Hydroxybutyric Acd 05/15/18 05/15/18 05/15/18 00:06 01:17 01:46 WBC RBC Hgb Hct MCV MCH MCHC RDW Plt Count MPV Puncture Site Patient Temperature O2 Saturation ABG pH ABG pCO2 ABG pO2 ABG HCO3 ABG O2 Content ABG Base Excess ABG Methemoglobin Sheldon Test Hemoglobin Carboxyhemoglobin Inspired O2 Critical Value Sodium Potassium Chloride Carbon Dioxide Anion Gap BUN Creatinine Estimated GFR POC Glucose 158 H 120 H 95 Random Glucose Calcium Phosphorus Magnesium Ammonia Beta-Hydroxybutyric Acd 05/15/18 05/15/18 05/15/18 02:38 03:10 03:10 WBC 12.2 H RBC 4.44 Hgb 13.5 Hct 37.2 MCV 83.9 D MCH 30.4 MCHC 36.2 H RDW 16.1 Plt Count 223 MPV 8.3 Puncture Site Patient Temperature O2 Saturation ABG pH ABG pCO2 ABG pO2 ABG HCO3 ABG O2 Content ABG Base Excess ABG Methemoglobin Sheldon Test Hemoglobin Carboxyhemoglobin Inspired O2 Critical Value Sodium 157 H* Potassium 3.4 L Chloride 117 H Carbon Dioxide 26.3 Anion Gap 14 BUN 13 Creatinine 1.00 Estimated GFR 57 L POC Glucose 139 H Random Glucose 162 H Calcium 8.8 Phosphorus 0.7 L Magnesium 2.1 Ammonia Beta-Hydroxybutyric Acd 3.31 H D 05/15/18 05/15/18 05/15/18 03:14 04:05 04:12 WBC RBC Hgb Hct MCV MCH MCHC RDW Plt Count MPV Puncture Site Right radial Patient Temperature 98.6 O2 Saturation 94 ABG pH 7.46 H ABG pCO2 33 L ABG pO2 85 ABG HCO3 23 ABG O2 Content 17.4 ABG Base Excess -0.2 ABG Methemoglobin 1.6 Sheldon Test Present Hemoglobin 13.0 Carboxyhemoglobin 1.7 Inspired O2 21 Critical Value No Sodium Potassium Chloride Carbon Dioxide Anion Gap BUN Creatinine Estimated GFR POC Glucose 171 H 208 H Random Glucose Calcium Phosphorus Magnesium Ammonia Beta-Hydroxybutyric Acd 05/15/18 05/15/18 05/15/18 05:05 06:04 07:23 WBC RBC Hgb Hct MCV MCH MCHC RDW Plt Count MPV Puncture Site Patient Temperature O2 Saturation ABG pH ABG pCO2 ABG pO2 ABG HCO3 ABG O2 Content ABG Base Excess ABG Methemoglobin Sheldon Test Hemoglobin Carboxyhemoglobin Inspired O2 Critical Value Sodium Potassium Chloride Carbon Dioxide Anion Gap BUN Creatinine Estimated GFR POC Glucose 213 H 202 H 173 H Random Glucose Calcium Phosphorus Magnesium Ammonia Beta-Hydroxybutyric Acd 05/15/18 05/15/18 05/15/18 08:12 09:11 09:20 WBC RBC Hgb Hct MCV MCH MCHC RDW Plt Count MPV Puncture Site Patient Temperature O2 Saturation ABG pH ABG pCO2 ABG pO2 ABG HCO3 ABG O2 Content ABG Base Excess ABG Methemoglobin Sheldon Test Hemoglobin Carboxyhemoglobin Inspired O2 Critical Value Sodium 155 H Potassium 3.1 L Chloride 118 H Carbon Dioxide 29.1 Anion Gap 8 BUN 14 Creatinine 1.00 Estimated GFR 57 L POC Glucose 151 H 150 H Random Glucose 145 H Calcium 8.9 Phosphorus 0.9 L Magnesium 1.9 Ammonia Beta-Hydroxybutyric Acd 1.81 H D 05/15/18 05/15/18 11:46 12:55 WBC RBC Hgb Hct MCV MCH MCHC RDW Plt Count MPV Puncture Site Patient Temperature O2 Saturation ABG pH ABG pCO2 ABG pO2 ABG HCO3 ABG O2 Content ABG Base Excess ABG Methemoglobin Sheldon Test Hemoglobin Carboxyhemoglobin Inspired O2 Critical Value Sodium Potassium Chloride Carbon Dioxide Anion Gap BUN Creatinine Estimated GFR POC Glucose 199 H Random Glucose Calcium Phosphorus Magnesium Ammonia 30 Beta-Hydroxybutyric Acd Microbiology 05/13/18 17:27 Blood - Peripheral Aerobic Blood Culture - Preliminary No growth in 2 days 05/13/18 17:27 Blood - Peripheral Anaerobic Blood Culture - Preliminary No growth in 2 days 05/13/18 17:22 Blood - Peripheral Aerobic Blood Culture - Preliminary No growth in 2 days 05/13/18 17:22 Blood - Peripheral Anaerobic Blood Culture - Preliminary No growth in 2 days 05/13/18 11:30 Catheterized Urine Urine Culture - Final No growth in 48 hours <Matthew Plata - Last Filed: 05/15/18 15:43> Assessment and Plan (1) Nausea & vomiting Status: Acute Code(s): R11.2 - Nausea with vomiting, unspecified - Plan 05/13/2018 status post EGD on 05/12/2018 Patient with nausea and vomiting with a recent history of a gastric sleeve Endoscopy showing Shafer gastritis biopsies pending Agree with current supportive care Recommend aggressive hydration Monitor labs Continue with anti-emetics Low residue diet when patient is able Further recommendations she will depend on her hospital course Ms. Gandhi is a 57-year-old female who presented to the emergency room today with complaint of difficulty swallowing solid food and liquids with persistent nausea and vomiting over the last 2-3 days. Patient's history significant for gastric sleeve gastrectomy on March 06, 2018. Patient takes PPI as home medication and reports that she has been taking same without interruption. She denies use of any blood thinners. Patient n.p.o. at this time. She reports last EGD done prior to gastric sleeve surgery. Last colonoscopy done at age 48 per patient with no abnormalities found at that time. Patient denies any noted blood in emesis or stools. States she has a bowel movement every 3-4 days and that is her norm. Patient denies any abdominal pain. She endorses increasing generalized weakness over the last few days which she attributes to the nausea and vomiting. This practice has been consulted to evaluate patient for dysphagia, nausea and vomiting. Plan for EGD today. Procedure discussed with patient who verbalizes agreement and understanding. 05/14/2018 patient is continues to rest in the intensive care setting but appears to be very drowsy at this time status post recent pain medication patient does note some nausea but no vomiting and no abdominal pain current hemoglobin 13.5, WBC count decreased to 15.8. Still appears to have some generalized weakness and fatigue. Pangastritis per EGD 05/15/2018, for the most part patient's eyes are closed and she is moaning off and on. is in the room supporting her, she does show some response to opening her mouth when nurse is brushing her teeth. Current hemoglobin 13.5 no obvious bleeding, mild decrease in WBC count 12.2. Still taking no p.o. fluids or food, continue hydration at 100 cc an hour for now and good urine output noted. Also monitoring bowel regimen. Surgical notes reviewed for nutrition, recommendation was for Dobbhoff if patient does not start taking p.o. fluids or become more alert. No current pain medicine being taken. Low-grade fever 99.5. GI monitoring symptoms for shafer gastritis seen on EGD, patient is also status post gastric sleeve with poor emptying noted per surgical notes but no obstruction. Plan: Diet, consider low residue diet when patient can tolerate, and clear liquids,( patient taken no p.o. liquids or food for now) Biopsies pending Dulcolax suppository today, no documented bowel movement since admission Monitor labs Monitor symptoms of nausea and vomiting and any obvious bleeding PPI drip Supportive care This patient has been seen by myself and Dr. Plata, this note is written on his behalf <Jennifer Chan - Last Filed: 05/15/18 10:46> (1) Nausea & vomiting Status: Acute Code(s): R11.2 - Nausea with vomiting, unspecified - Plan Seen and examined with DRAPERY AND UPHOLSTERY ESTIMATOR, unclear reason for encephalopathy. Ammonia levels ordered. Place NGT. Reglan 10mg 1vp tid. DC phenergan. Discussed with family at bedside. The exam, history, and the medical decision-making described in the above note were completed with the assistance of the mid-level provider. I reviewed and agree with the findings presented. I attest that I had a [id number] encounter with the patient on the same day, and personally performed and documented my assessment and findings in the medical record. <Matthew Plata - Last Filed: 05/15/18 15:43>
[2018-05-15] MEDS ORDERED: Bisacodyl 10 MG Supp RECTAL ONE (11:00)
--- NOTE | 2018-05-15 11:02 | P.PNCC ---
Subjective Subjective Remarks/Hospital Course: Hospital Course: 57yF who presents by rapid response for acute altered mentation. per chart review, she had a gastric sleeve in 02/2018 and has had recent dysphagia. gastrographin swallow demonstrated delayed movement of contrast through the gastric sleeve, but EGD did not demonstrate any strictures. She was admitted with an anion gap of 21 and given iv fluids. she has a history of diabetes and has been npo with glucose of 285 mg/dL on my evaluation. Per nursing report, she never returned back to neurologic baseline after anesthesia for EGD. this morning, ABG was ordered with was 6.9/137 with BE -28 and a calculated bicarb of 2. She arrives in acute distress. ROS unobtainable due to mental status. emergently given 4L LR and 1 amp bicarb. CXR and KUB did not demonstrate free air. no additional information is available from the patient. Subjective: 05/14: improvements in metabolic derrangements, but remains in DKA and acidotic. mental status is also a continued concern: she arouses to voice but only repeats "yeah". does not follow commands. briskly purposeful. 05/15: persistently encephalopathic. MRI without acute disease. anion gap closed : transitioned to SSI. given degree of acidosis, it may take days to resolve encephalopathy. Objective Vital Signs / I&O: Vital Signs 05/14/18 12:00 05/14/18 16:00 05/14/18 16:37 Temperature 37.0 C 37.1 C Pulse Rate 109 H 98 H 105 H Respiratory Rate 20 14 16 Blood Pressure 127/63 135/66 Pulse Oximetry 98 100 100 05/14/18 17:00 05/14/18 18:00 05/14/18 19:00 Temperature Pulse Rate 110 H 106 H 109 H Respiratory Rate 18 14 13 Blood Pressure 133/65 138/64 140/71 Pulse Oximetry 98 99 97 05/14/18 20:00 05/14/18 20:09 05/14/18 21:00 Temperature Pulse Rate 117 H 104 H Respiratory Rate 16 16 Blood Pressure 145/78 H 143/67 H Pulse Oximetry 98 96 98 05/14/18 22:00 05/14/18 23:00 05/15/18 00:00 Temperature Pulse Rate 110 H 106 H 105 H Respiratory Rate 23 16 21 Blood Pressure 146/73 H 138/99 H Pulse Oximetry 99 99 98 05/15/18 00:05 05/15/18 00:07 05/15/18 01:00 Temperature Pulse Rate 107 H 101 H 107 H Respiratory Rate 14 13 22 Blood Pressure 135/100 H 142/70 H 146/82 H Pulse Oximetry 98 97 99 05/15/18 02:00 05/15/18 03:00 05/15/18 04:00 Temperature Pulse Rate 101 H 106 H 100 H Respiratory Rate 18 21 15 Blood Pressure 143/68 H 139/82 148/67 H Pulse Oximetry 96 99 96 05/15/18 05:00 05/15/18 06:00 05/15/18 07:00 Temperature Pulse Rate 86 85 96 H Respiratory Rate 20 17 24 Blood Pressure 152/67 H 141/66 H 157/114 H Pulse Oximetry 98 99 97 05/15/18 07:11 05/15/18 07:22 05/15/18 08:00 Temperature 37.5 C Pulse Rate 80 86 Respiratory Rate 18 17 Blood Pressure 129/65 132/60 Pulse Oximetry 98 96 97 05/15/18 10:00 Temperature Pulse Rate 61 Respiratory Rate Blood Pressure Pulse Oximetry Intake & Output 05/14/18 05/15/18 05/15/18 18:59 06:59 18:59 Intake Total 2682.5 / 2682.5 1322.5 / 1322.5 100 / 100 Output Total 1000 / 1000 1275 / 1275 Balance 1682.5 / 1682.5 47.5 / 47.5 100 / 100 Weight 87.5 kg Intake: IV 2682.5 / 2682.5 1322.5 / 1322.5 100 / 100 D5W/LR Inj 1,000 ML @ 150 mls/ 1000 / 1000 hr IV.CONT .Q6H40M [facility] Rx#: [id number] NovoLIN R (IV Infusion) 100 100 / 100 UNIT In NS Inj 99 ML @ 8 UNITS/ HR 8 mls/hr IV.CONT TITRATE PRN Rx#:[id number] Potassium Acetate Inj 15 MEQ 1022.5 / 1022.5 1022.5 / 1022.5 Sodium Acetate Inj 60 MEQ In D5W Inj 1,000 ML @ 150 mls/hr IV.CONT .Q6H49M [facility] Rx#: [id number] Zosyn 4.5 GM Premix 4.5 gm In 100 / 100 200 / 200 100 / 100 100 ml @ 200 mls/hr IV.SIG Q6H [facility] Rx#:[id number] KCl 20 mEq Premix Inj 20 meq In 200 / 200 100 / 100 100 ml @ 50 mls/hr IV.SIG Q2H PRN Rx#:[id number] Potassium Phosphate Inj 30 MMOL 260 / 260 In NS Inj 250 ML @ 43.333 mls/ hr IV.SIG ONCE ONE Rx#:[id number] Output: Urine 1000 / 1000 Urine Amount (Catheter) 1275 / 1275 Indwelling Urethral Catheter 1275 / 1275 Result Diagrams: 05/15/18 03:10 05/15/18 09:20 Objective Remarks: gen: middle-aged female, altered. heent: nc. at. perrl. mucous membranes moist neck: no jvd. trachea midline. chest: room air. improved respirations. no accessory muscle use today. cv: normal rate, regular rhythm. sinus. abd: soft, mildly distended, nontender, no guarding or rebound. extr: no edema. distal pulses 2+. improved cap refill. neuro: RASS -2. arouses to loud voice. does not follow commands. repeats "yeah" . briskly purposeful. moves all extremities. Assessment and Plan - Assessment and Plan Plan: Assessment: 57yF s/p gastric sleeve in 02/2018 presented with severe life- threatening anion-gap metabolic acidosis, dehydration, diabetic ketoacidosis. continues to improve, though mental status continues to lag behind metabolic improvements. transition off insulin drip. Neuro: Acute metabolic encephalopathy- improving but persistent. - likely secondary to metabolic derangements - frequent neuro checks - avoid long-acting sedatives - MRI brain today. Resp: Kussmaul respirations- resolved Respiratory distress- resolved Acute hypoxemia- resolved - wean o2 by pa for goal spo2 > 90% - CT chest without evidence of infection. CV: Sinus tachycardia- resolved - likely secondary to dehydration - mivf Renal: Acute kidney injury- resolved - likely secondary to severe dehydration - d/c jones. - strict i/o's - mivf - daily bmp FEN/GI: Severe life-threatening anion-gap metabolic acidosis- resolved s/p gastric sleeve 02/2018 acute dysphagia Severe dehydration- resolving Acute intravascular volume depletion- resolving. hypokalemia- persistent despite replacement Hypernatremia- persistent. Hypophosphatemia- persistent - full liquid diet per GI, but mental status prevents safe feeding - change mivf to D5-1/2NS + 20 kcl @ 100cc/hr. - trend electrolytes - ICU electrolyte protocol - aggressive K replacement - aggressive phos replacement. - serial bmp, mg, phos Heme/ID: Sepsis is ruled out. - d/c zosyn - cultures negative at 48h - no infectious etiology now suspected. - CXR/CT not consistent with aspiration - blood and urine cultures NG. Endo: Diabetes DKA- resolved - transition to levemir and SSI. - q4h accuchecks. Prophylaxis: SCDs SQH Lines: piv d/c robert. Dispo: if mental status improves, can transition out of ICU.
[2018-05-15] MEDS ORDERED: Erythromycin Inj 250 MG in Sodium Chlor 0.9% Inj 100 ML IV.SIG SCH (14:00)
[2018-05-15 15:52] LABS: Calcium 8.3 mg/dL (8.5-10.1); Carbon Dioxide 25.9 meq/L (21.0-32.0); Magnesium 1.9 mg/dL (1.5-2.5); Phosphorus 1.5 mg/dL (2.5-4.9)
[2018-05-15 16:16] LABS: Potassium 2.8 meq/L (3.5-5.1)
--- NOTE | 2018-05-15 17:15 | P.PNGS ---
Subjective Patient reports: bowel movement Physical Exam Vital signs: Vital Signs 05/14/18 18:00 05/14/18 19:00 05/14/18 20:00 Temperature Pulse Rate 106 H 109 H 117 H Respiratory Rate 14 13 16 Blood Pressure 138/64 140/71 145/78 H Pulse Oximetry 99 97 98 05/14/18 20:09 05/14/18 21:00 05/14/18 22:00 Temperature Pulse Rate 104 H 110 H Respiratory Rate 16 23 Blood Pressure 143/67 H 146/73 H Pulse Oximetry 96 98 99 05/14/18 23:00 05/15/18 00:00 05/15/18 00:05 Temperature Pulse Rate 106 H 105 H 107 H Respiratory Rate 16 21 14 Blood Pressure 138/99 H 135/100 H Pulse Oximetry 99 98 98 05/15/18 00:07 05/15/18 01:00 05/15/18 02:00 Temperature Pulse Rate 101 H 107 H 101 H Respiratory Rate 13 22 18 Blood Pressure 142/70 H 146/82 H 143/68 H Pulse Oximetry 97 99 96 05/15/18 03:00 05/15/18 04:00 05/15/18 05:00 Temperature Pulse Rate 106 H 100 H 86 Respiratory Rate 21 15 20 Blood Pressure 139/82 148/67 H 152/67 H Pulse Oximetry 99 96 98 05/15/18 06:00 05/15/18 07:00 05/15/18 07:11 Temperature Pulse Rate 85 96 H Respiratory Rate 17 24 Blood Pressure 141/66 H 157/114 H Pulse Oximetry 99 97 98 05/15/18 07:22 05/15/18 08:00 05/15/18 09:00 Temperature 99.5 F Pulse Rate 80 86 83 Respiratory Rate 18 17 20 Blood Pressure 129/65 132/60 Pulse Oximetry 96 97 100 05/15/18 09:09 05/15/18 10:00 05/15/18 11:00 Temperature Pulse Rate 75 71 80 Respiratory Rate 16 11 L 26 H Blood Pressure 121/70 120/63 148/74 H Pulse Oximetry 100 99 100 05/15/18 12:00 05/15/18 13:00 05/15/18 14:00 Temperature 99.2 F Pulse Rate 86 76 73 Respiratory Rate 23 16 12 Blood Pressure 152/91 H 117/67 163/77 H Pulse Oximetry 100 97 96 05/15/18 15:00 05/15/18 16:00 05/15/18 17:00 Temperature 98.7 F Pulse Rate 89 94 H 86 Respiratory Rate 17 22 16 Blood Pressure 160/76 H 151/75 H 155/78 H Pulse Oximetry 96 98 96 Intake & Output 05/14/18 05/15/18 05/15/18 18:59 06:59 18:59 Intake Total 2682.5 / 2682.5 1322.5 / 1322.5 100 / 100 Output Total 1000 / 1000 1275 / 1275 Balance 1682.5 / 1682.5 47.5 / 47.5 100 / 100 Weight 87.5 kg Intake: IV 2682.5 / 2682.5 1322.5 / 1322.5 100 / 100 D5W/LR Inj 1,000 ML @ 150 mls/ 1000 / 1000 hr IV.CONT .Q6H40M [facility] Rx#: [id number] NovoLIN R (IV Infusion) 100 100 / 100 UNIT In NS Inj 99 ML @ 8 UNITS/ HR 8 mls/hr IV.CONT TITRATE PRN Rx#:[id number] Potassium Acetate Inj 15 MEQ 1022.5 / 1022.5 1022.5 / 1022.5 Sodium Acetate Inj 60 MEQ In D5W Inj 1,000 ML @ 150 mls/hr IV.CONT .Q6H49M [facility] Rx#: [id number] Zosyn 4.5 GM Premix 4.5 gm In 100 / 100 200 / 200 100 / 100 100 ml @ 200 mls/hr IV.SIG Q6H [facility] Rx#:[id number] KCl 20 mEq Premix Inj 20 meq In 200 / 200 100 / 100 100 ml @ 50 mls/hr IV.SIG Q2H [facility] Rx#:[id number] Potassium Phosphate Inj 30 MMOL 260 / 260 In NS Inj 250 ML @ 43.333 mls/ hr IV.SIG ONCE ONE Rx#:[id number] Output: Urine 1000 / 1000 Urine Amount (Catheter) 1275 / 1275 Indwelling Urethral Catheter 1275 / 1275 - Constitutional mild distress - Routine HEENT Exam Head: Present: normocephalic Eye: Present: EOMI - Routine Neck Exam Present: supple - Routine Cardiovascular Exam Present: RRR, S1, S2 - Routine Abdominal Exam Present: soft, normoactive bowel sounds - Routine Neurological Exam Present: alert - Detailed Neurological Exam: Coma Scale Eye Opening: Spontaneous - Routine Psychiatric Exam Present: unable to assess - Urinary Catheter Management Indwelling Urethral Catheter Cath placed during this visit: yes, but has since been removed by the nurse Reason for continuing: Decision to DC catheter Insertion date: 05/13/18 Insertion time: 14:35 Removal date: 05/15/18 Removal time: 11:30 Results - Labs 05/15/18 03:10 05/15/18 15:01 Laboratory Results - last 24 hr 05/14/18 05/14/18 05/14/18 17:24 17:59 18:44 WBC RBC Hgb Hct MCV MCH MCHC RDW Plt Count MPV Puncture Site Patient Temperature O2 Saturation ABG pH ABG pCO2 ABG pO2 ABG HCO3 ABG O2 Content ABG Base Excess ABG Methemoglobin Sheldon Test Hemoglobin Carboxyhemoglobin Inspired O2 Critical Value Sodium Potassium Chloride Carbon Dioxide Anion Gap BUN Creatinine Estimated GFR POC Glucose 247 H 204 H 182 H Random Glucose Calcium Phosphorus Magnesium Ammonia Beta-Hydroxybutyric Acd 05/14/18 05/14/18 05/14/18 20:10 21:05 21:19 WBC RBC Hgb Hct MCV MCH MCHC RDW Plt Count MPV Puncture Site Patient Temperature O2 Saturation ABG pH ABG pCO2 ABG pO2 ABG HCO3 ABG O2 Content ABG Base Excess ABG Methemoglobin Sheldon Test Hemoglobin Carboxyhemoglobin Inspired O2 Critical Value Sodium 156 H* Potassium 3.1 L Chloride 121 H Carbon Dioxide 24.9 Anion Gap 10 BUN 15 Creatinine 1.16 H Estimated GFR 48 L POC Glucose 215 H 185 H Random Glucose 190 H Calcium 9.1 Phosphorus 0.6 L Magnesium 2.0 Ammonia Beta-Hydroxybutyric Acd 05/14/18 05/14/18 05/15/18 22:05 23:07 00:06 WBC RBC Hgb Hct MCV MCH MCHC RDW Plt Count MPV Puncture Site Patient Temperature O2 Saturation ABG pH ABG pCO2 ABG pO2 ABG HCO3 ABG O2 Content ABG Base Excess ABG Methemoglobin Sheldon Test Hemoglobin Carboxyhemoglobin Inspired O2 Critical Value Sodium Potassium Chloride Carbon Dioxide Anion Gap BUN Creatinine Estimated GFR POC Glucose 188 H 156 H 158 H Random Glucose Calcium Phosphorus Magnesium Ammonia Beta-Hydroxybutyric Acd 05/15/18 05/15/18 05/15/18 01:17 01:46 02:38 WBC RBC Hgb Hct MCV MCH MCHC RDW Plt Count MPV Puncture Site Patient Temperature O2 Saturation ABG pH ABG pCO2 ABG pO2 ABG HCO3 ABG O2 Content ABG Base Excess ABG Methemoglobin Sheldon Test Hemoglobin Carboxyhemoglobin Inspired O2 Critical Value Sodium Potassium Chloride Carbon Dioxide Anion Gap BUN Creatinine Estimated GFR POC Glucose 120 H 95 139 H Random Glucose Calcium Phosphorus Magnesium Ammonia Beta-Hydroxybutyric Acd 05/15/18 05/15/18 05/15/18 03:10 03:10 03:14 WBC 12.2 H RBC 4.44 Hgb 13.5 Hct 37.2 MCV 83.9 D MCH 30.4 MCHC 36.2 H RDW 16.1 Plt Count 223 MPV 8.3 Puncture Site Patient Temperature O2 Saturation ABG pH ABG pCO2 ABG pO2 ABG HCO3 ABG O2 Content ABG Base Excess ABG Methemoglobin Sheldon Test Hemoglobin Carboxyhemoglobin Inspired O2 Critical Value Sodium 157 H* Potassium 3.4 L Chloride 117 H Carbon Dioxide 26.3 Anion Gap 14 BUN 13 Creatinine 1.00 Estimated GFR 57 L POC Glucose 171 H Random Glucose 162 H Calcium 8.8 Phosphorus 0.7 L Magnesium 2.1 Ammonia Beta-Hydroxybutyric Acd 3.31 H D 05/15/18 05/15/18 05/15/18 04:05 04:12 05:05 WBC RBC Hgb Hct MCV MCH MCHC RDW Plt Count MPV Puncture Site Right radial Patient Temperature 98.6 O2 Saturation 94 ABG pH 7.46 H ABG pCO2 33 L ABG pO2 85 ABG HCO3 23 ABG O2 Content 17.4 ABG Base Excess -0.2 ABG Methemoglobin 1.6 Sheldon Test Present Hemoglobin 13.0 Carboxyhemoglobin 1.7 Inspired O2 21 Critical Value No Sodium Potassium Chloride Carbon Dioxide Anion Gap BUN Creatinine Estimated GFR POC Glucose 208 H 213 H Random Glucose Calcium Phosphorus Magnesium Ammonia Beta-Hydroxybutyric Acd 05/15/18 05/15/18 05/15/18 06:04 07:23 08:12 WBC RBC Hgb Hct MCV MCH MCHC RDW Plt Count MPV Puncture Site Patient Temperature O2 Saturation ABG pH ABG pCO2 ABG pO2 ABG HCO3 ABG O2 Content ABG Base Excess ABG Methemoglobin Sheldon Test Hemoglobin Carboxyhemoglobin Inspired O2 Critical Value Sodium Potassium Chloride Carbon Dioxide Anion Gap BUN Creatinine Estimated GFR POC Glucose 202 H 173 H 151 H Random Glucose Calcium Phosphorus Magnesium Ammonia Beta-Hydroxybutyric Acd 05/15/18 05/15/18 05/15/18 09:11 09:20 11:46 WBC RBC Hgb Hct MCV MCH MCHC RDW Plt Count MPV Puncture Site Patient Temperature O2 Saturation ABG pH ABG pCO2 ABG pO2 ABG HCO3 ABG O2 Content ABG Base Excess ABG Methemoglobin Sheldon Test Hemoglobin Carboxyhemoglobin Inspired O2 Critical Value Sodium 155 H Potassium 3.1 L Chloride 118 H Carbon Dioxide 29.1 Anion Gap 8 BUN 14 Creatinine 1.00 Estimated GFR 57 L POC Glucose 150 H 199 H Random Glucose 145 H Calcium 8.9 Phosphorus 0.9 L Magnesium 1.9 Ammonia Beta-Hydroxybutyric Acd 1.81 H D 05/15/18 05/15/18 12:55 15:01 WBC RBC Hgb Hct MCV MCH MCHC RDW Plt Count MPV Puncture Site Patient Temperature O2 Saturation ABG pH ABG pCO2 ABG pO2 ABG HCO3 ABG O2 Content ABG Base Excess ABG Methemoglobin Sheldon Test Hemoglobin Carboxyhemoglobin Inspired O2 Critical Value Sodium 157 H* Potassium 2.8 L* Chloride 117 H Carbon Dioxide 25.9 Anion Gap 14 BUN 13 Creatinine 0.81 Estimated GFR 72 L POC Glucose Random Glucose 185 H Calcium 8.3 L Phosphorus 1.5 L Magnesium 1.9 Ammonia 30 Beta-Hydroxybutyric Acd - Imaging Imaging: ITS Impressions Gastrografin Study 05/12/18 05:51 CONCLUSION: Initial films have suggested obstruction of the sleeve. The sleeve is not obstructed but poorly empties even in the upright position. Abdomen X-Ray 05/13/18 00:00 CONCLUSION: Nonspecific abdomen. Chest X-Ray 05/13/18 10:48 CONCLUSION: Mild interstitial prominence otherwise negative Abdomen/Pelvis CT 05/13/18 12:03 CONCLUSION: 1. No acute findings. Chest CT 05/13/18 12:03 CONCLUSION: 1. Small pericardial effusion and mild dependent atelectasis. 2. Otherwise unremarkable. Head MRI 05/14/18 00:00 CONCLUSION: 1. Negative MR Brain non contrast. Assessment and Plan - Assessment (1) Acidosis, metabolic Code(s): E87.2 - Acidosis Status: Acute Plan: Improving, no longer on insulin gtt. Continue with manager primary management. Start Lovenox. (2) Dysphagia Code(s): R13.10 - Dysphagia, unspecified Status: Acute Plan: Start trickle feeds, glucerna. (3) Nausea & vomiting Code(s): R11.2 - Nausea with vomiting, unspecified Status: Acute Plan: Continue NG until tolerating PO. BM this AM. Protonix gtt. d/c'd. Start Protonix daily. - Plan Pt being hydrated off insulin and protonix gtt. Start IV Protonix 40 mg daily Start Lovenox 40 mg SQ daily Start trickle feeds Glucerna. Cont ICU care (2) Dysphagia Qualifiers: Dysphagia type: unspecified Qualified Code(s): R13.10 - Dysphagia, unspecified
--- NOTE | 2018-05-15 17:48 | XR ---
EXAM DATE: 05/15/2018 5:40 PM EDT AGE/SEX: 57 years / Female INDICATIONS: Evaluate NG tube placement CLINICAL DATA: This is the patient's subsequent encounter. Patient reports that signs and symptoms h ave been present for 4 - 6 days and indicates a pain score of 0/10. MEDICAL/SURGICAL HISTORY: . : Hypertension. Hypercholesterolemia. Diabetes mellitus type II. . Gastric bypass. section. Discectomy, cervical. COMPARISON: [facility], ABDOMEN 1V KUB, 05/13/2018. . FINDINGS: Examination of the abdomen demonstrates a normal bowel gas pattern. The NG tube is entering the stoma ch No free air is identified. No organomegaly is evident. Osseous structures are intact. Dense cont rast in the sigmoid colon. CONCLUSION: The NG tube is barely entering the stomach. Electronically signed by: Raman Morales MD 05/15/2018 5:46 PM EDT
[2018-05-15] MEDS: Enoxaparin Inj 40 MG/0.4 ML Syringe SQ SCH (18:18)
[2018-05-16] MEDS ORDERED: Insulin NovoLOG Aspart Correctional Sugar Inj SQ SCH
[2018-05-16] MEDS: Insulin NovoLOG Aspart Correctional Sugar Inj SQ SCH ×7 (00:05→23:19)
[2018-05-16] MEDS: KCL 20 mEq/D5W/NaCl 0.45% Inj 1,000 ML IV.CONT SCH (02:39)
[2018-05-16 05:03] LABS: Hematocrit 38.7 % (35.0-46.0); Hemoglobin 13.5 gm/dL (11.6-15.3); Mean Corpuscular HGB Conc 34.9 % (32.0-36.0); Mean Corpuscular Hemoglobin 29.4 pg (27.0-34.0); Mean Platelet Volume 7.9 fL (7.0-11.0); Platelet Count 213 th/mm3 (150-450); Red Blood Count 4.61 mil/mm3 (4.00-5.30); White Blood Count 9.2 th/mm3 (4.0-11.0)
[2018-05-16 06:10] LABS: ABG Base Excess 4.7 mmol/L (-2-2); ABG PCO2 43 mmHg (38-42); ABG PO2 73 mmHG (61-120)
[2018-05-16] MEDS: Insulin Detemir Inj 1,000 UNIT/10 ML Vial SQ SCH ×2 (08:30→20:53)
[2018-05-16 08:53] LABS: Anion Gap 9 meq/L (5-15); Blood Urea Nitrogen 16 mg/dL (7-18); Calcium 8.6 mg/dL (8.5-10.1); Carbon Dioxide 29.3 meq/L (21.0-32.0); Chloride 118 meq/L (98-107); Glomerular Filtration Rate Greater Than 89 mL/min (>89); Glucose,Random 252 mg/dL (74-106); Magnesium 1.9 mg/dL (1.5-2.5); Potassium 3.2 meq/L (3.5-5.1)
[2018-05-16 09:01] LABS: Sodium 156 meq/L (136-145)
[2018-05-16] MEDS ORDERED: Insulin Detemir Inj 1,000 UNIT/10 ML Vial SQ ONE (09:46)
--- NOTE | 2018-05-16 09:48 | P.PNIM ---
Subjective Interval history: Pt is a 57 y/o F who had a 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 Pt with recent dysphagia. gastrographin swallow demonstrated delayed movement of contrast through the gastric sleeve, but EGD did not demonstrate any strictures. Pt admitted with AG of 21. Pt with metabolic encephalopathy. MRI brain showed no acute findings. Physical Exam Vital signs: 05/16/18 02:00 05/16/18 04:00 05/16/18 06:00 Temperature 99.0 F Pulse Rate 84 80 81 Respiratory Rate 22 Blood Pressure 158/75 H Pulse Oximetry 97 Narrative: GENERAL: This is a well-nourished, well-developed patient, in no apparent distress. CARDIOVASCULAR: Regular rate and rhythm without murmurs, gallops, or rubs. RESPIRATORY: Clear to auscultation. Breath sounds equal bilaterally. No wheezes , rales, or rhonchi. GASTROINTESTINAL: Abdomen soft, non-tender, nondistended. Normal active bowel sounds MUSCULOSKELETAL: Extremities without clubbing, cyanosis, or edema. NEURO: - Urinary Catheter Management Indwelling Urethral Catheter Cath placed during this visit: yes, but has since been removed by the nurse Reason for continuing: Not indwelling catheter Insertion date: 05/13/18 Insertion time: 14:35 Removal date: 05/15/18 Removal time: 11:30 Results - Labs CBC & Chem 7: 05/17/18 03:17 05/18/18 07:27 Microbiology 05/13/18 17:27 Blood - Peripheral Aerobic Blood Culture - Preliminary No growth in 2 days 05/13/18 17:27 Blood - Peripheral Anaerobic Blood Culture - Preliminary No growth in 2 days 05/13/18 17:22 Blood - Peripheral Aerobic Blood Culture - Preliminary No growth in 2 days 05/13/18 17:22 Blood - Peripheral Anaerobic Blood Culture - Preliminary No growth in 2 days 05/13/18 11:30 Catheterized Urine Urine Culture - Final No growth in 48 hours - Imaging Chest X-Ray 05/12/18 03:48 No evidence of acute cardiopulmonary disease. Gastrografin Study 05/12/18 05:51 Initial films have suggested obstruction of the sleeve. The sleeve is not obstructed but poorly empties even in the upright position. Abdomen X-Ray 05/13/18 00:00 Nonspecific abdomen. Chest X-Ray 05/13/18 10:48 Mild interstitial prominence otherwise negative Abdomen/Pelvis CT 05/13/18 12:03 1. No acute findings. Chest CT 05/13/18 12:03 CONCLUSION: 1. Small pericardial effusion and mild dependent atelectasis. 2. Otherwise unremarkable. Head MRI 05/14/18 00:00 CONCLUSION: 1. Negative MR Brain non contrast. Abdomen X-Ray 05/15/18 00:00 CONCLUSION: The NG tube is barely entering the stomach. 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 Pt with recent dysphagia. gastrographin swallow demonstrated delayed movement of contrast through the gastric sleeve, but EGD did not demonstrate any strictures. Pt admitted with AG of 21. Pt with metabolic encephalopathy. MRI brain showed no acute findings. - Pt is hypernatremic - start D5W with KCL - repeat labs in AM DM2 - increase levemir to 20 units BID - continue SSI (2) Acidosis, metabolic Code(s): E87.2 - Acidosis Status: Acute (3) Dysphagia Code(s): R13.10 - Dysphagia, unspecified Status: Acute (3) Dysphagia Qualifiers: Dysphagia type: unspecified Qualified Code(s): R13.10 - Dysphagia, unspecified
[2018-05-16] MEDS: KCL 20 mEq/Dextrose 5% Inj 1,000 ML IV.SIG SCH ×2 (10:42→23:03)
[2018-05-16] MEDS ORDERED: KCL 10 mEq/D5W/NaCl 0.45% Inj 1,000 ML IV.CONT SCH (11:00)
--- NOTE | 2018-05-16 11:00 | P.DIET ---
Nutritional Evaluation Type of nutrition evaluation: initial Nutrition consult regarding: Tube Feeding Subjective Subjective Comments: Recent dysphagia. Objective - Diagnosis Dysphagia follwing gastric sleeve, acidosis - Objective % IBW: 149 (IBW = 130#) Body Weight Used for Calculations: Upper end of IBW (65 kg) Energy Needs - Lower Range (kCal/kg): 25 Energy Needs - Upper Range (kCal/kg): 30 Lower Limit kCal/kg (kCals): 1,625 Upper Limit kCal/kg (kCals): 1,950 Lower Limit Protein Factor (Grams per Kg): 1.0 Upper Limit Protein Factor (Grams per Kg): 1.5 Lower Protein Needs (Protein): 65 Upper Protein Needs (Protein): 98 Dietitian Reviewed in Medical Record: Curent medications, Intake & Output, Labs , Medical history, Tube feeding Diet Order: NPO Objective Comments: 02/2018 gastric sleeve 05/12 panendoscopy and bx Assessment Assessment: Pt is persistently encephalopathic and needs TFing to meet nutritional needs. Trickle feeds of Glucerna 1.5 @ 20 mls/hr ordered. To meet needs with Glucerna 1.5, pt will need goal rate of 50 mls/hr to provide 1800 kcals, 99 gms protein and 911 mls of free water. Recommendations: When able: Glucerna 1.5 @ 50 mls/hr goal Dietitian to Monitor: Tube feeding tolerance, Weight change, Swallow recommendations, Medical course
--- NOTE | 2018-05-16 11:06 | P.PNGS ---
Subjective Interval history: More alert today, Tolerating Glucerna 20 ml/hr. BMx2 in PM Physical Exam Vital signs: Vital Signs 05/15/18 12:00 05/15/18 13:00 05/15/18 14:00 Temperature 99.2 F Pulse Rate 86 76 73 Respiratory Rate 23 16 12 Blood Pressure 152/91 H 117/67 163/77 H Pulse Oximetry 100 97 96 05/15/18 15:00 05/15/18 16:00 05/15/18 17:00 Temperature 98.7 F Pulse Rate 89 94 H 86 Respiratory Rate 17 22 16 Blood Pressure 160/76 H 151/75 H 155/78 H Pulse Oximetry 96 98 96 05/15/18 18:00 05/15/18 20:00 05/15/18 22:00 Temperature 99.3 F Pulse Rate 84 89 78 Respiratory Rate 20 Blood Pressure 150/79 H Pulse Oximetry 99 05/16/18 00:00 05/16/18 02:00 05/16/18 04:00 Temperature 99.2 F 99.0 F Pulse Rate 78 84 80 Respiratory Rate 18 22 Blood Pressure 142/66 H 158/75 H Pulse Oximetry 96 97 05/16/18 06:00 05/16/18 07:00 05/16/18 08:00 Temperature 97.8 F Pulse Rate 81 77 60 Respiratory Rate 24 22 Blood Pressure 156/74 H 173/77 H Pulse Oximetry 97 93 L 05/16/18 08:38 05/16/18 09:00 05/16/18 09:14 Temperature Pulse Rate 75 80 Respiratory Rate 25 H 22 Blood Pressure 155/73 H 171/79 H Pulse Oximetry 96 96 95 05/16/18 10:00 Temperature Pulse Rate 70 Respiratory Rate 20 Blood Pressure Pulse Oximetry 97 Intake & Output 05/15/18 05/16/18 05/16/18 18:59 06:59 18:59 Intake Total 1360 / 1360 1136 / 1136 Output Total 750 / 750 600 / 600 Balance 610 / 610 536 / 536 Weight 88 kg Intake: IV 1360 / 1360 1000 / 1000 D5W/1/2NS + KCL 20 mEq Inj 1, 1000 / 1000 1000 / 1000 000 ML @ 100 mls/hr IV.CONT . Q10H [facility] Rx#:[id number] Zosyn 4.5 GM Premix 4.5 gm In 100 / 100 100 ml @ 200 mls/hr IV.SIG Q6H [facility] Rx#:[id number] Potassium Phosphate Inj 30 MMOL 260 / 260 In NS Inj 250 ML @ 42 mls/hr IV.SIG UNSCH PRN Rx#:[id number] Oral 0 / 0 Tube Feeding 136 / 136 Output: Urine 600 / 600 Stool 0 / 0 Urine/Stool Mix 0 / 0 Urine Amount (Catheter) 750 / 750 Indwelling Urethral Catheter 750 / 750 Other: # Incontinent Voids 2 Date of Last Bowel Movement 05/15/18 05/15/18 05/15/18 # Bowel Movements 2 0 # Incontinent Bowel Movements 0 Narrative: GENERAL: This is a well-nourished, well-developed patient, in no apparent distress. CARDIOVASCULAR: Regular rate and rhythm without murmurs, gallops, or rubs. RESPIRATORY: Clear to auscultation. Breath sounds equal bilaterally. No wheezes , rales, or rhonchi. GASTROINTESTINAL: Abdomen soft, non-tender, nondistended. Normal active bowel sounds MUSCULOSKELETAL: Extremities without clubbing, cyanosis, or edema. NEURO: - Routine Abdominal Exam Present: soft, normoactive bowel sounds - Urinary Catheter Management Indwelling Urethral Catheter Cath placed during this visit: yes, but has since been removed by the nurse Reason for continuing: Not indwelling catheter Insertion date: 05/13/18 Insertion time: 14:35 Removal date: 05/15/18 Removal time: 11:30 Results - Labs 05/16/18 04:15 05/16/18 08:08 Laboratory Results - last 24 hr 05/15/18 05/15/18 05/15/18 11:46 12:55 15:01 WBC RBC Hgb Hct MCV MCH MCHC RDW Plt Count MPV Puncture Site Patient Temperature O2 Saturation ABG pH ABG pCO2 ABG pO2 ABG HCO3 ABG O2 Content ABG Base Excess ABG Methemoglobin Sheldon Test Hemoglobin Carboxyhemoglobin O2 Delivery Device Inspired O2 Critical Value Sodium 157 H* Potassium 2.8 L* Chloride 117 H Carbon Dioxide 25.9 Anion Gap 14 BUN 13 Creatinine 0.81 Estimated GFR 72 L POC Glucose 199 H Random Glucose 185 H Calcium 8.3 L Phosphorus 1.5 L Magnesium 1.9 Ammonia 30 05/15/18 05/15/18 05/15/18 16:48 20:42 23:54 WBC RBC Hgb Hct MCV MCH MCHC RDW Plt Count MPV Puncture Site Patient Temperature O2 Saturation ABG pH ABG pCO2 ABG pO2 ABG HCO3 ABG O2 Content ABG Base Excess ABG Methemoglobin Sheldon Test Hemoglobin Carboxyhemoglobin O2 Delivery Device Inspired O2 Critical Value Sodium Potassium Chloride Carbon Dioxide Anion Gap BUN Creatinine Estimated GFR POC Glucose 190 H 200 H 265 H Random Glucose Calcium Phosphorus Magnesium Ammonia 05/16/18 05/16/18 05/16/18 04:15 04:58 05:50 WBC 9.2 RBC 4.61 Hgb 13.5 Hct 38.7 MCV 84.0 MCH 29.4 MCHC 34.9 RDW 16.0 Plt Count 213 MPV 7.9 Puncture Site Right radial Patient Temperature 98.6 O2 Saturation 93 ABG pH 7.44 H ABG pCO2 43 H ABG pO2 73 ABG HCO3 29 H ABG O2 Content 16.6 ABG Base Excess 4.7 H ABG Methemoglobin 1.4 Sheldon Test Present Hemoglobin 12.7 Carboxyhemoglobin 1.6 O2 Delivery Device Room air Inspired O2 21 Critical Value No Sodium Potassium Chloride Carbon Dioxide Anion Gap BUN Creatinine Estimated GFR POC Glucose 173 H Random Glucose Calcium Phosphorus Magnesium Ammonia 05/16/18 05/16/18 05/16/18 08:08 08:28 10:44 WBC RBC Hgb Hct MCV MCH MCHC RDW Plt Count MPV Puncture Site Patient Temperature O2 Saturation ABG pH ABG pCO2 ABG pO2 ABG HCO3 ABG O2 Content ABG Base Excess ABG Methemoglobin Sheldon Test Hemoglobin Carboxyhemoglobin O2 Delivery Device Inspired O2 Critical Value Sodium 156 H* Potassium 3.2 L Chloride 118 H Carbon Dioxide 29.3 Anion Gap 9 BUN 16 Creatinine 0.65 Estimated GFR Greater than 89 POC Glucose 225 H 224 H Random Glucose 252 H Calcium 8.6 Phosphorus 3.0 D Magnesium 1.9 Ammonia - Imaging Imaging: ITS Impressions Gastrografin Study 05/12/18 05:51 CONCLUSION: Initial films have suggested obstruction of the sleeve. The sleeve is not obstructed but poorly empties even in the upright position. Chest X-Ray 05/13/18 10:48 CONCLUSION: Mild interstitial prominence otherwise negative Abdomen/Pelvis CT 05/13/18 12:03 CONCLUSION: 1. No acute findings. Chest CT 05/13/18 12:03 CONCLUSION: 1. Small pericardial effusion and mild dependent atelectasis. 2. Otherwise unremarkable. Head MRI 05/14/18 00:00 CONCLUSION: 1. Negative MR Brain non contrast. Abdomen X-Ray 05/15/18 00:00 CONCLUSION: The NG tube is barely entering the stomach. Assessment and Plan - Assessment (1) Acidosis, metabolic Code(s): E87.2 - Acidosis Status: Acute Plan: Improving, no longer on insulin gtt. Continue with transitions manager management. (2) Dysphagia Code(s): R13.10 - Dysphagia, unspecified Status: Acute Plan: Tolerating Glucerna 20 ml/hr. (3) Nausea & vomiting Code(s): R11.2 - Nausea with vomiting, unspecified Status: Acute Plan: Continue Protonix daily, One episode of nausea in PM. No vomiting - Plan Cont ICU care, advance feeds. (2) Dysphagia Qualifiers: Dysphagia type: unspecified Qualified Code(s): R13.10 - Dysphagia, unspecified
--- NOTE | 2018-05-16 11:59 | MB ---
cc: Aleja Gannon MD DATE: 05/16/2018 REASON FOR CONSULTATION: Encephalopathy, change in mental status. HISTORY OF PRESENT ILLNESS: This is a 57-year-old woman admitted to the hospital on 05/12/2018 after acute change in mental status. She had a gastric sleeve 02/2018 and recently had some dysphagia. Gastrografin demonstrated delayed movement of contrast through the gastric sleeve, but EGD did not demonstrate any strictures. She was admitted with an anion gap 21, given fluids. She has a history of diabetes, has been n.p.o.; had a glucose of 285. After her EGD apparently she did not get back to baseline after anesthesia, per chart. Chest x-ray KUB did not show any free air. Has been followed by general surgery as well as now the admitting Internal Medicine Team. Had an MRI of the brain on 05/14/2018 that was negative for any acute findings. Her anion gap eventually closed. She had some acidosis. Her daughter is here at bedside actually and states that she is the best she has been today. PAST MEDICAL HISTORY: Obesity, hyperlipidemia, hypertension, type 2 diabetes; has a history of renal stent, cholecystectomy, diskectomy, in the past. SOCIAL HISTORY: Does not smoke or drink. PHYSICAL EXAMINATION: VITAL SIGNS: Temperature is 97.8, pulse 70, respiratory rate 20, blood pressure 171/79, saturating at 97 on room air. NEUROLOGIC: She is awake and alert; tries to follow simple commands if you mimic it. Her pupils are reactive. Her face looks symmetrical. She does stick her tongue out; it is midline. She can lift both arms up and both legs up antigravity. She does not follow for cerebellar. She will not state her name; at times nods and states yes, but does not complete any sentences. She almost looks like she has an aphasia. LABORATORY DATA: CBC is normal today. She did have a white count of 12.9 when she came in. Blood gas this morning: PH 304, pCO2 of 43, pO2 73, bicarbonate of 29, which has improved as well. Chemistries: Sodium is 156, potassium 3.2, glucose of 225. Her lactic acid 05/13/2018 is 1.1. Magnesium and phosphorus are normal range. Calcium normal range. Urine showed large ketones. Culture was done, did not show any growth, nor did blood cultures. IMAGIN. MRI of the brain on 05/14/2018 was negative for any acute process. 2. Abdominal x-ray on 05/15/2018; NG is barely entering the stomach. I believe that has been adjusted. 3. CT chest: Small pericardial effusion, mild dependent atelectasis, otherwise unremarkable. 4. Abdominal pelvis CT, nothing acute. 5. Chest x-ray 05/13/2018: Mild interstitial prominence, otherwise negative. IMPRESSION: Encephalopathy: Seems to be improving; her potassium is a little bit low and her sodium is a little bit high. Accu-Cheks are on the higher side. PLAN: Continue controlling her electrolytes. Looking at her medicines, she is not on any sedating medication. She has Percocet, but I would limit that to only if necessary. We will go ahead and get an EEG. Continue to monitor her neuro status. I do not think we need to repeat the MRI at this point in time. Further recommendations will be made if needed. MD ABELARDO Shah/faustino , 10:39 AM , 10:50 AM
--- NOTE | 2018-05-16 14:01 | P.PNGI ---
Subjective Interval history: More alert today. Tolerating TF Physical Exam Vital signs: Vital Signs 05/15/18 14:00 05/15/18 15:00 05/15/18 16:00 Temperature 98.7 F Pulse Rate 73 89 94 H Respiratory Rate 12 17 22 Blood Pressure 163/77 H 160/76 H 151/75 H Pulse Oximetry 96 96 98 05/15/18 17:00 05/15/18 18:00 05/15/18 20:00 Temperature 99.3 F Pulse Rate 86 84 89 Respiratory Rate 16 20 Blood Pressure 155/78 H 150/79 H Pulse Oximetry 96 99 05/15/18 22:00 05/16/18 00:00 05/16/18 02:00 Temperature 99.2 F Pulse Rate 78 78 84 Respiratory Rate 18 Blood Pressure 142/66 H Pulse Oximetry 96 05/16/18 04:00 05/16/18 06:00 05/16/18 07:00 Temperature 99.0 F 97.8 F Pulse Rate 80 81 77 Respiratory Rate 22 24 Blood Pressure 158/75 H 156/74 H Pulse Oximetry 97 97 05/16/18 08:00 05/16/18 08:38 05/16/18 09:00 Temperature Pulse Rate 60 75 80 Respiratory Rate 22 25 H 22 Blood Pressure 173/77 H 155/73 H 171/79 H Pulse Oximetry 93 L 96 96 05/16/18 09:14 05/16/18 10:00 05/16/18 10:49 Temperature Pulse Rate 70 80 Respiratory Rate 20 22 Blood Pressure 168/77 H Pulse Oximetry 95 97 94 L 05/16/18 11:00 05/16/18 11:01 05/16/18 12:00 Temperature Pulse Rate 71 75 83 Respiratory Rate Blood Pressure Pulse Oximetry 96 94 L 96 05/16/18 12:01 05/16/18 13:00 Temperature Pulse Rate 67 79 Respiratory Rate 22 Blood Pressure 156/68 H 171/86 H Pulse Oximetry 94 L 96 Intake & Output 05/15/18 05/16/18 05/16/18 18:59 06:59 18:59 Intake Total 1360 / 1360 1136 / 1136 1160 / 1160 Output Total 750 / 750 600 / 600 Balance 610 / 610 536 / 536 1160 / 1160 Weight 88 kg Intake: IV 1360 / 1360 1000 / 1000 1160 / 1160 D5W/1/2NS + KCL 20 mEq Inj 1, 1000 / 1000 1000 / 1000 900 / 900 000 ML @ 100 mls/hr IV.CONT . Q10H [facility] Rx#:[id number] Zosyn 4.5 GM Premix 4.5 gm In 100 / 100 100 ml @ 200 mls/hr IV.SIG Q6H [facility] Rx#:[id number] Potassium Phosphate Inj 30 MMOL 260 / 260 260 / 260 In NS Inj 250 ML @ 42 mls/hr IV.SIG UNSCH PRN Rx#:[id number] Oral 0 / 0 Tube Feeding 136 / 136 Output: Urine 600 / 600 Stool 0 / 0 Urine/Stool Mix 0 / 0 Urine Amount (Catheter) 750 / 750 Indwelling Urethral Catheter 750 / 750 Other: # Incontinent Voids 2 Date of Last Bowel Movement 05/15/18 05/15/18 05/15/18 # Bowel Movements 2 0 # Incontinent Bowel Movements 0 - Constitutional no acute distress - Routine HEENT Exam Head: Present: normocephalic ENT: Present: mucous membranes moist - Routine Respiratory Exam Present: CTA bilaterally - Routine Cardiovascular Exam Present: RRR, S1, S2 - Routine Abdominal Exam Present: soft, normoactive bowel sounds - Routine Neurological Exam Present: alert - Urinary Catheter Management Indwelling Urethral Catheter Cath placed during this visit: yes, but has since been removed by the nurse Reason for continuing: Not indwelling catheter Insertion date: 05/13/18 Insertion time: 14:35 Removal date: 05/15/18 Removal time: 11:30 Results - Labs CBC & Chem 7: 05/16/18 04:15 05/16/18 08:08 Laboratory Results - last 24 hr 05/15/18 05/15/18 05/15/18 15:01 16:48 20:42 WBC RBC Hgb Hct MCV MCH MCHC RDW Plt Count MPV Puncture Site Patient Temperature O2 Saturation ABG pH ABG pCO2 ABG pO2 ABG HCO3 ABG O2 Content ABG Base Excess ABG Methemoglobin Sheldon Test Hemoglobin Carboxyhemoglobin O2 Delivery Device Inspired O2 Critical Value Sodium 157 H* Potassium 2.8 L* Chloride 117 H Carbon Dioxide 25.9 Anion Gap 14 BUN 13 Creatinine 0.81 Estimated GFR 72 L POC Glucose 190 H 200 H Random Glucose 185 H Calcium 8.3 L Phosphorus 1.5 L Magnesium 1.9 05/15/18 05/16/18 05/16/18 23:54 04:15 04:58 WBC 9.2 RBC 4.61 Hgb 13.5 Hct 38.7 MCV 84.0 MCH 29.4 MCHC 34.9 RDW 16.0 Plt Count 213 MPV 7.9 Puncture Site Patient Temperature O2 Saturation ABG pH ABG pCO2 ABG pO2 ABG HCO3 ABG O2 Content ABG Base Excess ABG Methemoglobin Sheldon Test Hemoglobin Carboxyhemoglobin O2 Delivery Device Inspired O2 Critical Value Sodium Potassium Chloride Carbon Dioxide Anion Gap BUN Creatinine Estimated GFR POC Glucose 265 H 173 H Random Glucose Calcium Phosphorus Magnesium 05/16/18 05/16/18 05/16/18 05:50 08:08 08:28 WBC RBC Hgb Hct MCV MCH MCHC RDW Plt Count MPV Puncture Site Right radial Patient Temperature 98.6 O2 Saturation 93 ABG pH 7.44 H ABG pCO2 43 H ABG pO2 73 ABG HCO3 29 H ABG O2 Content 16.6 ABG Base Excess 4.7 H ABG Methemoglobin 1.4 Sheldon Test Present Hemoglobin 12.7 Carboxyhemoglobin 1.6 O2 Delivery Device Room air Inspired O2 21 Critical Value No Sodium 156 H* Potassium 3.2 L Chloride 118 H Carbon Dioxide 29.3 Anion Gap 9 BUN 16 Creatinine 0.65 Estimated GFR Greater than 89 POC Glucose 225 H Random Glucose 252 H Calcium 8.6 Phosphorus 3.0 D Magnesium 1.9 05/16/18 10:44 WBC RBC Hgb Hct MCV MCH MCHC RDW Plt Count MPV Puncture Site Patient Temperature O2 Saturation ABG pH ABG pCO2 ABG pO2 ABG HCO3 ABG O2 Content ABG Base Excess ABG Methemoglobin Sheldon Test Hemoglobin Carboxyhemoglobin O2 Delivery Device Inspired O2 Critical Value Sodium Potassium Chloride Carbon Dioxide Anion Gap BUN Creatinine Estimated GFR POC Glucose 224 H Random Glucose Calcium Phosphorus Magnesium Microbiology 05/13/18 17:27 Blood - Peripheral Aerobic Blood Culture - Preliminary No growth in 3 days 05/13/18 17:27 Blood - Peripheral Anaerobic Blood Culture - Preliminary No growth in 3 days 05/13/18 17:22 Blood - Peripheral Aerobic Blood Culture - Preliminary No growth in 3 days 05/13/18 17:22 Blood - Peripheral Anaerobic Blood Culture - Preliminary No growth in 3 days - Imaging Impressions Abdomen X-Ray 05/15/18 00:00 CONCLUSION: The NG tube is barely entering the stomach. Assessment and Plan (1) Nausea & vomiting Status: Acute Code(s): R11.2 - Nausea with vomiting, unspecified - Plan Seen and examined in the presence of family. More alert today. Tolerating TF. Hopefully can remove NG by tomorrow if more alert. GI will sign off, reconsult as needed. Thank you
--- NOTE | 2018-05-16 14:43 | MB ---
cc: Mingo Bangura MD DATE: 05/16/2018 EMG/NCV: Chest pain, high cholesterol, Reglan. Recording shows diffuse 4 Hz slowing which was synchronous and symmetric up to 70 microvolts. She is noted to be asleep and snoring through the recording. She does not quite reach stage II sleep. Photic stimulation was performed without significant posterior driving. Hyperventilation was not performed. IMPRESSION: Diffuse delta slowing in sleep, probably normal for this patient. Clinical correlation is needed. The diffuse delta slowing if the patient was not in sleep could be consistent with a moderate to severe diffuse encephalopathy. Clinical correlation is needed. Mingo Bangura MD DJM/ts , 02:02 PM , 02:08 PM
[2018-05-16 16:03] LABS: Anion Gap 8 meq/L (5-15); Blood Urea Nitrogen 17 mg/dL (7-18); Calcium 8.8 mg/dL (8.5-10.1); Carbon Dioxide 31.4 meq/L (21.0-32.0); Chloride 116 meq/L (98-107); Glomerular Filtration Rate Greater Than 89 mL/min (>89); Glucose,Random 168 mg/dL (74-106); Potassium 3.1 meq/L (3.5-5.1); Sodium 155 meq/L (136-145)
[2018-05-16] MEDS: Enoxaparin Inj 40 MG/0.4 ML Syringe SQ SCH (16:59)
[2018-05-17 04:20] LABS: Baso % (Auto) 0.2 % (0.0-2.0); Eos % (Auto) 0.1 % (0.0-4.0); Hematocrit 38.9 % (35.0-46.0); Hemoglobin 13.4 gm/dL (11.6-15.3); Lymph # (Auto) 1.7 th/mm3 (1.0-4.8); Lymph % (Auto) 18.4 % (9.0-44.0); Mean Corpuscular HGB Conc 34.5 % (32.0-36.0); Mean Corpuscular Hemoglobin 29.6 pg (27.0-34.0); Mean Corpuscular Volume 85.8 fL (80.0-100.0); Mean Platelet Volume 8.2 fL (7.0-11.0); Mono # (Auto) 0.9 th/mm3 (0.0-0.9); Mono % (Auto) 10.1 % (0.0-8.0); Neut # (Auto) 6.5 th/mm3 (1.8-7.7); Neut % (Auto) 71.2 % (16.0-70.0); Platelet Count 198 th/mm3 (150-450); Red Blood Count 4.54 mil/mm3 (4.00-5.30); Red Cell Distribution Width 15.7 % (11.6-17.2); White Blood Count 9.1 th/mm3 (4.0-11.0)
[2018-05-17 04:47] LABS: Anion Gap 8 meq/L (5-15); Blood Urea Nitrogen 18 mg/dL (7-18); Calcium 9.1 mg/dL (8.5-10.1); Carbon Dioxide 32.3 meq/L (21.0-32.0); Chloride 113 meq/L (98-107); Glomerular Filtration Rate Greater Than 89 mL/min (>89); Glucose,Random 123 mg/dL (74-106); Magnesium 2.1 mg/dL (1.5-2.5); Potassium 3.2 meq/L (3.5-5.1); Sodium 153 meq/L (136-145)
[2018-05-17 04:49] LABS: Phosphorus 2.1 mg/dL (2.5-4.9)
[2018-05-17] MEDS: Insulin NovoLOG Aspart Correctional Sugar Inj SQ SCH ×5 (06:37→20:58)
[2018-05-17] MEDS ORDERED: Potassium Chloride 25 MEQ Effervescent Tablet PO ONE (09:15)
[2018-05-17] MEDS: Insulin Detemir Inj 1,000 UNIT/10 ML Vial SQ SCH ×2 (09:21→20:58)
[2018-05-17] MEDS: Potassium Phosphate Inj 30 MMOL in Sodium Chlor 0.9% Inj 250 ML IV.SIG PRN (09:45)
[2018-05-17] MEDS: KCL 20 mEq/Dextrose 5% Inj 1,000 ML IV.SIG SCH ×2 (11:14→22:53)
--- NOTE | 2018-05-17 13:38 | P.PNGS ---
Subjective Interval history: Patient feeling much better , alert and oriented x 3. When questioned about the events leading up to her hospitalization she is unsure. States she is hungry and wants to eat Physical Exam Vital signs: Vital Signs 05/16/18 14:00 05/16/18 15:00 05/16/18 16:00 Temperature Pulse Rate 84 83 67 Respiratory Rate 21 Blood Pressure 157/70 H 158/81 H 159/74 H Pulse Oximetry 98 97 93 L 05/16/18 17:20 05/16/18 20:00 05/16/18 22:00 Temperature 98.9 F Pulse Rate 60 65 78 Respiratory Rate 24 Blood Pressure 181/88 H Pulse Oximetry 96 05/17/18 00:00 05/17/18 02:00 05/17/18 04:00 Temperature 98.3 F 98.5 F Pulse Rate 65 91 H 69 Respiratory Rate 21 19 Blood Pressure 164/77 H 152/81 H Pulse Oximetry 96 98 05/17/18 06:00 05/17/18 08:00 05/17/18 08:16 Temperature 98.5 F Pulse Rate 58 L 67 Respiratory Rate 22 Blood Pressure 161/81 H Pulse Oximetry 95 97 05/17/18 09:00 05/17/18 10:00 Temperature Pulse Rate 66 75 Respiratory Rate 23 27 H Blood Pressure 155/74 H 159/85 H Pulse Oximetry 95 96 Intake & Output 05/16/18 05/17/18 05/17/18 18:59 06:59 18:59 Intake Total 1160 / 1160 1240 / 1240 1000 / 1000 Output Total 600 / 600 850 / 850 Balance 560 / 560 390 / 390 1000 / 1000 Weight 87 kg Intake: IV 1160 / 1160 1000 / 1000 1000 / 1000 D5W/1/2NS + KCL 20 mEq Inj 1, 900 / 900 000 ML @ 100 mls/hr IV.CONT . Q10H [facility] Rx#:[id number] D5W + KCL 20 mEq Inj 1,000 ML @ 1000 / 1000 1000 / 1000 85 mls/hr IV.SIG .[id number] [facility] Rx#:[id number] Potassium Phosphate Inj 30 MMOL 260 / 260 In NS Inj 250 ML @ 42 mls/hr IV.SIG UNSCH PRN Rx#:[id number] Oral 0 / 0 Tube Feeding 240 / 240 Output: Urine 600 / 600 650 / 650 Stool 200 / 200 Other: # Incontinent Voids 0 Date of Last Bowel Movement 05/16/18 05/17/18 05/16/18 # Bowel Movements 5 # Incontinent Bowel Movements 1 5 Narrative: GENERAL: NAD CARDIOVASCULAR: RRR, sinus on tele RESPIRATORY: Clear to auscultation. GASTROINTESTINAL: Abdomen soft, non-tender, nondistended. Normal active bowel sounds. NGT to right nare MUSCULOSKELETAL: Extremities without clubbing, cyanosis, or edema. - Urinary Catheter Management Indwelling Urethral Catheter Cath placed during this visit: yes, but has since been removed by the nurse Reason for continuing: Not indwelling catheter Insertion date: 05/13/18 Insertion time: 14:35 Removal date: 05/15/18 Removal time: 11:30 Results - Labs 05/17/18 03:17 05/17/18 03:17 Laboratory Results - last 24 hr 05/16/18 05/16/18 05/16/18 15:06 16:18 20:26 WBC RBC Hgb Hct MCV MCH MCHC RDW Plt Count MPV Neut % (Auto) Lymph % (Auto) [place] % (Auto) Eos % (Auto) Baso % (Auto) Neut # (Auto) Lymph # (Auto) [place] # (Auto) Eos # (Auto) Baso # (Auto) WBC Differential Differential Comment Sodium 155 H Potassium 3.1 L Chloride 116 H Carbon Dioxide 31.4 Anion Gap 8 BUN 17 Creatinine 0.55 Estimated GFR Greater than 89 POC Glucose 186 H 177 H Random Glucose 168 H Calcium 8.8 Phosphorus Magnesium 05/16/18 05/17/18 05/17/18 23:06 03:17 03:17 WBC 9.1 RBC 4.54 Hgb 13.4 Hct 38.9 MCV 85.8 MCH 29.6 MCHC 34.5 RDW 15.7 Plt Count 198 MPV 8.2 Neut % (Auto) 71.2 H Lymph % (Auto) 18.4 [place] % (Auto) 10.1 H Eos % (Auto) 0.1 Baso % (Auto) 0.2 Neut # (Auto) 6.5 Lymph # (Auto) 1.7 [place] # (Auto) 0.9 Eos # (Auto) 0.0 Baso # (Auto) 0.0 WBC Differential . Differential Comment Auto diff final Sodium 153 H Potassium 3.2 L Chloride 113 H Carbon Dioxide 32.3 H Anion Gap 8 BUN 18 Creatinine 0.57 Estimated GFR Greater than 89 POC Glucose 261 H Random Glucose 123 H Calcium 9.1 Phosphorus 2.1 L Magnesium 2.1 05/17/18 05/17/18 05:06 08:50 WBC RBC Hgb Hct MCV MCH MCHC RDW Plt Count MPV Neut % (Auto) Lymph % (Auto) [place] % (Auto) Eos % (Auto) Baso % (Auto) Neut # (Auto) Lymph # (Auto) [place] # (Auto) Eos # (Auto) Baso # (Auto) WBC Differential Differential Comment Sodium Potassium Chloride Carbon Dioxide Anion Gap BUN Creatinine Estimated GFR POC Glucose 123 H 164 H Random Glucose Calcium Phosphorus Magnesium - Imaging Imaging: ITS Impressions Gastrografin Study 05/12/18 05:51 CONCLUSION: Initial films have suggested obstruction of the sleeve. The sleeve is not obstructed but poorly empties even in the upright position. Chest X-Ray 05/13/18 10:48 CONCLUSION: Mild interstitial prominence otherwise negative Abdomen/Pelvis CT 05/13/18 12:03 CONCLUSION: 1. No acute findings. Chest CT 05/13/18 12:03 CONCLUSION: 1. Small pericardial effusion and mild dependent atelectasis. 2. Otherwise unremarkable. Head MRI 05/14/18 00:00 CONCLUSION: 1. Negative MR Brain non contrast. Abdomen X-Ray 05/15/18 00:00 CONCLUSION: The NG tube is barely entering the stomach. Assessment and Plan - Plan 57yo with DKA, resolving -Swallow eval by speech, if passes ok to pull NGT and place on clears -Continue supportive care, appreciate input from GI and Critical Care Code Status: Full Discussed Condition With: Patient, daughter, and top flavor attendant Planning: Depending on hospital course - Attending Attestation The exam, history, and the medical decision-making described in the above note were completed with the assistance of the mid-level provider. I reviewed and agree with the findings presented. I attest that I had a [id number] encounter with the patient on the same day, and personally performed and documented my assessment and findings in the medical record.
[2018-05-17] MEDS: Enoxaparin Inj 40 MG/0.4 ML Syringe SQ SCH (18:43)
--- NOTE | 2018-05-17 18:55 | P.PNIM ---
Subjective Interval history: no new complaints Physical Exam Vital signs: 05/17/18 17:00 05/17/18 18:00 Temperature Pulse Rate 76 71 Respiratory Rate 18 22 Blood Pressure 150/76 H 144/76 H Pulse Oximetry 97 94 L Narrative: GENERAL: This is a well-nourished, well-developed patient, in no apparent distress. CARDIOVASCULAR: Regular rate and rhythm without murmurs, gallops, or rubs. RESPIRATORY: Clear to auscultation. Breath sounds equal bilaterally. No wheezes , rales, or rhonchi. GASTROINTESTINAL: Abdomen soft, non-tender, nondistended. Normal active bowel sounds MUSCULOSKELETAL: Extremities without clubbing, cyanosis, or edema. NEURO: A&Ox3, but confused at times (much improved from 05/16), GIBSON - Urinary Catheter Management Indwelling Urethral Catheter Cath placed during this visit: yes, but has since been removed by the nurse Reason for continuing: Not indwelling catheter Insertion date: 05/13/18 Insertion time: 14:35 Removal date: 05/15/18 Removal time: 11:30 Results - Labs CBC & Chem 7: 05/17/18 03:17 05/18/18 07:27 Microbiology 05/13/18 17:27 Blood - Peripheral Aerobic Blood Culture - Preliminary No growth in 4 days 05/13/18 17:27 Blood - Peripheral Anaerobic Blood Culture - Preliminary No growth in 4 days 05/13/18 17:22 Blood - Peripheral Aerobic Blood Culture - Preliminary No growth in 4 days 05/13/18 17:22 Blood - Peripheral Anaerobic Blood Culture - Preliminary No growth in 4 days Assessment and Plan - Assessment (1) Metabolic encephalopathy Code(s): G93.41 - Metabolic encephalopathy Status: Acute Plan: Pt is a 57 y/o F who had a 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 Pt with recent dysphagia. gastrographin swallow demonstrated delayed movement of contrast through the gastric sleeve, but EGD did not demonstrate any strictures. Pt admitted with AG of 21. Pt with metabolic encephalopathy. MRI brain showed no acute findings. - Pt is hypernatremic, improving - continue D5W with KCL - repeat labs in AM - appreciate input from Neurology - EEG (05/16) --> slowing, no seizure activity DM2 - improved - levemir to 20 units BID - continue SSI (2) Acidosis, metabolic Code(s): E87.2 - Acidosis Status: Acute (3) Dysphagia Code(s): R13.10 - Dysphagia, unspecified Status: Acute (3) Dysphagia Qualifiers: Dysphagia type: unspecified Qualified Code(s): R13.10 - Dysphagia, unspecified
[2018-05-18] MEDS: Insulin NovoLOG Aspart Correctional Sugar Inj SQ SCH ×5 (04:13→20:09)
[2018-05-18 08:28] LABS: Anion Gap 5 meq/L (5-15); Blood Urea Nitrogen 17 mg/dL (7-18); Calcium 8.6 mg/dL (8.5-10.1); Chloride 105 meq/L (98-107); Glomerular Filtration Rate Greater Than 89 mL/min (>89); Glucose,Random 179 mg/dL (74-106); Magnesium 2.2 mg/dL (1.5-2.5); Sodium 144 meq/L (136-145)
[2018-05-18] MEDS: Insulin Detemir Inj 1,000 UNIT/10 ML Vial SQ SCH ×2 (09:09→20:09)
--- NOTE | 2018-05-18 12:26 | P.PNGS ---
Subjective Patient reports: no new complaints (ng removed, minimal nausea, +bms) Physical Exam Vital signs: Vital Signs 05/17/18 13:00 05/17/18 14:00 05/17/18 15:00 Temperature Pulse Rate 66 70 60 Respiratory Rate 17 23 17 Blood Pressure 142/75 H 127/64 Pulse Oximetry 99 96 94 L 05/17/18 15:01 05/17/18 16:00 05/17/18 16:01 Temperature Pulse Rate 71 72 69 Respiratory Rate 19 15 15 Blood Pressure 156/69 H 136/63 Pulse Oximetry 95 94 L 97 05/17/18 17:00 05/17/18 18:00 05/17/18 20:00 Temperature 98.4 F Pulse Rate 76 71 66 Respiratory Rate 18 22 17 Blood Pressure 150/76 H 144/76 H 146/70 H Pulse Oximetry 97 94 L 95 05/17/18 20:13 05/17/18 22:00 05/18/18 00:00 Temperature 98.1 F Pulse Rate 63 67 Respiratory Rate 13 Blood Pressure 134/68 Pulse Oximetry 95 92 L 05/18/18 02:00 05/18/18 04:00 05/18/18 06:00 Temperature 97.7 F Pulse Rate 64 74 59 L Respiratory Rate 26 H Blood Pressure 148/70 H Pulse Oximetry 90 L 05/18/18 08:00 05/18/18 08:24 05/18/18 09:00 Temperature 98 F Pulse Rate 72 60 Respiratory Rate 21 22 Blood Pressure 157/80 H 145/67 H Pulse Oximetry 94 L 94 L 93 L 05/18/18 10:00 05/18/18 11:00 05/18/18 12:00 Temperature 97.8 F Pulse Rate 70 67 88 Respiratory Rate 19 17 20 Blood Pressure 166/77 H 133/69 134/73 Pulse Oximetry 93 L 93 L 92 L Intake & Output 05/17/18 05/18/18 05/18/18 18:59 06:59 18:59 Intake Total 1685 / 1685 1000 / 1000 1000 / 1000 Output Total 150 / 150 650 / 650 Balance 1535 / 1535 350 / 350 1000 / 1000 Weight 92 kg Intake: IV 1260 / 1260 1000 / 1000 1000 / 1000 D5W + KCL 20 mEq Inj 1,000 ML @ 1000 / 1000 1000 / 1000 1000 / 1000 85 mls/hr IV.SIG .[id number] [facility] Rx#:[id number] Potassium Phosphate Inj 30 MMOL 260 / 260 In NS Inj 250 ML @ 42 mls/hr IV.SIG UNSCH PRN Rx#:[id number] Oral 0 / 0 Tube Feeding 305 / 305 Water Bolus Amount 120 / 120 Output: Urine 150 / 150 650 / 650 Other: Date of Last Bowel Movement 05/16/18 05/17/18 05/16/18 # Bowel Movements 0 - Routine Respiratory Exam Present: CTA bilaterally - Routine Abdominal Exam Present: soft - Urinary Catheter Management Indwelling Urethral Catheter Cath placed during this visit: yes, but has since been removed by the nurse Reason for continuing: Not indwelling catheter Insertion date: 05/13/18 Insertion time: 14:35 Removal date: 05/15/18 Removal time: 11:30 Results - Labs 05/17/18 03:17 05/18/18 07:27 Laboratory Results - last 24 hr 05/13/18 05/17/18 05/17/18 12:19 13:53 17:10 [facility]on Test Present Sodium Potassium Chloride Carbon Dioxide Anion Gap BUN Creatinine Estimated GFR POC Glucose 157 H 165 H Random Glucose Calcium Magnesium 05/17/18 05/18/18 05/18/18 20:31 00:07 03:47 Sheldon Test Sodium Potassium Chloride Carbon Dioxide Anion Gap BUN Creatinine Estimated GFR POC Glucose 188 H 141 H 136 H Random Glucose Calcium Magnesium 05/18/18 05/18/18 07:27 08:31 Sheldon Test Sodium 144 Potassium 4.0 D Chloride 105 D Carbon Dioxide 34.0 H Anion Gap 5 BUN 17 Creatinine 0.43 L Estimated GFR Greater than 89 POC Glucose 178 H Random Glucose 179 H Calcium 8.6 Magnesium 2.2 - Imaging Imaging: ITS Impressions Gastrografin Study 05/12/18 05:51 CONCLUSION: Initial films have suggested obstruction of the sleeve. The sleeve is not obstructed but poorly empties even in the upright position. Chest X-Ray 05/13/18 10:48 CONCLUSION: Mild interstitial prominence otherwise negative Abdomen/Pelvis CT 05/13/18 12:03 CONCLUSION: 1. No acute findings. Chest CT 05/13/18 12:03 CONCLUSION: 1. Small pericardial effusion and mild dependent atelectasis. 2. Otherwise unremarkable. Head MRI 05/14/18 00:00 CONCLUSION: 1. Negative MR Brain non contrast. Abdomen X-Ray 05/15/18 00:00 CONCLUSION: The NG tube is barely entering the stomach. Assessment and Plan - Plan 57yo with DKA, resolving, electrolyte abnormalities -Swallow eval by speech- passed mechanical soft, NGT removed start liquid diet PT eval, ambulate possible transfer to floor soon
--- NOTE | 2018-05-18 12:48 | P.PNIM ---
Subjective Interval history: Pt pass ST swallow evaluation. NGT removed. Pt A&Ox3. Pt in good spirits. Physical Exam Vital signs: 05/18/18 10:00 05/18/18 11:00 05/18/18 12:00 Temperature 97.8 F Pulse Rate 70 67 88 Respiratory Rate 19 17 20 Blood Pressure 166/77 H 133/69 134/73 Pulse Oximetry 93 L 93 L 92 L Narrative: GENERAL: This is a well-nourished, well-developed patient, in no apparent distress. CARDIOVASCULAR: Regular rate and rhythm without murmurs, gallops, or rubs. RESPIRATORY: Clear to auscultation. Breath sounds equal bilaterally. No wheezes , rales, or rhonchi. GASTROINTESTINAL: Abdomen soft, non-tender, nondistended. Normal active bowel sounds MUSCULOSKELETAL: Extremities without clubbing, cyanosis, or edema. NEURO: A&Ox3, GIBSON - Urinary Catheter Management Indwelling Urethral Catheter Cath placed during this visit: yes, but has since been removed by the nurse Reason for continuing: Not indwelling catheter Insertion date: 05/13/18 Insertion time: 14:35 Removal date: 05/15/18 Removal time: 11:30 Results - Labs CBC & Chem 7: 05/17/18 03:17 05/18/18 07:27 Microbiology 05/13/18 17:27 Blood - Peripheral Aerobic Blood Culture - Final No growth in 5 days 05/13/18 17:27 Blood - Peripheral Anaerobic Blood Culture - Final No growth in 5 days 05/13/18 17:22 Blood - Peripheral Aerobic Blood Culture - Final No growth in 5 days 05/13/18 17:22 Blood - Peripheral Anaerobic Blood Culture - Final No growth in 5 days - Imaging Chest X-Ray 05/12/18 03:48 No evidence of acute cardiopulmonary disease. Gastrografin Study 05/12/18 05:51 CONCLUSION: Initial films have suggested obstruction of the sleeve. The sleeve is not obstructed but poorly empties even in the upright position. Abdomen X-Ray 05/13/18 00:00 Nonspecific abdomen. Chest X-Ray 05/13/18 10:48 Mild interstitial prominence otherwise negative Abdomen/Pelvis CT 05/13/18 12:03 1. No acute findings. Chest CT 05/13/18 12:03 CONCLUSION: 1. Small pericardial effusion and mild dependent atelectasis. 2. Otherwise unremarkable. Head MRI 05/14/18 00:00 CONCLUSION: 1. Negative MR Brain non contrast. Abdomen X-Ray 05/15/18 00:00 CONCLUSION: The NG tube is barely entering the stomach. 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 Pt with recent dysphagia. gastrographin swallow demonstrated delayed movement of contrast through the gastric sleeve, but EGD did not demonstrate any strictures. Pt admitted with AG of 21. Pt with metabolic encephalopathy. MRI brain showed no acute findings. - hypernatremic, resolved 05/18. - D5W with KCL stopped - appreciate input from Neurology - EEG (05/16) --> slowing, no seizure activity - Pt passed ST swallow evaluation (05/18) - NGT removed (05/18) - start on diet: clears - transfer to general medical floor - PT consultation - anticipate d/c to home in 1-2 days DM2 - improved - levemir to 20 units BID - continue SSI (2) Acidosis, metabolic Code(s): E87.2 - Acidosis Status: Acute (3) Dysphagia Code(s): R13.10 - Dysphagia, unspecified Status: Acute (3) Dysphagia Qualifiers: Dysphagia type: unspecified Qualified Code(s): R13.10 - Dysphagia, unspecified
[2018-05-18] MEDS: Enoxaparin Inj 40 MG/0.4 ML Syringe SQ SCH (19:17)
[2018-05-19] MEDS: Insulin NovoLOG Aspart Correctional Sugar Inj SQ SCH ×6 (01:49→21:12)
[2018-05-19] MEDS: Insulin Detemir Inj 1,000 UNIT/10 ML Vial SQ SCH (08:13)
--- NOTE | 2018-05-19 11:23 | P.PNIM ---
Subjective Interval history: Pt is tolerating liquids. Mentation back to normal. Physical Exam Vital signs: 05/19/18 06:00 05/19/18 07:00 05/19/18 07:01 Temperature Pulse Rate 67 66 63 Respiratory Rate 17 11 L 11 L Blood Pressure 130/63 142/63 H Pulse Oximetry 74 L 75 L Narrative: GENERAL: This is a well-nourished, well-developed patient, in no apparent distress. CARDIOVASCULAR: Regular rate and rhythm without murmurs, gallops, or rubs. RESPIRATORY: Clear to auscultation. Breath sounds equal bilaterally. No wheezes , rales, or rhonchi. GASTROINTESTINAL: Abdomen soft, non-tender, nondistended. Normal active bowel sounds MUSCULOSKELETAL: Extremities without clubbing, cyanosis, or edema. NEURO: A&Ox3, GIBSON - Urinary Catheter Management Indwelling Urethral Catheter Cath placed during this visit: yes, but has since been removed by the nurse Reason for continuing: Not indwelling catheter Insertion date: 05/13/18 Insertion time: 14:35 Removal date: 05/15/18 Removal time: 11:30 Results - Labs CBC & Chem 7: 05/17/18 03:17 05/20/18 04:54 Microbiology 05/13/18 17:27 Blood - Peripheral Aerobic Blood Culture - Final No growth in 5 days 05/13/18 17:27 Blood - Peripheral Anaerobic Blood Culture - Final No growth in 5 days 05/13/18 17:22 Blood - Peripheral Aerobic Blood Culture - Final No growth in 5 days 05/13/18 17:22 Blood - Peripheral Anaerobic Blood Culture - Final No growth in 5 days - Imaging Gastrografin Study 05/12/18 05:51 Initial films have suggested obstruction of the sleeve. The sleeve is not obstructed but poorly empties even in the upright position. Abdomen X-Ray 05/13/18 00:00 Nonspecific abdomen. Chest X-Ray 05/13/18 10:48 Mild interstitial prominence otherwise negative Abdomen/Pelvis CT 05/13/18 12:03 1. No acute findings. Chest CT 05/13/18 12:03 1. Small pericardial effusion and mild dependent atelectasis. 2. Otherwise unremarkable. Head MRI 05/14/18 00:00 1. Negative MR Brain non contrast. Abdomen X-Ray 05/15/18 00:00 The NG tube is barely entering the stomach. 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 Pt with recent dysphagia. gastrographin swallow demonstrated delayed movement of contrast through the gastric sleeve, but EGD did not demonstrate any strictures. Pt admitted with AG of 21. Pt with metabolic encephalopathy. MRI brain showed no acute findings. - hypernatremic, resolved 05/18. - D5W with KCL stopped - appreciate input from Neurology - EEG (05/16) --> slowing, no seizure activity - Pt passed ST swallow evaluation (05/18) - NGT removed (05/18) - advance to soft diet - awaiting general medical bed - anticipate d/c to home 05/20 DM2 - improved - levemir to 20 units BID - continue SSI (2) Acidosis, metabolic Code(s): E87.2 - Acidosis Status: Acute (3) Dysphagia Code(s): R13.10 - Dysphagia, unspecified Status: Acute (3) Dysphagia Qualifiers: Dysphagia type: unspecified Qualified Code(s): R13.10 - Dysphagia, unspecified
[2018-05-19 12:14] LABS: Anion Gap 4 meq/L (5-15); Blood Urea Nitrogen 13 mg/dL (7-18); Calcium 8.8 mg/dL (8.5-10.1); Carbon Dioxide 35.8 meq/L (21.0-32.0); Chloride 105 meq/L (98-107); Glomerular Filtration Rate Greater Than 89 mL/min (>89); Glucose,Random 145 mg/dL (74-106); Sodium 145 meq/L (136-145)
[2018-05-19 12:15] LABS: Potassium 4.2 meq/L (3.5-5.1)
--- NOTE | 2018-05-19 13:05 | P.PNGS ---
Subjective Patient reports: no new complaints, feels better, tolerating liquids well, bowel movement, nausea Physical Exam Vital signs: Vital Signs 05/18/18 14:00 05/18/18 15:00 05/18/18 16:00 Temperature Pulse Rate 85 75 65 Respiratory Rate 21 17 19 Blood Pressure 124/63 116/59 L 114/58 L Pulse Oximetry 05/18/18 17:00 05/18/18 18:00 05/18/18 18:02 Temperature Pulse Rate 65 84 90 Respiratory Rate 16 20 Blood Pressure 126/61 Pulse Oximetry 05/18/18 19:00 05/18/18 19:06 05/18/18 20:00 Temperature 98.1 F Pulse Rate 81 82 96 H Respiratory Rate 27 H 25 H 35 H Blood Pressure 122/61 114/56 L Pulse Oximetry 95 05/18/18 21:00 05/18/18 22:00 05/18/18 22:13 Temperature Pulse Rate 80 75 78 Respiratory Rate 26 H 21 28 H Blood Pressure 121/65 121/65 Pulse Oximetry 85 L 74 L 05/18/18 23:00 05/19/18 00:00 05/19/18 01:00 Temperature 99.6 F Pulse Rate 70 66 76 Respiratory Rate 17 15 23 Blood Pressure 138/73 150/70 H 150/71 H Pulse Oximetry 94 L 96 05/19/18 02:00 05/19/18 03:00 05/19/18 04:00 Temperature 98.6 F Pulse Rate 62 80 62 Respiratory Rate 14 21 13 Blood Pressure 137/65 143/67 H 141/64 H Pulse Oximetry 97 05/19/18 05:00 05/19/18 06:00 05/19/18 07:00 Temperature Pulse Rate 58 L 67 66 Respiratory Rate 16 17 11 L Blood Pressure 160/72 H 130/63 Pulse Oximetry 88 L 74 L 05/19/18 07:01 05/19/18 08:00 05/19/18 10:00 Temperature 98.1 F Pulse Rate 63 96 H 89 Respiratory Rate 11 L 35 H Blood Pressure 142/63 H Pulse Oximetry 75 L Intake & Output 05/18/18 05/19/18 05/19/18 18:59 06:59 18:59 Intake Total 1400 / 1400 0 / 0 Output Total 1800 / 1800 500 / 500 Balance -400 / -400 -500 / -500 Weight 87.5 kg Intake: IV 1000 / 1000 D5W + KCL 20 mEq Inj 1,000 ML @ 1000 / 1000 85 mls/hr IV.SIG .[id number] [facility] Rx#:[id number] Oral 400 / 400 0 / 0 Tube Feeding 0 / 0 Water Bolus Amount 0 / 0 Output: Urine 1800 / 1800 500 / 500 Stool 0 / 0 Urine/Stool Mix 0 / 0 Other: # Voids 2 # Incontinent Voids 0 Date of Last Bowel Movement 05/18/18 05/18/18 05/18/18 # Bowel Movements 3 0 # Incontinent Bowel Movements 0 Narrative: GENERAL: This is a well-nourished, well-developed patient, in no apparent distress. CARDIOVASCULAR: Regular rate and rhythm without murmurs, gallops, or rubs. RESPIRATORY: Clear to auscultation. Breath sounds equal bilaterally. No wheezes , rales, or rhonchi. GASTROINTESTINAL: Abdomen soft,nondistended. MUSCULOSKELETAL: Extremities without clubbing, cyanosis, or edema. NEURO: A&Ox3, GIBSON - Urinary Catheter Management Indwelling Urethral Catheter Cath placed during this visit: yes, but has since been removed by the nurse Reason for continuing: Not indwelling catheter Insertion date: 05/13/18 Insertion time: 14:35 Removal date: 05/15/18 Removal time: 11:30 Results - Labs 05/17/18 03:17 05/19/18 10:50 Laboratory Results - last 24 hr 05/18/18 05/18/18 05/19/18 17:44 19:33 00:02 Sodium Potassium Chloride Carbon Dioxide Anion Gap BUN Creatinine Estimated GFR POC Glucose 90 80 103 Random Glucose Calcium 05/19/18 05/19/18 05/19/18 03:34 08:11 10:50 Sodium 145 Potassium 4.2 Chloride 105 Carbon Dioxide 35.8 H Anion Gap 4 L BUN 13 Creatinine 0.51 Estimated GFR Greater than 89 POC Glucose 114 H 105 Random Glucose 145 H Calcium 8.8 - Imaging Imaging: ITS Impressions Gastrografin Study 05/12/18 05:51 CONCLUSION: Initial films have suggested obstruction of the sleeve. The sleeve is not obstructed but poorly empties even in the upright position. Chest X-Ray 05/13/18 10:48 CONCLUSION: Mild interstitial prominence otherwise negative Abdomen/Pelvis CT 05/13/18 12:03 CONCLUSION: 1. No acute findings. Chest CT 05/13/18 12:03 CONCLUSION: 1. Small pericardial effusion and mild dependent atelectasis. 2. Otherwise unremarkable. Head MRI 05/14/18 00:00 CONCLUSION: 1. Negative MR Brain non contrast. Abdomen X-Ray 05/15/18 00:00 CONCLUSION: The NG tube is barely entering the stomach. Assessment and Plan - Plan 57yo with DKA, resolving, electrolyte abnormalities -Tolerating liquids well advance to soft diet, if N/V occur regress to full liquid -Transfer to floor -Ambulate as tolerated -Treat nausea PRN
[2018-05-19] MEDS: Enoxaparin Inj 40 MG/0.4 ML Syringe SQ SCH (18:46)
[2018-05-20 06:33] LABS: Anion Gap 9 meq/L (5-15); Blood Urea Nitrogen 12 mg/dL (7-18); Calcium 8.1 mg/dL (8.5-10.1); Carbon Dioxide 32.8 meq/L (21.0-32.0); Chloride 103 meq/L (98-107); Glomerular Filtration Rate Greater Than 89 mL/min (>89); Glucose,Random 178 mg/dL (74-106); Potassium 3.3 meq/L (3.5-5.1); Sodium 145 meq/L (136-145)
[2018-05-20 08:22] VITALS: RESP 17; O2SAT 94
[2018-05-20] MEDS: Insulin NovoLOG Aspart Correctional Sugar Inj SQ SCH ×2 (08:25→12:45)
[2018-05-20] MEDS ORDERED: Potassium Chloride 25 MEQ Effervescent Tablet PO ONE (10:34)
--- NOTE | 2018-05-20 10:58 | P.PNGS ---
Subjective Patient reports: no new complaints, feels better, bowel movement Physical Exam Vital signs: Vital Signs 05/19/18 12:00 05/19/18 14:00 05/19/18 16:00 Temperature 98.6 F 97.4 F L Pulse Rate 83 92 H 63 Respiratory Rate 35 H 19 Blood Pressure 119/83 132/61 Pulse Oximetry 94 L 95 05/19/18 20:00 05/20/18 00:00 05/20/18 08:00 Temperature 97.7 F 97.9 F 97.7 F Pulse Rate 78 72 67 Respiratory Rate 17 18 17 Blood Pressure 137/61 114/57 L 144/70 H Pulse Oximetry 97 96 94 L Intake & Output 05/19/18 05/20/18 05/20/18 18:59 06:59 18:59 Intake Total 480 / 480 500 / 500 Balance 480 / 480 500 / 500 Weight 86.3 kg 86.3 kg Intake: Oral 480 / 480 500 / 500 Other: # Voids 2 Date of Last Bowel Movement 05/18/18 05/19/18 - Routine Abdominal Exam Present: soft, normoactive bowel sounds - Urinary Catheter Management Indwelling Urethral Catheter Cath placed during this visit: yes, but has since been removed by the nurse Reason for continuing: Not indwelling catheter Insertion date: 05/13/18 Insertion time: 14:35 Removal date: 05/15/18 Removal time: 11:30 Results - Labs 05/17/18 03:17 05/20/18 04:54 Laboratory Results - last 24 hr 05/19/18 05/19/18 05/19/18 10:50 13:14 16:37 Sodium 145 Potassium 4.2 Chloride 105 Carbon Dioxide 35.8 H Anion Gap 4 L BUN 13 Creatinine 0.51 Estimated GFR Greater than 89 POC Glucose 166 H 183 H Random Glucose 145 H Calcium 8.8 05/19/18 05/20/18 05/20/18 21:04 04:54 07:26 Sodium 145 Potassium 3.3 L D Chloride 103 Carbon Dioxide 32.8 H Anion Gap 9 BUN 12 Creatinine 0.52 Estimated GFR Greater than 89 POC Glucose 153 H 194 H Random Glucose 178 H Calcium 8.1 L - Imaging Imaging: ITS Impressions Gastrografin Study 05/12/18 05:51 CONCLUSION: Initial films have suggested obstruction of the sleeve. The sleeve is not obstructed but poorly empties even in the upright position. Chest X-Ray 05/13/18 10:48 CONCLUSION: Mild interstitial prominence otherwise negative Abdomen/Pelvis CT 05/13/18 12:03 CONCLUSION: 1. No acute findings. Chest CT 05/13/18 12:03 CONCLUSION: 1. Small pericardial effusion and mild dependent atelectasis. 2. Otherwise unremarkable. Head MRI 05/14/18 00:00 CONCLUSION: 1. Negative MR Brain non contrast. Abdomen X-Ray 05/15/18 00:00 CONCLUSION: The NG tube is barely entering the stomach. Assessment and Plan - Plan 57yo with DKA, resolving, electrolyte abnormalities improving -Tolerating soft diet, -Ambulate as tolerated - correct blood surgar and lytes -Treat nausea PRN - ok to d/c from surgery stand point, continue soft diet f/u with Dr. Green
[2018-05-20 12:08] VITALS: BP 112/66; PULSE 72; TEMP 98.1
--- NOTE | 2018-05-20 12:47 | P.DS ---
<Jeannie Curtis W - Last Filed: 05/20/18 17:15> Date of admission: 05/12/18 05:54 Primary care physician: Ghada Vaughn MD Attending physician on discharge: Stalin Willson Anticipated date of discharge: 05/20/18 Brief History from admission: 57yF who presents by rapid response for acute altered mentation. per chart review, she had a gastric sleeve in 02/2018 and has had recent dysphagia. gastrographin swallow demonstrated delayed movement of contrast through the gastric sleeve, but EGD did not demonstrate any strictures. She was admitted with an anion gap of 21 and given iv fluids. she has a history of diabetes and has been npo with glucose of 285 mg/dL on my evaluation. Per nursing report, she never returned back to neurologic baseline after anesthesia for EGD. this morning, ABG was ordered with was 6.9//137 with BE -28 and a calculated bicarb of 2. She arrives in acute distress. ROS unobtainable due to mental status. emergently given 4L LR and 1 amp bicarb. CXR and KUB did not demonstrate free air. no additional information is available from the patient. DS: Diagnosis - Discharge Diagnosis (1) DKA (diabetic ketoacidoses) Status: Acute (2) Electrolyte abnormality Status: Acute (3) Acidosis, metabolic Status: Acute (4) Nausea & vomiting Status: Acute (5) Metabolic encephalopathy Status: Acute DS: Medications - Discharge Medications Prescriptions: insulin detemir U-100 [Levemir U-100 Insulin] 5 unit SUBCUT QPM 30 Days #1.5 ml ondansetron 4 mg PO Q6H PRN #20 tab PRN Reason: NASUEA DS: Summary Hospital Course: AMS due to Metabolic acidosis Severe life-threatening anion-gap metabolic acidosis Severe dehydration DKA electrolyte abnormalities including hypernatremia Pt is a 57 y/o F who had a 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 Pt with recent dysphagia. gastrographin swallow demonstrated delayed movement of contrast through the gastric sleeve, but EGD did not demonstrate any strictures. Pt admitted with AG of 21. 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 MRI brain showed no acute findings. - hypernatremic, resolved 05/18. - D5W with KCL stopped - appreciate input from Neurology - EEG (05/16) --> slowing, no seizure activity - Pt passed ST swallow evaluation (05/18) - NGT removed (05/18) - advance to soft diet - transferred out of ICU to medical floor - anticipate d/c to home 05/20 DM DKA - improved - levemir to 5 units QHS - continue SSI - Time Spent with Patient Total time spent providing and/or coordinating discharge services: Greater than 30 minutes Exam Vital signs: Vital Signs 05/19/18 14:00 05/19/18 16:00 05/19/18 20:00 Temperature 97.4 F L 97.7 F Pulse Rate 92 H 63 78 Respiratory Rate 19 17 Blood Pressure 132/61 137/61 Pulse Oximetry 95 97 05/20/18 00:00 05/20/18 08:00 05/20/18 12:00 Temperature 97.9 F 97.7 F 98.1 F Pulse Rate 72 67 72 Respiratory Rate 18 17 17 Blood Pressure 114/57 L 144/70 H 112/66 Pulse Oximetry 96 94 L 94 L Intake & Output 05/19/18 05/20/18 05/20/18 18:59 06:59 18:59 Intake Total 480 / 480 500 / 500 Balance 480 / 480 500 / 500 Weight 86.3 kg 86.3 kg Intake: Oral 480 / 480 500 / 500 Other: # Voids 2 Date of Last Bowel Movement 05/18/18 05/19/18 Narrative: GENERAL: This is a well-nourished, well-developed patient, in no apparent distress. CARDIOVASCULAR: Regular rate and rhythm RESPIRATORY: Clear to auscultation. Breath sounds equal bilaterally. GASTROINTESTINAL: Abdomen soft, non-tender, nondistended. Normal active bowel sounds MUSCULOSKELETAL: Extremities without clubbing, cyanosis, or edema. NEURO: A&Ox3, GIBSON Results Procedures completed during hospitalization: None Completed studies during hospitalization: Pending at discharge 05/12/18 07:51 Surgical [PTH] Routine Labs on day of discharge: Labs from last 24 hours 05/20/18 05/20/18 05/20/18 11:58 07:26 04:54 Sodium 145 Potassium 3.3 L D Chloride 103 Carbon Dioxide 32.8 H Anion Gap 9 BUN 12 Creatinine 0.52 Estimated GFR Greater than 89 POC Glucose 223 H 194 H Random Glucose 178 H Calcium 8.1 L 05/19/18 05/19/18 05/19/18 21:04 16:37 13:14 Sodium Potassium Chloride Carbon Dioxide Anion Gap BUN Creatinine Estimated GFR POC Glucose 153 H 183 H 166 H Random Glucose Calcium - Impressions ITS Impressions Gastrografin Study 05/12/18 05:51 CONCLUSION: Initial films have suggested obstruction of the sleeve. The sleeve is not obstructed but poorly empties even in the upright position. Chest X-Ray 05/13/18 10:48 CONCLUSION: Mild interstitial prominence otherwise negative Abdomen/Pelvis CT 05/13/18 12:03 CONCLUSION: 1. No acute findings. Chest CT 05/13/18 12:03 CONCLUSION: 1. Small pericardial effusion and mild dependent atelectasis. 2. Otherwise unremarkable. Head MRI 05/14/18 00:00 CONCLUSION: 1. Negative MR Brain non contrast. Abdomen X-Ray 05/15/18 00:00 CONCLUSION: The NG tube is barely entering the stomach. <Stalin Willson B - Last Filed: 05/28/18 17:20> Date of admission: 05/12/18 05:54 Primary care physician: Ghada Vaughn MD DS: Diagnosis - Discharge Diagnosis (1) Metabolic encephalopathy Status: Acute (2) Acidosis, metabolic Status: Acute (3) Dysphagia Status: Acute DS: Summary Hospital Course: Patient examined. Assessment and plan formulated with Jeannie Curtis PA-C. I agree with the above. - Time Spent with Patient Total time spent providing and/or coordinating discharge services: Results Completed studies during hospitalization: Pending at discharge 05/12/18 07:51 Surgical [PTH] Routine - Impressions ITS Impressions Gastrografin Study 05/12/18 05:51 CONCLUSION: Initial films have suggested obstruction of the sleeve. The sleeve is not obstructed but poorly empties even in the upright position. Chest X-Ray 05/13/18 10:48 CONCLUSION: Mild interstitial prominence otherwise negative Abdomen/Pelvis CT 05/13/18 12:03 CONCLUSION: 1. No acute findings. Chest CT 05/13/18 12:03 CONCLUSION: 1. Small pericardial effusion and mild dependent atelectasis. 2. Otherwise unremarkable. Head MRI 05/14/18 00:00 CONCLUSION: 1. Negative MR Brain non contrast. Abdomen X-Ray 05/15/18 00:00 CONCLUSION: The NG tube is barely entering the stomach. Discharge Plan - Discharge Order Discharge Orders: Discharge Order (Routine); Ordered 05/20/18 Ordered By: Stalin Willson General Surgery Clear for Discharge (Routine); Ordered 05/20/18 Ordered By: Mikey Paniagua - Discharge Details Anticipated Discharge Date: 05/20/18 - Physicians Team Primary Care Provider: Ghada Vaughn Attending Provider: Chip Trotter Other Providers: Jerrell Casper MD ; Pa Maynard MD ; Stalin Willson DO ; Aleja Gannon MD ; [facility]
[2018-05-20] MEDS ORDERED: Insulin Detemir Inj 1,000 UNIT/10 ML Vial SQ SCH (21:00)
== END 2018-05-20 16:43 | disposition home or self-care (01) ==
LOC: NEPE 03:30 → NEDA 05:54 → NEPHCDU 09:47 → N05 09:59 → NEPHCDU 10:00 → HIMC 05-13 10:40 → N07 05-19 15:33
PROVIDERS: ADMIT Surgery; ATTEND Surgery